=== PATIENT | female | born 1950 | race Caucasian/White ===

== ENCOUNTER 2022-10-05 17:39 | Emergency (ER) | payer MEDICARE, SELFPAY ==
--- NOTE | ~2022-10-05 | XR_ITS ---
EXAMINATION: XR CHEST CLINICAL INFORMATION: SOB was with deep inspiration COMPARISON: None TECHNIQUE: 2 views of the chest were obtained. FINDINGS: The lungs are well-expanded and clear. The heart size and pulmonary vascularity is normal. No gross bony abnormality seen. XR/XR chest 2V IMPRESSION: Unremarkable chest exam
--- NOTE | ~2022-10-05 | CT_ITS ---
EXAMINATION: CT ANGIOGRAM OF THE CHEST WITH AND WITHOUT CONTRAST (CT PULMONARY ANGIOGRAM FOR PE) CLINICAL INFORMATION: Reason for Exam DYSPNEA; r/o PE COMPARISON: Chest radiograph about 6 hours ago TECHNIQUE: Prior to contrast administration, noncontrast localization images were obtained. Subsequently, multidetector volumetric imaging was performed from the thoracic inlet to below the diaphragms following the administration of 65 mL Omnipaque 350 intravenous contrast. No contrast reaction reported Sagittal, coronal, and MIP oblique sagittal reformatted images were obtained on the CT workstation, uploaded to PACS, and reviewed. This CT examination was performed using dose optimization techniques as appropriate, variously including the following: *Automated exposure control *Adjustment of mA and/or kV according to patient size (this includes techniques or standardized protocols for targeted exams where dose is matched to indication/reason for exam; i.e. extremities or head) *Use of iterative reconstruction technique Total exam dose-length product 221 mGy-cm FINDINGS: QUALITY OF STUDY/CONTRAST BOLUS: Satisfactory. PULMONARY ARTERIES: No central or segmental pulmonary emboli. THORACIC AORTA: No aneurysm or dissection. 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 No focal consolidation, nodules or masses. There is interstitial prominence seen with some septal thickening raising the question of CHF. Unfortunately no prior imaging is available to assess if some of these changes are chronic. PLEURA: No pleural effusion or pneumothorax. MEDIASTINUM: Normal heart size. No pericardial effusion. No hilar or mediastinal lymphadenopathy. No evidence of septal bowing or right heart strain. CORONARY ARTERY CALCIFICATION: None visualized on this study. CHEST WALL/AXILLA: No axillary or internal mammary lymphadenopathy. OSSEOUS STRUCTURES: No acute or suspicious osseous abnormality. UPPER ABDOMEN: There is a 1.7 cm mass at the upper pole of the left kidney measuring water density consistent with a benign Bosniak class I cyst which needs no additional imaging or follow-up No reflux of contrast into the hepatic veins to suggest elevated right heart pressures. CT/CT angio chest PE protocol IMPRESSION: 1. No evidence of pulmonary emboli. 2. Interstitial prominence with some septal thickening raising the question of mild CHF. Please correlate clinically. VTE: negative.
--- NOTE | 2022-10-05 17:57 | ED.SOB ---
HPI - SOB/Dyspnea General Chief Complaint: Dyspnea <BONITA Marte - Last Filed: 10/05/22 18:09> Stated Complaint: Sob, concerned clot in heart? <BONITA Marte - Last Filed: 10/05/22 18:09> Time Seen by Provider: 10/05/22 21:44 <BONITA Marte - Last Filed: 10/05/22 18:09> Source: patient <Anisa Bacon MD - Last Filed: 10/06/22 00:55> Mode of arrival: ambulatory <Anisa Bacon MD - Last Filed: 10/06/22 00:55> Limitations: no limitations <Anisa Bacon MD - Last Filed: 10/06/22 00:55> History of Present Illness HPI Narrative: Patient comes to the emergency room complaining of 1 week of shortness of breath with exertion. Patient states that 1 week ago she woke up the stairs from the 1st floor to the 2nd [place], by the time she reached the top, patient was very short of breath. No chest pain. No syncopal or near syncopal episodes. Patient went to see her primary care physician, EKG, x-rays, labs were ordered. Also, patient is scheduled for an echocardiogram. <Anisa Bacon MD - Last Filed: 10/06/22 00:55> Related Data Allergies/Adverse Reactions: Allergies Allergy/AdvReac Type Severity Reaction Status Date / Time Penicillins Allergy Hallucinati Verified 10/05/22 17:57 ons <BONITA Marte - Last Filed: 10/05/22 18:09> Review of Systems Review of Systems: Constitutional : No Weight loss, No Fever, No Chills, No Night Sweats, No Fatigue, No Malaise ENT/Mouth : No Hearing loss, No Ear Pain, No Nasal Congestion, No Sinus Pain, No Hoarseness, No sore throat, No Rhinorrhea, No Swallowing Difficulty Eyes: No Eye Pain, No Swelling, No Redness, No Foreign Body, No Discharge, No Vision Changes Cardiovascular : No Chest Pain, no orthopnea, no edema, complaining of shortness of breath with exertion Respiratory : No Cough, No Sputum, No Wheezing, No Smoke Exposure, complaining of exertional dyspnea Gastrointestinal : No Nausea, No Vomiting, No Diarrhea, No Constipation, No abdominal Pain, No Hematochezia, No Melena Genitourinary : no irregular bleeding, No Dysuria, No Urinary Frequency, No Hematuria, No Urinary Incontinence, No Urgency, No Flank Pain, No Urinary Flow Changes, No Hesitancy Musculoskeletal : No joint pain, No Myalgias, No Joint Swelling Skin : No Skin Lesions, No rash Neuro : No Weakness, No Numbness, No Paresthesias, No Loss of Consciousness, No Dizziness, No Headache Psych : No Anxiety/Panic, No Depression, No SI/HI/AH/VH, No Social Issues, Heme/Lymph: No Bruising, No Bleeding,No Lymphadenopathy Endocrine : No Polyuria, No Polydipsia, No Temperature Intolerance <Anisa Bacon MD - Last Filed: 10/06/22 00:55> [facility] Social History Social History: Social History Advance Directives: Yes Advance Directives Information Provided: No Advance Directives on File: No <BONITA Marte - Last Filed: 10/05/22 18:09> Physical Exam Vital Signs: Vital Signs: Last Vital Signs Temp 97.2 F 10/05/22 22:36 Pulse 91 10/05/22 22:36 Resp 16 10/05/22 22:36 BP 148/75 H 10/05/22 22:36 Pulse Ox 96 10/05/22 22:36 O2 Del Method 10/05/22 22:36 BMI result Body Mass Index 28.3 <BONITA Marte - Last Filed: 10/05/22 18:09> Vital Signs: Last Vital Signs Temp 97.2 F 10/05/22 22:36 Pulse 91 10/05/22 22:36 Resp 16 10/05/22 22:36 BP 148/75 H 10/05/22 22:36 Pulse Ox 96 10/05/22 22:36 O2 Del Method 10/05/22 22:36 BMI result Body Mass Index 28.3 <Anisa Bacon MD - Last Filed: 10/06/22 00:55> Const: Other: Appearance: Alert. Oriented X3. No acute distress. Eyes: Pupils equal, round and reactive to light. ENT: Pharynx normal. Neck: Normal inspection. Neck supple. No lymph nodes noted. No crepitus CVS: Normal heart rate and rhythm. Pulses normal. Normal S1 and S2 Respiratory: No respiratory distress. Breath sounds normal. No Wheezing. No rales Abdomen: Soft and nontender. No rigidity. No distention. Skin: Skin warm and dry. Normal skin color. Normal skin turgor. Extremities: No lower extremity edema. No Lacerations. No Rash Neuro: Oriented X 3. No motor deficit. No sensory deficit. Moving all extremities. No slurred speech. CN 2 through 12 grossly intact Psych: calm, cooperative, anxious <Anisa Bacon MD - Last Filed: 10/06/22 00:55> Course Course Course Narrative: RME-17:57PM - 72yoF presenting to the ED with c/o SOB/MORRISON since Wednesday when she [place] the mall and unable to take deep breaths with pain when she takes a deep breath. Reports associated intermittent productive cough. Cleared colored sputum although on first day had black sputum . Hx of knee replacement in 2015 no recent surgeries. Seen by PCP on Wednesday and had labs, had an EKG which revealed RSR in V1 and PCP ordered a outpatient stress test and echocardiogram and was instructed to start a baby aspirin. Reports she feel on wednesday and injuried her right hand and bruise to right amish area. No LOC. no prolonged down time. Denies dizziness, weakness, leg swelling, calf tenderness, recent travel, recent immobilization or surgeries, history of DVT or PE, history of cancer, N/V/D, abdominal pain or any other symptoms complaints or concerns at this time. Plan: Labs, CXR, EKG, UA, COVID/RSV/FLU swab. Pt sent in waiting room to be evaluated the ED. <BONITA Marte - Last Filed: 10/05/22 18:09> Medications Administered Discontinued Medications Generic Name Dose Route Start Last Admin Trade Name Freq PRN Reason Stop Dose Admin Iohexol 65 ml 10/05/22 23:51 10/05/22 23:54 Iohexol 350 Mg/Ml 100 Ml Infus..Btl IV 10/05/22 23:52 65 ml ONCE ONE Administration <BONITA Marte - Last Filed: 10/05/22 18:09> Medications Administered Discontinued Medications Generic Name Dose Route Start Last Admin Trade Name Freq PRN Reason Stop Dose Admin Iohexol 65 ml 10/05/22 23:51 10/05/22 23:54 Iohexol 350 Mg/Ml 100 Ml Infus..Btl IV 10/05/22 23:52 65 ml ONCE ONE Administration <Anisa Bacon MD - Last Filed: 10/06/22 00:55> Medical Decision Making Medical Decision Making [facility] Narrative: -hematology and D-dimer pending -chemistries unremarkable -patient tested negative for influenza, RSV and COVID -patient's urine shows trace leukocyte esterase, patient has no UTI symptoms, no antibiotic indicated at this time -chest x-ray unremarkable -EKG interpreted by me: Sinus heart rate 94, no ST segment depression or elevation, no T-wave inversion, QTC 430 -I discussed with the patient that her CT scan for pulmonary embolism was negative. -patient was ambulated around the emergency room, patient's oxygen saturation remained at 97% the whole time. Patient did not have any episodes of shortness of breath or syncopal or near syncopal episodes. <Anisa Bacon MD - Last Filed: 10/06/22 00:55> Differential Diagnosis Differential Diagnoses: The differential diagnosis associated with the presentation includes (Pulmonary embolism, deconditioning, CHF) <Anisa Bacon MD - Last Filed: 10/06/22 00:55> Lab Data [facility] Lab Attestation statement: I reviewed the patient's lab results. <Anisa Bacon MD - Last Filed: 10/06/22 00:55> Result Diagrams: 10/05/22 19:13 10/05/22 19:14 <BONITA Marte - Last Filed: 10/05/22 18:09> Labs: Lab Results 10/05/22 10/05/22 10/05/22 Range/Units 19:13 19:13 19:13 WBC Cancelled RBC Cancelled Hgb Cancelled Hct Cancelled MCV Cancelled MCH Cancelled MCHC Cancelled RDW Cancelled Plt Count Cancelled MPV Cancelled Immature Gran % (Auto) Cancelled Neut % (Auto) Cancelled Lymph % (Auto) Cancelled [place] % (Auto) Cancelled Eos % (Auto) Cancelled Baso % (Auto) Cancelled Lymph # (Auto) Cancelled [place] # (Auto) Cancelled Eos # (Auto) Cancelled Baso # (Auto) Cancelled Abs Immat Gran (auto) Cancelled Absolute Neuts (auto) Cancelled Absolute Nucleated RBC Cancelled Nucleated RBC % (auto) Cancelled PT 13.0 (10.0-13.1) SEC INR 1.1 (0.9-1.1) D-Dimer High Sensitivty 247 NG/ML Sodium (135-145) mmol/L Potassium (3.3-5.1) mmol/L Chloride (96-108) mmol/L Carbon Dioxide (22-29) mmol/L Anion Gap (12-20) BUN (9-16) mg/dL Creatinine (0.5-1.4) mg/dL Estim Creat Clear Calc Estimated GFR Random Glucose (60-115) mg/dL Calcium (8.4-10.2) mg/dL Magnesium (1.6-2.6) mg/dL Total Bilirubin (0.0-1.0) mg/dL AST (5-31) U/L ALT (0-31) U/L Alkaline Phosphatase (39-117) U/L Troponin I High Sens < 3.5 (<3.5-17.0) ng/L B-Natriuretic Peptide (<100) pg/mL Total Protein (6.5-8.0) g/dL Albumin (3.5-5.0) g/dL Urine Color Urine Appearance Urine pH (5.0-9.0) Ur Specific [place] (1.005-1.025) Urine Protein (Neg-Trace) mg/dL Urine Glucose (UA) (Negative) mg/dL Urine Ketones (Negative) mg/dL Urine Blood (Negative) Urine Nitrite (Negative) Ur Leukocyte Esterase (Negative) Urine RBC (0-2) /HPF Urine WBC (0-5) /HPF Ur Squamous Epith Cells (0-2) /HPF Urine Bacteria (None Seen) Hyaline Casts (0-2) /LPF Influenza Type A (PCR) (Negative) Influenza Type B (PCR) (Negative) RSV RNA Qual (PCR) (Negative) SARS-CoV-2 RNA (RT-PCR) (Negative) 10/05/22 10/05/22 10/05/22 Range/Units 19:13 19:13 19:13 WBC RBC Hgb Hct MCV MCH MCHC RDW Plt Count MPV Immature Gran % (Auto) Neut % (Auto) Lymph % (Auto) [place] % (Auto) Eos % (Auto) Baso % (Auto) Lymph # (Auto) [place] # (Auto) Eos # (Auto) Baso # (Auto) Abs Immat Gran (auto) Absolute Neuts (auto) Absolute Nucleated RBC Nucleated RBC % (auto) PT (10.0-13.1) SEC INR (0.9-1.1) D-Dimer High Sensitivty NG/ML Sodium (135-145) mmol/L Potassium (3.3-5.1) mmol/L Chloride (96-108) mmol/L Carbon Dioxide (22-29) mmol/L Anion Gap (12-20) BUN (9-16) mg/dL Creatinine (0.5-1.4) mg/dL Estim Creat Clear Calc Estimated GFR Random Glucose (60-115) mg/dL Calcium (8.4-10.2) mg/dL Magnesium (1.6-2.6) mg/dL Total Bilirubin (0.0-1.0) mg/dL AST (5-31) U/L ALT (0-31) U/L Alkaline Phosphatase (39-117) U/L Troponin I High Sens (<3.5-17.0) ng/L B-Natriuretic Peptide < 10 (<100) pg/mL Total Protein (6.5-8.0) g/dL Albumin (3.5-5.0) g/dL Urine Color Dark Yellow Urine Appearance Clear Urine pH 5.5 (5.0-9.0) Ur Specific [place] >= 1.030 H (1.005-1.025) Urine Protein Trace (Neg-Trace) mg/dL Urine Glucose (UA) Negative (Negative) mg/dL Urine Ketones Trace (Negative) mg/dL Urine Blood Negative (Negative) Urine Nitrite Negative (Negative) Ur Leukocyte Esterase Trace H (Negative) Urine RBC 0-2 (0-2) /HPF Urine WBC 0-5 (0-5) /HPF Ur Squamous Epith Cells 3-5 (0-2) /HPF Urine Bacteria None Seen (None Seen) Hyaline Casts 0-2 (0-2) /LPF Influenza Type A (PCR) NEGATIVE (Negative) Influenza Type B (PCR) NEGATIVE (Negative) RSV RNA Qual (PCR) NEGATIVE (Negative) SARS-CoV-2 RNA (RT-PCR) NEGATIVE (Negative) 10/05/22 10/05/22 Range/Units 19:14 22:01 WBC 3.8 L RBC 4.08 L Hgb 12.1 Hct 36.6 L MCV 89.7 MCH 29.7 MCHC 33.1 RDW 12.2 Plt Count 231 MPV 10.7 Immature Gran % (Auto) 0.3 Neut % (Auto) 58.3 Lymph % (Auto) 16.2 L [place] % (Auto) 15.1 H Eos % (Auto) 9.3 H Baso % (Auto) 0.8 Lymph # (Auto) 0.6 L [place] # (Auto) 0.6 Eos # (Auto) 0.4 Baso # (Auto) 0.0 Abs Immat Gran (auto) 0.01 Absolute Neuts (auto) 2.2 Absolute Nucleated RBC 0.000 Nucleated RBC % (auto) 0.0 PT (10.0-13.1) SEC INR (0.9-1.1) D-Dimer High Sensitivty NG/ML Sodium 141 (135-145) mmol/L Potassium 3.8 (3.3-5.1) mmol/L Chloride 103 (96-108) mmol/L Carbon Dioxide 28 (22-29) mmol/L Anion Gap 14 (12-20) BUN 19 H (9-16) mg/dL Creatinine 0.85 (0.5-1.4) mg/dL Estim Creat Clear Calc 48.5 Estimated GFR > 60 Random Glucose 83 (60-115) mg/dL Calcium 9.6 (8.4-10.2) mg/dL Magnesium 2.1 (1.6-2.6) mg/dL Total Bilirubin 0.6 (0.0-1.0) mg/dL AST 21 (5-31) U/L ALT 15 (0-31) U/L Alkaline Phosphatase 75 (39-117) U/L Troponin I High Sens (<3.5-17.0) ng/L B-Natriuretic Peptide (<100) pg/mL Total Protein 7.0 (6.5-8.0) g/dL Albumin 4.1 (3.5-5.0) g/dL Urine Color Urine Appearance Urine pH (5.0-9.0) Ur Specific [place] (1.005-1.025) Urine Protein (Neg-Trace) mg/dL Urine Glucose (UA) (Negative) mg/dL Urine Ketones (Negative) mg/dL Urine Blood (Negative) Urine Nitrite (Negative) Ur Leukocyte Esterase (Negative) Urine RBC (0-2) /HPF Urine WBC (0-5) /HPF Ur Squamous Epith Cells (0-2) /HPF Urine Bacteria (None Seen) Hyaline Casts (0-2) /LPF Influenza Type A (PCR) (Negative) Influenza Type B (PCR) (Negative) RSV RNA Qual (PCR) (Negative) SARS-CoV-2 RNA (RT-PCR) (Negative) <BONITA Marte - Last Filed: 10/05/22 18:09> Lab Results 10/05/22 10/05/22 10/05/22 Range/Units 19:13 19:13 19:13 WBC Cancelled RBC Cancelled Hgb Cancelled Hct Cancelled MCV Cancelled MCH Cancelled MCHC Cancelled RDW Cancelled Plt Count Cancelled MPV Cancelled Immature Gran % (Auto) Cancelled Neut % (Auto) Cancelled Lymph % (Auto) Cancelled [place] % (Auto) Cancelled Eos % (Auto) Cancelled Baso % (Auto) Cancelled Lymph # (Auto) Cancelled [place] # (Auto) Cancelled Eos # (Auto) Cancelled Baso # (Auto) Cancelled Abs Immat Gran (auto) Cancelled Absolute Neuts (auto) Cancelled Absolute Nucleated RBC Cancelled Nucleated RBC % (auto) Cancelled PT 13.0 (10.0-13.1) SEC INR 1.1 (0.9-1.1) D-Dimer High Sensitivty 247 NG/ML Sodium (135-145) mmol/L Potassium (3.3-5.1) mmol/L Chloride (96-108) mmol/L Carbon Dioxide (22-29) mmol/L Anion Gap (12-20) BUN (9-16) mg/dL Creatinine (0.5-1.4) mg/dL Estim Creat Clear Calc Estimated GFR Random Glucose (60-115) mg/dL Calcium (8.4-10.2) mg/dL Magnesium (1.6-2.6) mg/dL Total Bilirubin (0.0-1.0) mg/dL AST (5-31) U/L ALT (0-31) U/L Alkaline Phosphatase (39-117) U/L Troponin I High Sens < 3.5 (<3.5-17.0) ng/L B-Natriuretic Peptide (<100) pg/mL Total Protein (6.5-8.0) g/dL Albumin (3.5-5.0) g/dL Urine Color Urine Appearance Urine pH (5.0-9.0) Ur Specific [place] (1.005-1.025) Urine Protein (Neg-Trace) mg/dL Urine Glucose (UA) (Negative) mg/dL Urine Ketones (Negative) mg/dL Urine Blood (Negative) Urine Nitrite (Negative) Ur Leukocyte Esterase (Negative) Urine RBC (0-2) /HPF Urine WBC (0-5) /HPF Ur Squamous Epith Cells (0-2) /HPF Urine Bacteria (None Seen) Hyaline Casts (0-2) /LPF Influenza Type A (PCR) (Negative) Influenza Type B (PCR) (Negative) RSV RNA Qual (PCR) (Negative) SARS-CoV-2 RNA (RT-PCR) (Negative) 10/05/22 10/05/22 10/05/22 Range/Units 19:13 19:13 19:13 WBC RBC Hgb Hct MCV MCH MCHC RDW Plt Count MPV Immature Gran % (Auto) Neut % (Auto) Lymph % (Auto) [place] % (Auto) Eos % (Auto) Baso % (Auto) Lymph # (Auto) [place] # (Auto) Eos # (Auto) Baso # (Auto) Abs Immat Gran (auto) Absolute Neuts (auto) Absolute Nucleated RBC Nucleated RBC % (auto) PT (10.0-13.1) SEC INR (0.9-1.1) D-Dimer High Sensitivty NG/ML Sodium (135-145) mmol/L Potassium (3.3-5.1) mmol/L Chloride (96-108) mmol/L Carbon Dioxide (22-29) mmol/L Anion Gap (12-20) BUN (9-16) mg/dL Creatinine (0.5-1.4) mg/dL Estim Creat Clear Calc Estimated GFR Random Glucose (60-115) mg/dL Calcium (8.4-10.2) mg/dL Magnesium (1.6-2.6) mg/dL Total Bilirubin (0.0-1.0) mg/dL AST (5-31) U/L ALT (0-31) U/L Alkaline Phosphatase (39-117) U/L Troponin I High Sens (<3.5-17.0) ng/L B-Natriuretic Peptide < 10 (<100) pg/mL Total Protein (6.5-8.0) g/dL Albumin (3.5-5.0) g/dL Urine Color Dark Yellow Urine Appearance Clear Urine pH 5.5 (5.0-9.0) Ur Specific [place] >= 1.030 H (1.005-1.025) Urine Protein Trace (Neg-Trace) mg/dL Urine Glucose (UA) Negative (Negative) mg/dL Urine Ketones Trace (Negative) mg/dL Urine Blood Negative (Negative) Urine Nitrite Negative (Negative) Ur Leukocyte Esterase Trace H (Negative) Urine RBC 0-2 (0-2) /HPF Urine WBC 0-5 (0-5) /HPF Ur Squamous Epith Cells 3-5 (0-2) /HPF Urine Bacteria None Seen (None Seen) Hyaline Casts 0-2 (0-2) /LPF Influenza Type A (PCR) NEGATIVE (Negative) Influenza Type B (PCR) NEGATIVE (Negative) RSV RNA Qual (PCR) NEGATIVE (Negative) SARS-CoV-2 RNA (RT-PCR) NEGATIVE (Negative) 10/05/22 10/05/22 Range/Units 19:14 22:01 WBC 3.8 L RBC 4.08 L Hgb 12.1 Hct 36.6 L MCV 89.7 MCH 29.7 MCHC 33.1 RDW 12.2 Plt Count 231 MPV 10.7 Immature Gran % (Auto) 0.3 Neut % (Auto) 58.3 Lymph % (Auto) 16.2 L [place] % (Auto) 15.1 H Eos % (Auto) 9.3 H Baso % (Auto) 0.8 Lymph # (Auto) 0.6 L [place] # (Auto) 0.6 Eos # (Auto) 0.4 Baso # (Auto) 0.0 Abs Immat Gran (auto) 0.01 Absolute Neuts (auto) 2.2 Absolute Nucleated RBC 0.000 Nucleated RBC % (auto) 0.0 PT (10.0-13.1) SEC INR (0.9-1.1) D-Dimer High Sensitivty NG/ML Sodium 141 (135-145) mmol/L Potassium 3.8 (3.3-5.1) mmol/L Chloride 103 (96-108) mmol/L Carbon Dioxide 28 (22-29) mmol/L Anion Gap 14 (12-20) BUN 19 H (9-16) mg/dL Creatinine 0.85 (0.5-1.4) mg/dL Estim Creat Clear Calc 48.5 Estimated GFR > 60 Random Glucose 83 (60-115) mg/dL Calcium 9.6 (8.4-10.2) mg/dL Magnesium 2.1 (1.6-2.6) mg/dL Total Bilirubin 0.6 (0.0-1.0) mg/dL AST 21 (5-31) U/L ALT 15 (0-31) U/L Alkaline Phosphatase 75 (39-117) U/L Troponin I High Sens (<3.5-17.0) ng/L B-Natriuretic Peptide (<100) pg/mL Total Protein 7.0 (6.5-8.0) g/dL Albumin 4.1 (3.5-5.0) g/dL Urine Color Urine Appearance Urine pH (5.0-9.0) Ur Specific [place] (1.005-1.025) Urine Protein (Neg-Trace) mg/dL Urine Glucose (UA) (Negative) mg/dL Urine Ketones (Negative) mg/dL Urine Blood (Negative) Urine Nitrite (Negative) Ur Leukocyte Esterase (Negative) Urine RBC (0-2) /HPF Urine WBC (0-5) /HPF Ur Squamous Epith Cells (0-2) /HPF Urine Bacteria (None Seen) Hyaline Casts (0-2) /LPF Influenza Type A (PCR) (Negative) Influenza Type B (PCR) (Negative) RSV RNA Qual (PCR) (Negative) SARS-CoV-2 RNA (RT-PCR) (Negative) <Anisa Bacon MD - Last Filed: 10/06/22 00:55> Independent Interpretation I performed an independent interpretation of an: CT Scan (My interpretation CTA: No pulmonary embolism visualized) <Anisa Bacon MD - Last Filed: 10/06/22 00:55> Radiology Impression Discussion of test interpretation with radiology: I have reviewed the radiologist's reading. <Anisa Bacon MD - Last Filed: 10/06/22 00:55> Radiologist Impression: INDINGS: The lungs are well-expanded and clear. The heart size and pulmonary vascularity is normal. No gross bony abnormality seen. XR/XR chest 2V IMPRESSION: Unremarkable chest exam <Anisa Bacon MD - Last Filed: 10/06/22 00:55> Discharge Plan Discharge Clinical Impression: Exertional dyspnea <BONITA Marte - Last Filed: 10/05/22 18:09> Patient Disposition: Home, Self-Care <BONITA Marte - Last Filed: 10/05/22 18:09> Instructions: Dyspnea (ED) <BONITA Marte - Last Filed: 10/05/22 18:09> Additional Instructions: Please follow-up with your primary care physician tomorrow. If you have any worsening or new symptoms, please return to the emergency room or call 911 <BONITA Marte - Last Filed: 10/05/22 18:09>
--- NOTE | 2022-10-05 17:58 | ECG_ITS ---
Test Reason : chest presure/sob Blood Pressure : / mmHG Vent. Rate : 094 BPM Atrial Rate : 094 BPM P-R Int : 156 ms QRS Dur : 078 ms QT Int : 344 ms P-R-T Axes : 056 -38 023 degrees QTc Int : 430 ms Normal sinus rhythm Left axis deviation Abnormal ECG No previous ECGs available Referred By: Enriqueta Mckinney Electronically Signed By:Luis Fernando Brasher
[2022-10-05 17:59] VITALS: BP 147/72; PULSE 97; RESP 18; TEMP 36.6; O2SAT 100; BMI 28.3
[2022-10-05 19:38] LABS: Appearance Urine Clear; Color Urine Dark Yellow; Glucose Urine UA Negative (Negative); Leukocyte Esterase Urine Trace (Negative); Nitrite Urine Negative (Negative); PH 5.5 (5.0-9.0); Specific Gravity - Urine >= 1.030 (1.005-1.025); UMIC TRIGGER UACC YES; Urine Blood Negative (Negative); Urine Ketones Trace mg/dL (Negative); Urine Protein Trace mg/dL (Neg-Trace)
[2022-10-05 19:42] LABS: INTERNATIONAL NORM RATIO 1.1 (0.9-1.1)
[2022-10-05 19:43] LABS: Bacteria Urine None Seen (None Seen); Hyaline Casts Urine 0-2 /LPF (0-2); RBC Urine 0-2 /HPF (0-2); WBC Urine 0-5 /HPF (0-5)
[2022-10-05 19:47] LABS: Alanine Aminotransferase 15 U/L (0-31); Albumin Level 4.1 g/dL (3.5-5.0); Alkaline Phosphatase 75 U/L (39-117); Anion Gap 14 (12-20); Aspartate Amino Transferase 21 U/L (5-31); Bilirubin Total 0.6 mg/dL (0.0-1.0); Blood Urea Nitrogen 19 mg/dL (9-16); Calcium 9.6 mg/dL (8.4-10.2); Carbon Dioxide 28 mmol/L (22-29); Chloride 103 mmol/L (96-108); Creatinine Clr Calc Pharmacy 48.5; Estimated Glomerular Filt Rate > 60; Glucose Random 83 mg/dL (60-115); Magnesium 2.1 mg/dL (1.6-2.6); Potassium 3.8 mmol/L (3.3-5.1); Sodium 141 mmol/L (135-145)
[2022-10-05 19:54] LABS: Troponin-I High Sensitivity < 3.5 ng/L (<3.5-17.0)
[2022-10-05 20:09] LABS: B Type Natriuretic Peptide < 10 pg/mL (<100)
[2022-10-05 20:11] LABS: Influenza A PCR NEGATIVE (Negative); Influenza B PCR NEGATIVE (Negative); Resp Syncy Virus RNA Qual PCR NEGATIVE (Negative); SARS COV2 PCR INHOUSE NEGATIVE (Negative)
[2022-10-05 22:06] LABS: D Dimer High Sensitivity 247 NG/ML
[2022-10-05 22:06] LABS: MANUAL DIFF FLAG NO
[2022-10-05 22:07] LABS: Basophils Percent Auto 0.8 % (0-2); Eosinophils Absolute Auto 0.4 X10*3/uL (0.0-0.4); Eosinophils Percent Auto 9.3 % (0-4); Hematocrit 36.6 % (37.0-47.0); Hemoglobin 12.1 g/dl (12.0-16.0); Imm Gran Abs Auto 0.01 X10*3/uL (0.00-0.03); Imm Gran Pct Auto 0.3 % (0.0-0.4); Lymphocytes Absolute Auto 0.6 X10*3/uL (1.2-4.9); Lymphocytes Percent Auto 16.2 % (20-40); Mean Corpuscular HGB Conc 33.1 g/dl (31.0-35.0); Mean Corpuscular Hemoglobin 29.7 pg (27.0-33.0); Mean Corpuscular Volume 89.7 fL (80.0-98.0); Mean Platelet Volume 10.7 fL (9.4-12.3); Monocytes Absolute Auto 0.6 X10*3/uL (0.1-1.2); Monocytes Percent Auto 15.1 % (2-11); Neutrophils Absolute Auto 2.2 x10*3/uL (2.0-8.3); Neutrophils Percent Auto 58.3 % (45-73); Platelet Count 231 X10*3/uL (160-400); Red Blood Count 4.08 X10*6/uL (4.20-5.50); Red Cell Distribution Width 12.2 % (11.0-16.0); White Blood Count 3.8 X10*3/uL (4.8-10.8)
--- NOTE | 2022-10-05 22:32 | MHC.EDTECH ---
pt vitals were taken and she was walk around the ED on her O2, she did good O2 stayed at 97 HR 104 pt back into the room on the monitor doctor naif was told the outcome
[2022-10-05 22:36] VITALS: BP 148/75; PULSE 91; RESP 16; TEMP 36.2; O2SAT 96
[2022-10-05] MEDS: iohexoL 350 MG/ML 100 ML INFUS..BTL 65 ML IV (23:54)
[2022-10-06 01:07] VITALS: BP 148/81; PULSE 94; RESP 12; O2SAT 98
--- NOTE | 2022-10-06 01:13 | PC.NURSE ---
IV line removed. Pt tolerated well. Discharge instructions reviewed with pt. Pt verbalizes understanding.
== END 2022-10-06 01:19 | disposition home or self-care (01) ==
PROVIDERS: Physician Assistant Medical; Emergency Provider Emergency Medicine; PCP Internal Medicine
DX: R06.00 Dyspnea, unspecified (principal); R06.02 Shortness of breath; R07.89 Other chest pain; Z20.828 Contact with and (suspected) exposure to other viral communicable diseases; Z20.822 Contact with and (suspected) exposure to COVID-19; Z79.899 Other long term (current) drug therapy
CPT/HCPCS: 0241U; 36415; 71046; 71275; 80053; 81001; 83735; 83880; 84484; 85025; 85379; 85610; 93005; 99284; Q9967

== ENCOUNTER 2023-05-22 10:56 | Outpatient (AMB) | payer MEDICARE, SELFPAY ==
--- NOTE | 2023-05-22 11:05 | MHC.OFFWIV ---
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 Intake Note: Pt is here today c/o H/A, cough and chest congestion x2days Allergies Penicillins Allergy (Verified 05/22/23 11:30) Hallucinations azithromycin [From Zithromax Z-Butch] Adverse Reaction (Verified 05/22/23 11:30) Stomach Upset cephalexin [From Keflex] Adverse Reaction (Verified 05/22/23 11:30) Stomach Upset azthromycin Adverse Reaction (Uncoded 05/22/23 11:30) Stomach Upset 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 Her cough home COVID test was negative. She denies fever or chills, coughing fits, chest discomfort or pain, shortness of breath, weakness or dizziness or vertigo, myalgias or malaise, nausea vomiting or diarrhea, sore throat, loss of sense of taste or smell, or other significant associated symptoms. She denies immuno compromising issues, or underlying respiratory issues. She does have a history of C diff, and states she a list of medications she cannot take. Review of Systems Const All systems reviewed & are unremarkable except as noted in HPI and below Physical Exam Vital Signs: Last Vital Signs Temp 98.6 F 05/22/23 11:20 Pulse 90 05/22/23 11:20 BP 130/66 05/22/23 11:20 Pulse Ox 100 05/22/23 11:20 Oxygen Delivery Method Room Air 05/22/23 11:20 BMI result Body Mass Index 26.1 Const General: cooperative, healthy appearing, comfortable, no acute distress, alert, awake, Physically active and well groomed; No anxious, diaphoretic, ill appearing, intoxicated appearing, poor hygiene or tired appearing Nutritional Appearance: average body habitus Orientation/consciousness: oriented to person Limitations: no limitations HEENT Head: Yes normal to inspection, Yes normocephalic and Yes atraumatic Ears: hearing grossly normal bilaterally, external ears normal, EAC's normal and TM abnormal (Left TM with injection superior aspect) erythematous and with fluid behind the TM; not bulging, with no loss of landmarks, not obstructed by cerumen, not perforated and not retracted General nose exam: Normal external nose present, Abnormal mucous membranes and turbinates present and Nasal discharge present Face and sinus: Yes face symmetric Mouth: Normal oral and palatal mucosa present, lip normal and tongue normal Throat: Yes abnormal tonsil (mildly erythematous bilaterally), No peritonsillar mass, No postnasal drainage, No uvular edema and No cobblestoning Eyes General: appearance normal, both eyes and all related structures Neck Neck: Yes normal visual inspection, Yes no lymphadenopathy, Yes trachea midline, Yes supple and No anterior neck swelling Resp Effort & Inspection: normal respiratory effort, able to speak in complete sentences, no audible wheezes, no cough, no grunting, not labored, no nasal flaring, no retractions and symmetric chest movement Auscultation: clear to auscultation bilaterally, no crackles, no rales, no rhonchi, no wheezes, lung sounds not diminished and No rub present Cardio Palpation: normal PMI Rate: regular rate Rhythm: regular rhythm Skin Other: Good color, warm and dry Neuro General: oriented to person Psych Appearance: grossly normal Mental Status: mental status grossly normal Speech and movement: Normal speech and movement present Affect: normal affect Attitude: cooperative Thought process: Normal thought process present Insight: Good insight present (Psych) Judgement: Good judgement present (Psych) Assessment & Plan Assessment & Plan (1) Upper respiratory infection: Code(s): J06.9 - Acute upper respiratory infection, unspecified Qualifiers: URI type: acute nasopharyngitis (common cold) Qualified Code(s): J00 - Acute nasopharyngitis [common cold] Plan Patient with upper respiratory infection, pending results for COVID flu and RSV, however home COVID testing was negative. Patient has an early left acute otitis media, which she does not have any specific symptoms for. As she has a history of C diff, is very leery of taking antibiotics, I told her that we could do close monitoring, and that she should follow up if she suspects any worsening to the symptoms, including but not limited to left ear pain and pressure, decreased hearing, discharge from the ear, fever or chills, worsening headache, dizziness, nausea or vomiting, or other significant associated symptoms. In the meantime she will continue her oral allergy medication, and use Flonase, especially to the left nostril, and continue other supportive care for upper respiratory infection. Orders: Orders SARS-CoV2/FLU/RSV 05/22/23 R05.9 - Cough, unspecified Coding Level of Care Code New Pt Level 4 (27916) Diagnoses Acute nasopharyngitis J00 URI type: acute nasopharyngitis (common cold)
[2023-05-22 11:20] VITALS: BP 130/66; PULSE 90; TEMP 37; O2SAT 100; BMI 26.1
== END 2023-05-22 12:35 | disposition home or self-care (01) ==
PROVIDERS: PCP Internal Medicine; Visit Provider Physician Assistant Medical
DX: J00 Acute nasopharyngitis [common cold] (principal)
CPT/HCPCS: 99204

== ENCOUNTER 2023-05-22 12:26 | Outpatient (REF) | payer MEDICARE, SELFPAY ==
[2023-05-22 14:44] LABS: Influenza A PCR NEGATIVE (Negative); Influenza B PCR NEGATIVE (Negative); Resp Syncy Virus RNA Qual PCR NEGATIVE (Negative); SARS COV2 PCR INHOUSE NEGATIVE (Negative)
== END 2023-05-22 12:27 | disposition home or self-care (01) ==
LOC: HO.LAB 12:26
PROVIDERS: Visit Provider Physician Assistant Medical
DX: Z11.52 Encounter for screening for COVID-19 (principal); R05.9 Cough, unspecified; Z20.822 Contact with and (suspected) exposure to COVID-19
CPT/HCPCS: 0241U

== ENCOUNTER 2023-07-01 09:15 | Outpatient (REF) | payer MEDICARE, SELFPAY ==
--- NOTE | ~2023-07-01 | XR_ITS ---
EXAMINATION: XR SHOULDER, RIGHT CLINICAL INFORMATION: Pain in right shoulder. COMPARISON: None available. TECHNIQUE: 2 views of the right shoulder. FINDINGS: Mild degenerative changes in the acromioclavicular joint with joint space narrowing and hypertrophic change. Degenerative changes with hypertrophic change along the glenoid. Spurring along the inferior aspect of the acromion with narrowing of the subacromial space. XR/XR shoulder RT min 2V IMPRESSION: Mild degenerative changes as detailed above.
== END 2023-07-01 09:16 | disposition home or self-care (01) ==
LOC: HO.HOSX 09:15
PROVIDERS: Visit Provider Orthopaedic Surgery
DX: M25.511 Pain in right shoulder (principal); M25.562 Pain in left knee; Z79.899 Other long term (current) drug therapy
CPT/HCPCS: 73030; 99212

== ENCOUNTER 2023-07-01 12:21 | Outpatient (AMB) | payer MEDICARE, SELFPAY ==
--- NOTE | 2023-07-01 12:34 | MHC.OFFVIS ---
Intake Intake Visit Reasons: New-Right Shoulder Pain, Left knee pain Intake Note: Pema a 73 year old female presents today as a new patient to re-establish care with Dr. Lam for an evaluation of right shoulder. Patient reports pain has been present for a couple of months. She was seen at [facility] who ordered MRI and PT. patient states that her right shoulder discomfort has gotten somewhat better over the last few weeks. She denies any weakness. Today she is most concerned with progressively worsening left knee pain. She has had cortisone injections in the past which gave her minimal relief. She has also had viscosupplementation injections which gave her very good relief. She wishes to hold off on surgery for as long as possible. She has done physical therapy exercises which aggravated her symptoms. Allergies Penicillins Allergy (Verified 07/01/23 12:39) Hallucinations azithromycin [From Zithromax Z-Butch] Adverse Reaction (Verified 07/01/23 12:39) Stomach Upset cephalexin [From Keflex] Adverse Reaction (Verified 07/01/23 12:39) Stomach Upset azthromycin Adverse Reaction (Uncoded 07/01/23 12:39) Stomach Upset Medication List - Last Reconciled 07/01/23 by Williams Lam MD acetaminophen (Tylenol Extra Strength) 500 mg PO Q6H PRN ascorbic acid (vitamin C) 500 mg PO DAILY bupropion HCl 150 mg PO DAILY calcium citrate 500 mg PO DAILY cetirizine (Zyrtec) 10 mg PO DAILY PRN chlorhexidine gluconate 0.12% PO fluticasone propionate 50 mcg/actuation sprays intranasal multivitamin 1 tab PO DAILY zxpsa-5j-waq-epa-fish oil 350-600 mg (Fish Oil) 1,400 mg venlafaxine ER 150 mg PO DAILY vibegron (Gemtesa) 75 mg PO DAILY PFS Surgical History (Updated 07/01/23 @ 12:46 by Alejandrina Myles RN) H/O arthroscopy of right knee Hx of arthroscopy of left knee Status post total right knee replacement Physical Exam Const Other: Well-nourished well-developed very friendly female awake alert and oriented x3 in no acute distress Extrem Other: Right shoulder examination shows full range of motion when compared to her left shoulder, 4+ out of 5 strength with supraspinatus testing, positive impingement signs, no instability Left knee examination shows a minimal effusion, crepitus with range of motion, pain with range of motion Results Reviewed Results Reviewed: MRI of the patient's right shoulder shows moderate to severe acromioclavicular joint narrowing, a type 2 acromion, signal change within the supraspinatus tendon due to rotator cuff tendinosis versus a partial thickness tear X-rays of the patient's left knee show joint space narrowing, subchondral sclerosis, no acute bony abnormalities Assessment & Plan Assessment & Plan (1) Left knee pain: Code(s): M25.562 - Pain in left knee Plan Ms. Yancey presents with right shoulder pain due to impingement syndrome and rotator cuff tendinosis versus a partial thickness tear. I had a lengthy discussion with the patient regarding the treatment options. At this point the patient's symptoms are tolerable to her. Activity modifications were discussed at length with the patient. We will hold off on a cortisone injection. The patient also has left knee pain due to degenerative joint disease. She wishes to hold off on surgery for as long as possible. I agree with this plan. She has not gotten good relief from cortisone injections in the past. She has gotten good relief from viscosupplementation injections. Thus, I will see whether not her insurance company will cover a another viscosupplementation injection for her left knee. I will see her back once the injection is available. Feel free to call me at any time should questions regarding her orthopedic management arise. I spent 22 minutes in reviewing the patient's records and imaging studies, seeing the patient and documenting in the medical record. Orders: Orders XR shoulder RT min 2V Today M25.511 - Pain in right shoulder Coding Level of Care Code Est Pt Level 2 (40828) Diagnoses Left knee pain M25.562
== END 2023-07-01 13:03 | disposition home or self-care (01) ==
PROVIDERS: PCP Internal Medicine; Visit Provider Orthopaedic Surgery
DX: M25.562 Pain in left knee (principal)
CPT/HCPCS: 99212

== ENCOUNTER 2023-07-14 11:19 | Outpatient (AMB) | payer MEDICARE, SELFPAY ==
--- NOTE | 2023-07-14 11:26 | A.OFFVIS_ITS ---
Intake Intake Visit Reasons: ov- Left knee Durolane injection, Right shoulder pain Intake Note: ePma is a 73 year old female who presents today for a left knee durolane injection. She describes her left knee pain as sharp in nature. She has had cortisone injections in the past which gave her minimal relief. She did undergo right total knee replacement surgery several years ago. She denies any pain in her right knee. She would like to hold off on left total knee replacement mode zahra for as long as possible. She has tried Tylenol and anti-inflammatory medicines which gave her minimal relief. The patient also has progressively worsening right shoulder pain and weakness. The patient states that she did have an MRI of her right shoulder in the past which showed possible tearing of her rotator cuff tendons. Following the MRI someone was examining her shoulder and ?pulled on my arm . Since that time her pain and weakness have gotten progressively worse. The patient reports difficulty lifting her right hand above shoulder height. Allergies Penicillins Allergy (Verified 07/01/23 12:39) Hallucinations azithromycin [From Zithromax Z-Butch] Adverse Reaction (Verified 07/01/23 12:39) Stomach Upset cephalexin [From Keflex] Adverse Reaction (Verified 07/01/23 12:39) Stomach Upset azthromycin Adverse Reaction (Uncoded 07/01/23 12:39) Stomach Upset PFSH Surgical History H/O arthroscopy of right knee Hx of arthroscopy of left knee Status post total right knee replacement Physical Exam Const Other: Well-nourished well-developed very friendly female awake alert and oriented x3 in no acute distress Extrem Other: Bilateral upper extremity examination shows good capillary refill, no skin lesions noted, normal sensation light touch Right shoulder examination shows decreased range of motion when compared to her left shoulder, 4/5 strength with supraspinatus testing, positive impingement signs, tenderness over her acromioclavicular joint , no instability Left knee examination shows a minimal effusion, palpable crepitus with range of motion, pain with range of motion Office Procedures Joint Injection/Drain Joint Injection/Drain Primary Site: left knee Prep: site was prepped using aseptic technique Injected: 60 mg of (Durolane) and 1% plain lidocaine Procedure: The patient tolerated the procedure well Coding 93364 - Large joint Procedure code (CPT) selection complete Results Reviewed Results Reviewed: X-rays of the patient's left knee show joint space narrowing, subchondral sclerosis, no acute bony abnormalities Assessment & Plan Assessment & Plan (1) Right shoulder pain: Code(s): M25.511 - Pain in right shoulder Plan: Ms. Yancey presents with left the pain due to degenerative joint disease. I had a lengthy discussion with the patient regarding the treatment options. She wishes to hold off on left total knee replacement surgery for as long as possible. I agree with this plan. She has not gotten good relief from cortisone injections in the past. Thus, the risks and benefits of a left knee Durolane viscosupplementation injection were discussed at length with the patient. The patient wished to proceed. She tolerated the injection well. The patient also has progressively worsening right shoulder pain and weakness possibly due to worsening of her partial-thickness rotator cuff tear. Thus, I will send her for an MRI of her right shoulder for further evaluation. I will see her back once the MRI is completed to discuss the findings and treatment options. Feel free to call me at any time should questions regarding her orthopedic management arise. (2) Arthritis of left knee: Code(s): M17.12 - Unilateral primary osteoarthritis, left knee Plan I spent 22 minutes in reviewing the patient's records and imaging studies, seeing the patient and documenting in the medical record. Orders: Orders MR shoulder RT wo con Today M25.311 - Other instability, right shoulder AMB Joint Injection/Aspiration Today M17.12 - Unilateral primary osteoarthritis, left knee Coding Level of Care Code Est Pt Level 2 (56330) Diagnoses Right shoulder pain M25.511 Arthritis of left knee M17.12 CPT Codes Coding - Large joint: 51732 - Large joint ([id number])
== END 2023-07-14 11:46 | disposition home or self-care (01) ==
PROVIDERS: PCP Internal Medicine; Visit Provider Orthopaedic Surgery
DX: M25.511 Pain in right shoulder (principal); M17.12 Unilateral primary osteoarthritis, left knee
CPT/HCPCS: 20610; 99213

== ENCOUNTER → 2023-07-14 11:19 | Outpatient (BNVA) | payer MEDICARE, SELFPAY | PROVIDERS: PCP Internal Medicine; Visit Provider Orthopaedic Surgery | DX: M17.12 Unilateral primary osteoarthritis, left knee (principal); M25.511 Pain in right shoulder | CPT/HCPCS: 20610; 99212; J7318 ==

== ENCOUNTER 2023-08-03 13:37 | Outpatient (AMB) | payer MEDICARE, SELFPAY ==
[2023-08-03 13:38] VITALS: BMI 26.1
--- NOTE | 2023-08-03 13:38 | MHC.OFFVIS ---
Intake Vital Signs 08/03/23 13:38 Height 4 ft 11 in Weight 129 lb BMI 26.1 Intake Visit Reasons: Ov- MRI Review Rt shoulder pain Intake Note: Pema is a 73 year old female who presents for a Right shoulder MRI review. The patient describes her right shoulder pain as achy in nature. She has done physical therapy which gave her mild relief. She continues with her activity modifications. She wishes to hold off on surgery if at all possible. Allergies Penicillins Allergy (Verified 08/03/23 13:41) Hallucinations azithromycin [From Zithromax Z-Butch] Adverse Reaction (Verified 08/03/23 13:41) Stomach Upset cephalexin [From Keflex] Adverse Reaction (Verified 08/03/23 13:41) Stomach Upset azthromycin Adverse Reaction (Uncoded 07/01/23 12:39) Stomach Upset Medication List - Last Reconciled 08/03/23 by Williams Lam MD acetaminophen (Tylenol Extra Strength) 500 mg PO Q6H PRN ascorbic acid (vitamin C) 500 mg PO DAILY bupropion HCl 150 mg PO DAILY calcium citrate 500 mg PO DAILY cetirizine (Zyrtec) 10 mg PO DAILY PRN chlorhexidine gluconate 0.12% PO fluticasone propionate 50 mcg/actuation sprays intranasal multivitamin 1 tab PO DAILY bmlvp-6p-kna-epa-fish oil 350-600 mg (Fish Oil) 1,400 mg venlafaxine ER 150 mg PO DAILY vibegron (Gemtesa) 75 mg PO DAILY PFSH Surgical History H/O arthroscopy of right knee Hx of arthroscopy of left knee Status post total right knee replacement Physical Exam Vital Signs: BMI result Body Mass Index 26.1 Const Other: Well-nourished well-developed very friendly female awake alert and oriented x3 in no acute distress Extrem Other: Bilateral upper extremity examination shows good capillary refill, no skin lesions noted, normal sensation light touch Right shoulder examination shows slightly decreased range of motion when compared to her left shoulder, 4/5 strength with supraspinatus testing, positive impingement signs, tenderness over her acromioclavicular joint, no instability Results Reviewed Results Reviewed: MRI of the patient's right shoulder shows a type 2 acromion, acromioclavicular joint narrowing and a small full-thickness tear of the supraspinatus tendon Assessment & Plan Assessment & Plan (1) Right shoulder pain: Code(s): M25.511 - Pain in right shoulder Plan Ms. Yancey presents with right shoulder pain and weakness due to impingement syndrome, acromioclavicular joint arthritis and a small full-thickness rotator cuff tear. I had a lengthy discussion with the patient regarding the treatment options. At this point the patient's symptoms are tolerable to her. She will continue with her activity modifications. She wishes to hold off on surgery if at all possible. The patient does understand that her rotator cuff tear can increase in size and even become irreparable. The patient will contact me prior to her follow-up appointment in 3 months should her symptoms worsen in any way. Feel free to call me at any time should questions regarding her orthopedic management arise. I spent 22 minutes in reviewing the patient's records and imaging studies, seeing the patient and documenting in the medical record. Coding Level of Care Code Est Pt Level 2 (21152) Diagnoses Right shoulder pain M25.511
== END 2023-08-03 14:06 | disposition home or self-care (01) ==
LOC: HO.HOS 13:37
PROVIDERS: PCP Internal Medicine; Visit Provider Orthopaedic Surgery
DX: M75.41 Impingement syndrome of right shoulder (principal); M19.011 Primary osteoarthritis, right shoulder
CPT/HCPCS: 99213

== ENCOUNTER → 2023-08-03 13:37 | Outpatient (BNVA) | payer MEDICARE, SELFPAY | PROVIDERS: PCP Internal Medicine; Visit Provider Orthopaedic Surgery | DX: M25.511 Pain in right shoulder (principal) | CPT/HCPCS: 99212 ==

== ENCOUNTER 2023-12-02 13:30 | Outpatient (AMB) | payer MEDICARE, SELFPAY ==
[2023-12-02 13:37] VITALS: BMI 26.1
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
== END 2023-12-02 13:58 | disposition home or self-care (01) ==
PROVIDERS: PCP Internal Medicine; Visit Provider Orthopaedic Surgery
DX: M25.511 Pain in right shoulder (principal)
CPT/HCPCS: 99213

== ENCOUNTER → 2023-12-02 13:30 | Outpatient (BNVA) | payer MEDICARE, SELFPAY | PROVIDERS: PCP Internal Medicine; Visit Provider Orthopaedic Surgery | DX: M25.511 Pain in right shoulder (principal) | CPT/HCPCS: 99212 ==

== ENCOUNTER 2024-03-01 13:09 | Outpatient (AMB) | payer MEDICARE, SELFPAY ==
--- NOTE | 2024-03-01 13:16 | A.OFFVIS_ITS ---
Intake Visit Reasons: Left knee pain Intake Note: Pema is a 73 year old female who presents with complaints of progressively worsening left knee pain. She describes her pain as sharp in nature. She did undergo right total knee replacement surgery in the past. She denies any pain in her right knee. She has had cortisone injections in the past which gave her minimal relief. She has failed the last 3 months of a home exercise program, topical cream application as well as Tylenol and anti-inflammatory medicines. She wishes hold off on left total knee replacement surgery for as long as possible. Her left knee pain is now interfering with her activities of daily living and her ability to sleep well through the night. She did have a Durolane viscosupplementation injection given into her left knee on 07/14/2023. She got very good relief from that injection. Allergies Penicillins Allergy (Verified 03/01/24 13:16) Hallucinations azithromycin [From Zithromax Z-Butch] Adverse Reaction (Verified 03/01/24 13:16) Stomach Upset cephalexin [From Keflex] Adverse Reaction (Verified 03/01/24 13:16) Stomach Upset azthromycin Adverse Reaction (Uncoded 03/01/24 13:16) Stomach Upset Medication List - Last Reconciled 03/01/24 by Williams Lam MD acetaminophen (Tylenol Extra Strength) 500 mg PO Q6H PRN ascorbic acid (vitamin C) 500 mg PO DAILY bupropion HCl SR 150 mg PO DAILY calcium citrate 500 mg PO DAILY cetirizine (Zyrtec) 10 mg PO DAILY PRN chlorhexidine gluconate 0.12% PO fluticasone propionate 50 mcg/actuation sprays intranasal multivitamin 1 tab PO DAILY diuvd-6w-tjk-epa-fish oil 350-600 mg (Fish Oil) 1,400 mg trospium 20 mg PO BID venlafaxine ER 150 mg PO DAILY vibegron (Gemtesa) 75 mg PO DAILY PFSH Surgical History H/O arthroscopy of right knee Hx of arthroscopy of left knee Status post total right knee replacement Physical Exam Const Other: Well-nourished well-developed very friendly female awake alert and oriented x3 in no acute distress Extrem Other: Bilateral lower extremity examination shows good capillary refill, no skin lesions noted, normal sensation light touch Left knee examination shows a minimal effusion, palpable crepitus with range of motion, pain with range of motion, range of motion from -3 degrees to 115 degrees, no instability Results Reviewed Results Reviewed: X-rays of the patient's left knee show joint space narrowing, subchondral sclerosis, no acute bony abnormalities Assessment & Plan Assessment & Plan (1) Left knee pain: Code(s): M25.562 - Pain in left knee (2) Osteoarthritis of left knee: Code(s): M17.12 - Unilateral primary osteoarthritis, left knee Category: Medical Plan Ms. Yancey presents with progressively worsening left knee pain due to osteoarthritis. I had a lengthy discussion with the patient regarding the treatment options. She wishes to hold off on left total knee replacement surgery for as long as possible. I agree with this plan. She has failed the last 3 months of conservative treatment. She has not gotten good relief from cortisone injections in the past. Thus, I will see whether or not the patient's insurance company will cover a another Durolane viscosupplementation injection for her left knee. She did have a Durolane injection given into her left knee on 07/14/2023. She got very good relief from that injection. I will see her back once the injection is available. Feel free to call me at any time should questions regarding her orthopedic management arise. I spent 22 minutes in reviewing the patient's records and imaging studies, se eing the patient and documenting in the medical record. Coding Level of Care Code Est Pt Level 3 (53233) Diagnoses Left knee pain M25.562 Osteoarthritis of left knee M17.12
== END 2024-03-01 13:54 | disposition home or self-care (01) ==
PROVIDERS: PCP Internal Medicine; Visit Provider Orthopaedic Surgery
DX: M17.12 Unilateral primary osteoarthritis, left knee (principal)
CPT/HCPCS: 99213

== ENCOUNTER → 2024-03-01 13:09 | Outpatient (BNVA) | payer MEDICARE, SELFPAY | PROVIDERS: PCP Internal Medicine; Visit Provider Orthopaedic Surgery | DX: M25.562 Pain in left knee (principal); M17.12 Unilateral primary osteoarthritis, left knee | CPT/HCPCS: 99212 ==

== ENCOUNTER 2024-03-02 07:03 | Outpatient (REF) | payer MEDICARE, SELFPAY | END 2024-03-02 07:04 | disposition home or self-care (01) | LOC: HO.HOSX 07:03 | PROVIDERS: Visit Provider Orthopaedic Surgery | DX: Z13.89 Encounter for screening for other disorder (principal) ==

== ENCOUNTER 2024-03-02 11:59 | Outpatient (REF) | payer MEDICARE, SELFPAY ==
--- NOTE | ~2024-03-02 | XR_ITS ---
EXAMINATION: XR KNEE, LEFT CLINICAL INFORMATION: Left knee osteoarthritis. COMPARISON: None available. TECHNIQUE: Four views of the left knee. FINDINGS: Examination demonstrates moderate to severe osteoarthritis of the left knee predominantly involving the medial compartment, with joint space narrowing, sclerosis, and osteophyte formation. Question trace suprapatellar fluid. No fracture or dislocation is identified. No lytic or sclerotic bony lesion is seen. Bony mineralization appears preserved. The soft tissues appear unremarkable. XR/XR knee LT 3V IMPRESSION: Findings as above. Electronically signed by: Mickey Shannon MD 03/30/2024 05:38 PM EDT
== END 2024-03-02 12:00 | disposition home or self-care (01) ==
LOC: HO.XRAY 11:59
PROVIDERS: PCP Internal Medicine; Visit Provider Orthopaedic Surgery
DX: M17.12 Unilateral primary osteoarthritis, left knee (principal)
CPT/HCPCS: 73562

== ENCOUNTER 2024-03-15 10:17 | Outpatient (AMB) | payer MEDICARE, SELFPAY ==
--- NOTE | 2024-03-15 10:18 | MHC.OFFVIS ---
Intake Visit Reasons: Left Knee Durolane Injection Intake Note: Pema is a 74 year old female who presents with complaints of progressively worsening left knee pain. The patient describes her pain as sharp in nature. Her pain has gotten worse over the last few months in spite of continued non operative treatments. She has had cortisone injections past which gave her minimal relief. She has also had a Durolane injection which gave her good relief. She wishes to hold off on surgery for as long as possible. She has taken Tylenol and anti-inflammatory medicines which gave her minimal relief. Allergies Penicillins Allergy (Verified 03/15/24 10:18) Hallucinations azithromycin [From Zithromax Z-Butch] Adverse Reaction (Verified 03/15/24 10:18) Stomach Upset cephalexin [From Keflex] Adverse Reaction (Verified 03/15/24 10:18) Stomach Upset azthromycin Adverse Reaction (Uncoded 03/15/24 10:18) Stomach Upset Medication List - Last Reconciled 03/16/24 by Williams Lam MD acetaminophen (Tylenol Extra Strength) 500 mg PO Q6H PRN ascorbic acid (vitamin C) 500 mg PO DAILY bupropion HCl SR 150 mg PO DAILY calcium citrate 500 mg PO DAILY cetirizine (Zyrtec) 10 mg PO DAILY PRN chlorhexidine gluconate 0.12% PO fluticasone propionate 50 mcg/actuation sprays intranasal multivitamin 1 tab PO DAILY fgksc-6v-vuj-epa-fish oil 350-600 mg (Fish Oil) 1,400 mg trospium 20 mg PO BID venlafaxine ER 150 mg PO DAILY vibegron (Gemtesa) 75 mg PO DAILY [facility] Surgical History H/O arthroscopy of right knee Hx of arthroscopy of left knee Status post total right knee replacement Physical Exam Const Other: Well-nourished well-developed very friendly female awake alert and oriented x3 in no acute distress Extrem Other: Bilateral lower extremity examination shows good capillary refill, no skin lesions noted, normal sensation light touch Left knee examination shows a minimal effusion, palpable crepitus with range of motion, pain with range of motion, range of motion from -3 degrees to 115 degrees, no instability Office Procedures Joint Injection/Aspiration Joint Injection/Aspiration Primary Site: left knee Prep: site was prepped using aseptic technique Injected: 60 mg of (Durolane viscosupplementation) and 1% plain lidocaine Procedure: The patient tolerated the procedure well Coding - Large joint Procedure code (CPT) selection complete Results Reviewed Results Reviewed: X-rays of the patient's left knee show joint space narrowing, subchondral sclerosis, no acute bony abnormalities Assessment & Plan Assessment & Plan (1) Osteoarthritis of left knee: Code(s): M17.12 - Unilateral primary osteoarthritis, left knee Category: Medical Plan Ms. Yancey presents with left knee pain due to osteoarthritis. I had a lengthy discussion with the patient regarding the treatment options. The risks and benefits of a left knee Durolane viscosupplementation injection were discussed at length with the patient. The patient wished to proceed. She tolerated the injection well. She will continue with her home exercise program. She will follow up with me on an as-needed basis should her symptoms not plateau at an unacceptable level over the next few months. Feel free to call me at any time should questions regarding her orthopedic management arise. I spent 21 minutes in reviewing the patient's records and imaging studies, seeing the patient and documenting in the medical record. Orders: Orders AMB Joint Injection/Aspiration 03/15/24 M17.12 - Unilateral primary osteoarthritis, left knee Coding Level of Care Code Est Pt Level 3 (38115) Diagnoses Osteoarthritis of left knee M17.12 CPT Codes Coding - Large joint: 58581 - Large joint ([id number])
== END 2024-03-15 10:49 | disposition home or self-care (01) ==
PROVIDERS: PCP Internal Medicine; Visit Provider Orthopaedic Surgery
DX: M17.12 Unilateral primary osteoarthritis, left knee (principal)
CPT/HCPCS: 20610

== ENCOUNTER → 2024-03-15 10:17 | Outpatient (BNVA) | payer MEDICARE, SELFPAY | PROVIDERS: PCP Internal Medicine; Visit Provider Orthopaedic Surgery | DX: M17.12 Unilateral primary osteoarthritis, left knee (principal) | CPT/HCPCS: 20610; J7318 ==

== ENCOUNTER 2024-06-19 11:18 | Outpatient (AMB) | payer MEDICARE, SELFPAY ==
--- NOTE | 2024-06-19 11:19 | MHC.OFFVIS ---
Vital Signs 06/19/24 11:22 Height 4 ft 7.5 in Weight 142 lb BMI 32.4 Intake Visit Reasons: OV: Left knee OA Intake Note: Pema is a 74 year old female who presents with complaints of left knee pain. She has had cortisone injections in the past. The most recent injection gave her no relief. She has also had viscosupplementation injections which gave her very good relief. She did undergo right total knee replacement surgery several years ago. She denies any pain in her right knee. She wishes to hold off on left total knee replacement surgery for as long as possible. She has tried Tylenol and anti-inflammatory medicines which gave her minimal relief. She has failed the last 3 months of conservative treatment which include a home physical therapy program, Tylenol, anti-inflammatory medicines and topical creams. She wishes to hold off on left total knee replacement surgery for as long as possible. At this point her left knee pain is interfering with her activities of daily living and her ability to sleep well through the night. Allergies Penicillins Allergy (Verified 06/19/24 11:22) Hallucinations azithromycin [From Zithromax Z-Butch] Adverse Reaction (Verified 06/19/24 11:22) Stomach Upset cephalexin [From Keflex] Adverse Reaction (Verified 06/19/24 11:22) Stomach Upset azthromycin Adverse Reaction (Uncoded 06/19/24 11:22) Stomach Upset Medication List - Last Reconciled 06/19/24 by Williams Lam MD acetaminophen (Tylenol Extra Strength) 500 mg PO Q6H PRN ascorbic acid (vitamin C) 500 mg PO DAILY bupropion HCl SR 150 mg PO DAILY calcium citrate 500 mg PO DAILY cetirizine (Zyrtec) 10 mg PO DAILY PRN chlorhexidine gluconate 0.12% PO cyclosporine 0.05% (Restasis MultiDose) 1 drp ophthalmic (eye) Q12H fluticasone propionate 50 mcg/actuation sprays intranasal multivitamin 1 tab PO DAILY repmd-8p-wkp-epa-fish oil 350-600 mg (Fish Oil) 1,400 mg trospium 20 mg PO BID venlafaxine ER 150 mg PO DAILY vibegron (Gemtesa) 75 mg PO DAILY PFSH Surgical History H/O arthroscopy of right knee Hx of arthroscopy of left knee Status post total right knee replacement Social History (Updated 06/19/24 @ 11:23 by SALEEM Carrizales) Alcohol intake: never Patient Tobacco Use Status: Never used Tobacco Current occupational status: retired Physical Exam Vital Signs: BMI result Body Mass Index 32.4 Const Other: Well-nourished well-developed very friendly female awake alert and oriented x3 in no acute distress Extrem Other: Bilateral lower extremity examination shows good capillary refill, no skin lesions noted, normal sensation light touch Left knee examination shows a minimal effusion, palpable crepitus with range of motion, pain with range of motion, range of motion from -3 degrees to 115 degrees, no instability Results Reviewed Results Reviewed: X-rays of the patient's left knee taken previously show joint space narrowing, subchondral sclerosis, no acute bony abnormalities Assessment & Plan Assessment & Plan (1) Osteoarthritis of left knee: Code(s): M17.12 - Unilateral primary osteoarthritis, left knee Category: Medical Plan Ms. Yancey presents with left knee pain due to osteoarthritis. I had a lengthy discussion with the patient regarding the treatment options. She wishes to hold off on left total knee replacement surgery for as long as possible. I agree with this plan. She has not gotten good relief from cortisone injections in the past. Thus, I will see whether or not her insurance company will cover a another viscosupplementation injection. I will see her back once the injection is available. Feel free to call me at any time should questions regarding her orthopedic management arise. I spent 20 minutes in reviewing the patient's records and imaging studies, seeing the patient and documenting in the medical record. Coding Level of Care Code Est Pt Level 3 (97941) Complex EM visit Add On G2211 Diagnoses Osteoarthritis of left knee M17.12
[2024-06-19 11:22] VITALS: BMI 32.4
== END 2024-06-19 11:40 | disposition home or self-care (01) ==
PROVIDERS: PCP Internal Medicine; Visit Provider Orthopaedic Surgery
DX: M17.12 Unilateral primary osteoarthritis, left knee (principal)
CPT/HCPCS: 99213; G2211

== ENCOUNTER → 2024-06-19 11:18 | Outpatient (BNVA) | payer MEDICARE, SELFPAY | PROVIDERS: PCP Internal Medicine; Visit Provider Orthopaedic Surgery | DX: M17.12 Unilateral primary osteoarthritis, left knee (principal); Z96.651 Presence of right artificial knee joint | CPT/HCPCS: 99212 ==

== ENCOUNTER 2024-07-31 09:37 | Outpatient (REF) | payer MEDICARE, SELFPAY ==
--- NOTE | ~2024-07-31 | XR_ITS ---
EXAMINATION: XR KNEE 3 VIEWS LEFT HISTORY: M25.562 - Pain in left knee COMPARISON: Comparison is made with the prior examination dated 03/02/2024. FINDINGS: Three views of the left knee are submitted. Osseous mineralization is normal. There is a linear lucency noted through an osteophyte off the superior pole of the patella which is new from the prior study and could represent a fracture. There is severe osteoarthritis of the medial compartment with joint space narrowing and osteophyte formation. More moderate changes are noted involving the lateral and patellofemoral compartments. The soft tissues are unremarkable. There is no joint effusion. XR/XR knee LT 3V IMPRESSION: 1. Possible fracture of an osteophyte extending off the superior aspect of the patella. Clinical correlation is recommended. 2. Severe osteoarthritis as described. Electronically signed by: Jassi Jay MD 08/02/2024 01:35 PM ROSE MARY
--- OUTSIDE RECORDS SUMMARY | 2024-08-01 09:58 | XMS_ITS | Data Portability ---
Author Organization [place] [facility] Mandy Shoemaker [facility] [place] Address [address] [place] [address] Care Team Providers Care Java Mobile Developer Name Role Phone SEBASTIÁN BATISTA Primary Care Provider Assessment Encounter Date Assessment Date Assessment LastModified by Organization Details LastModified Time 12/11/2022 12/11/2022 Pleasant 72-year-old female with left knee arthralgia due to osteoarthritis. She is attempting to stave off total joint replacement surgery as long as feasibly possible. She gave verbal consent for Synvisc 1 injection of the left knee joint at today's visit. The procedure was then carried out. She tolerated the procedure well. Aftercare instructions were discussed in detail. I would like to reevaluate her in 3 months time for repeat clinical exam. Should her symptoms not improve or worsen she should contact my office. She agrees with the above-noted plan. Documenting Provider: Carter Barbosa MD [email or web address] Not available 12/11/2022 14:38:25 05/03/2023 05/03/2023 73-year-old female with 1 month history of atraumatic right shoulder pain likely multifactorial in nature. Her MRI revealed tearing of the supraspinatus and X-rays today do demonstrate mild degenerative changes. Likely an element of subacromial bursitis/impingem ent syndrome. Her history and physical exam are overall reassuring and she is minimally symptomatic. I reviewed my findings and treatment options were discussed with the patient. We discussed that tears of the rotator cuff do not heal and may progress over time. With that being said, not all rotator cuff tears are symptomatic. We talked at length about treatment options including observation and activity modification, home exercise program/physical therapy, injection therapy, medication therapy and surgical intervention. Given her mild presentation of symptoms I suggest to be begin with conservative management. She was given a prescription for formal physical therapy. Advised okay to return to her chair yoga class at the gym, letting symptoms be her guide and modifying activities as appropriate. Icing protocol reviewed. She can continue to use anti-inflammatori es and/or Tylenol for relief as needed with appropriate over the counter dosing and GI precautions. Questions invited and answered. Patient verbalizes understanding and agreement with plan. Not available 05/06/2023 13:13:32 Plan of Treatment Reminders Order Date Submit Date Provider Last Modified By Organization Details Last Modified Time Details Appointments None recorded. Lab None recorded. Referral None recorded. Procedures None recorded. Surgeries None recorded. Imaging XR, shoulder, 2 or more view 023 [email or web address] 3 [facility], [address], [address], [place], [address], 16:11:58 Medication Orders Synvisc-O ne 48 mg/6 mL intra-art icular syringe 023 [email or web address] [id number], [address] [place], [address], 14:52:52 Patient TargetsNo targets recorded. Patient Instructions Encounter Date Encounter Id Patient Instructions Last Modified By Organization Details Last Modified Time 12/11/2022 [id number] You have been pr ovided with a viscosupplementation injection in order to reduce the pain that you are experiencing from your arthritis. The injection consists of a lubricating injection called hyaluronic acid. Please note that not everyone will have a lasting response following the injection. PATIENT INSTRUCTIONS I recommend icing the affected area for 20 minutes 3-4 times per day. It is recommended that you refrain from any high level activities using the joint or limb that was injected for approximately 24-48 hours. Normal day-to-day activities are generally not a problem. POSSIBLE SIDE EFFECTS Individuals with dark complexions may experience some skin discoloration locally at the site of the injection. There is the possibility of an increase in discomfort within 48 hours following the injection. This is called a ? flare? . To help minimize the chances of this, please see the post-injection instructions above. There is a less than 1% chance of an infection. If you notice any signs of infection (redness, warmth, drainage, fever greater than 100 degrees) please call our office or contact us through the portal ROCIO. [email or web address] Not available 12/11/2022 14:08:34 05/03/2023 [id number] views of the r ight shoulder were obtained today 05/03/2023 in the [place] office. Mild glenohumeral joint space narrowing. Mild degenerative changes of the glenoid as well as the AC joint. On the oblique view there is a small projection off the lateral edge of the acromion, osteophyte vs os acromiale. Type I acromion. No acute fracture or dislocation. Findings: Mild degenerative changes. Interpreted by: Nata Aquino PA-C Not available 05/06/2023 13:10:39 Reason for Referral None Reported. Problems Name Problem SNOMED Code Status Onset Date Resolution Date Notes Provider Name and Address Organization Details Recorded Time Rupture of rotator cuff of right shoulder [id number] 03 Active 2022 NATA AQUINO PA-C [address] [facility],[address], [place], [address], [place] [facility] 12:57:56 Problem Notes None recorded. Procedures Surgical History Date Name Laterality Status Provider Name and Address Organization Details Recorded Time 12/11/2022 Synvisc-On e Knee Inj completed ERYN BAEZ PA-C [address] [facility],[address], [place], [address], [place] [facility], [facility] 12/11/2022 14:37:46 Imaging Results None recorded. Procedure Notes None recorded. Medical Equipment None Reported. Medications Name Sig Start Date Stop Date Status Note LastModified by Organization Details LastModified Time bupropion HCl SR 150 mg tablet,12 hr sustained-r elease 05/03 completed Not Available Not Available Not Available nystatin 100,000 unit/mL oral suspension SWISH AND SWALLOW 5ML 4 TIMES A DAY FOR 7 DAYS KEEP IN MOUTH LONG POSSIBLE 05/03 completed Not Available Not Available Not Available doxycycline hyclate 100 mg capsule TAKE 1 CAPSULE BY MOUTH TWICE A DAY WITH MEALS 05/03 completed Not Available Not Available Not Available azithromyci n 250 mg tablet TAKE 2 TABLETS BY MOUTH TODAY, THEN TAKE 1 TABLET DAILY FOR 4 DAYS 05/03 completed Not Available Not Available Not Available clonazepam 1 mg tablet active Not Available Not Available Not Available vancomycin 125 mg capsule TAKE 1 CAPSULE BY MOUTH TWICE A DAY WITH FOOD active Not Available Not Available No t Available ketorolac 0.5 % eye drops INSTILL 1 DROP INTO AFFECTED EYE 3 TIMES A DAY DIRECTED START 2 DAYS PRIOR TO SURGERY. TAPER active Not Available Not Available No t Available cephalexin 500 mg capsule TAKE 1 CAPSULE BY MOUTH 4 TIMES A DAY FOR 5 DAYS active Not Available Not Available No t Available Effexor XR 150 mg capsule,ext ended release Take 1 capsule every day by oral route. active Not Available Not Available No t Available bisacodyl 5 mg tablet,andrew yed release TAKE 4 TABLETS ONCE FOR 1 DAY NEEDED 05/03 completed Not Available Not Available Not Available ibuprofen 600 mg tablet TAKE 1 TABLET ONE HOUR PRIOR TO DENTAL APPOINTME NT AND THEN 1 TABLET EVERY SIX HOURS FOR PAIN. 05/03 completed Not Available Not Available Not Available fluticasone propionate 50 mcg/actuati on nasal spray,suspe nsion USE 2 SPRAYS IN EACH NOSTRIL ONCE A DAY active Not Available Not Available No t Available chlorhexidi ne gluconate 0.12 % mouthwash RINSE MOUTH WITH 15ML (1 CAPFUL) FOR 30 SECONDS IN MORNING AND EVENING AFTER BRUSHING, THEN SPIT active Not Available Not Available No t Available clonazepam active Not Available Not Av ailable Not Available Synvisc-One 48 mg/6 mL intra-artic ular syringe Take 48 mg by intraarti cular route. 2022 active Not Available Not Available Not Avai lable GaviLyte-G 236 gram-22.74 gram-6.74 gram-5.86 gram oral solution 4000 ML ORALLY PT HAS INSTRUCTO NS 2 DAYS active Not Available Not Available No t Available Myrbetriq 25 mg tablet,exte nded release 05/03 completed Not Available Not Available Not Available Readi-Cat [...] SNOMED-CT Code Diagnosis ICD10 Code Diagnosis Note [id number] [facility] [address] [facility] [address] [place] [address] 12/11/2022 14:04:37 12/11/2022 14:29:36 Osteoarthritis of left knee joint [id number] 88941 M17.[id number] [facility] [address] [facility] [address] [place] [address] 05/03/2023 13:26:58 05/03/2023 14:23:33 Pain of right shoulder joint [id number] 7243291 M25.511 Rupture of rotator cuff of right shoulder [id number] 9989719 M75.101 Health Concerns Section Related Observation LastModified by Organization Detai ls LastModified Time None Recorded Concern Status LastModified by Organization Details LastModified Time None Recorded Advance Directives Directive None Recorded Payers Encounter Date Sequence Insurance Name Policy Number Policy Mckinnon Covered Member ID Mckinnon Member ID Guarantor Name 12/11/2022 2 [place] [id number] Pema Yancey [id number] Pema Yancey 12/11/2022 1 [place] Pema Yancey [id number] Pemaaddison Yancey 05/03/2023 2 [place] [id number] Pemaaddison Yancey [id number] Pema Black 05/03/2023 1 [place] Pemaaddison Yancey [id number] Pema Fanrock Notes Date Note Type Note Provider Name and Address Organization Details Recorded Time 12/11/2022 text/html This is a pleasa nt 72-year-old female here for Synvisc 1 injection of the left knee joint due to osteoarthritis. She states she has had good relief in the past. She is attempting to stave off total knee replacement surgery as long as possible. She denies any fevers chills flulike symptoms. She does have a history of right knee replacement was performed by Dr. Lam in May 2017 without any complaint. She takes her antibiotic prophylaxis and does her stretching exercises. ERYN BAEZ PA-C [address] [facility],[address] [address], [place], [address], [place] [facility] 12/11/2022 14:38:56 05/03/2023 text/html Pleasant 73-year-old female presents to the office today for evaluation of right shoulder pain. She reports the pain gradually onset about 1 month ago. No trauma or injury recalled. She localizes the pain to the top and side of her shoulder, describes it as aching and localized. Denies radiation of pain toward the elbow or forearm. Denies numbness or tingling. Denies sensations of instability. Endorses feelings of weakness/easy fatigue however she feels that overall she is actually improving. She has been taking 600 mg of ibuprofen as needed with good relief, otherwise has not tried much in the way of treatment. She was evaluated by her PCP who was concerned about a rotator cuff tear and ordered an MRI. Since her MRI she has stopped doing her yoga exercise class as she wanted to be cautious until she was formally evaluated. Denies much difficulty with ADLs or desired activities. Denies neck pain. Denies significant nighttime pain. No significant history regarding the right shoulder.No formal medical history on file, however reported medical history includes anxiety/depression , cataracts, C. difficile, overactive bladder and sleep apnea. She is retired. Never smoker. NATA AQUINO PA-C [address] [facility] [address], [place], [address], [place] [facility] 05/06/2023 13:13:58 OBGyn Episode No OBEpisode recorded.
== END 2024-07-31 09:38 | disposition home or self-care (01) ==
LOC: HO.HOSX 09:37
PROVIDERS: Visit Provider Orthopaedic Surgery
DX: M25.562 Pain in left knee (principal); M17.12 Unilateral primary osteoarthritis, left knee
CPT/HCPCS: 73562; 99212

== ENCOUNTER 2024-07-31 10:02 | Outpatient (AMB) | payer MEDICARE, SELFPAY ==
--- NOTE | 2024-07-31 10:04 | A.OFFVIS_ITS ---
Vital Signs 07/31/24 10:05 Height 4 ft 7.5 in Weight 142 lb BMI 32.4 Intake Visit Reasons: OV-Left knee pain DOI 06/28/24 Intake Note: Dc is a 74 year old female who presents today for evaluation of her left knee after falling on 06/28/24. The patient states that she was walking down stairs when she ?missed the last step?. She fell onto her left knee. The patie nt does have a history of left knee degenerative joint disease. She is scheduled to have a viscosupplementation injection given into her left knee next month. She wishes to hold off on left total knee replacement surgery if at all possible. She has tried Tylenol which gives her mild relief. She has also done physical therapy exercises which aggravated her pain. The patient states that she does have a knee brace at home. She was not wearing the brace when she fell. Allergies Penicillins Allergy (Verified 07/31/24 10:30) Hallucinations azithromycin [From Zithromax Z-Butch] Adverse Reaction (Verified 07/31/24 10:30) Stomach Upset cephalexin [From Keflex] Adverse Reaction (Verified 07/31/24 10:30) Stomach Upset azthromycin Adverse Reaction (Uncoded 07/31/24 10:30) Stomach Upset Medication List - Last Reviewed 07/31/24 by ABY Avila acetaminophen (Tylenol Extra Strength) 500 mg PO Q6H PRN ascorbic acid (vitamin C) 500 mg PO DAILY bupropion HCl SR 150 mg PO DAILY calcium citrate 500 mg PO DAILY cetirizine (Zyrtec) 10 mg PO DAILY PRN clonazepam 1 mg orally QAM and 2 mg QHS; cyclosporine 0.05% (Restasis MultiDose) 1 drp ophthalmic (eye) Q12H fluticasone propionate 50 mcg/actuation sprays intranasal multivitamin 1 tab PO DAILY ivnbn-8f-dbr-epa-fish oil 350-600 mg (Fish Oil) 1,400 mg trospium 20 mg PO BID venlafaxine ER 150 mg PO DAILY vibegron (Gemtesa) 75 mg PO DAILY PFSH Surgical History H/O arthroscopy of right knee Hx of arthroscopy of left knee Status post total right knee replacement Social History (Updated 06/19/24 @ 11:23 by SALEEM Carrizales) Alcohol intake: never Patient Tobacco Use Status: Never used Tobacco Current occupational status: retired Physical Exam Vital Signs: BMI result Body Mass Index 32.4 Const Other: Well-nourished well-developed very friendly female awake alert and oriented x3 in no acute distress Extrem Other: Bilateral lower extremity examination shows good capillary refill, no skin lesions noted, normal sensation light touch Left knee examination shows a minimal effusion, palpable crepitus with range of motion, range of motion from -3 degrees to 120 degrees, no instability, no focal tenderness Results Reviewed Results Reviewed: X-rays of the patient's left knee taken today show severe joint space narrowing most significant in the medial compartment, subchondral sclerosis, osteophyte formation Assessment & Plan Assessment & Plan (1) Osteoarthritis of left knee: Code(s): M17.12 - Unilateral primary osteoarthritis, left knee Category: Medical Plan Ms. Yancey presents with progressively worsening left knee pain due to osteoarthritis. I had a lengthy discussion with the patient regarding the treatment options. The patient wishes to hold off on total knee replacement surgery for as long as possible. I agree with this plan. She will follow up next month as scheduled for her Durolane viscosupplementation injection. She will continue with her activity modifications in the meantime. Feel free to call me at any time should questions regarding her orthopedic management arise. I spent 20 minutes in reviewing the patient's records and imaging studies, seeing the patient and documenting in the medical record. Coding Level of Care Code Est Pt Level 3 (81424) Complex EM visit Add On G2211 Diagnoses Osteoarthritis of left knee M17.12
[2024-07-31 10:05] VITALS: BMI 32.4
--- OUTSIDE RECORDS SUMMARY | 2024-07-31 10:58 | XMS_ITS ---
Author Name [facility] Organization Unknown History of Medication Use Medication Directions Dispensed Refills Start Date End Date Stat GaviLyte-G 236 gram-22.74 gram-6.74 gram-5.86 gram oral solution 4000 ML ORALLY PT HAS INSTRUCTONS 2 DAYS 12/13/2022 active bisacodyl 5 mg tablet,delayed release TAKE 4 TABLETS ONCE FOR 1 DAY NEEDED 12/13/2022 complete d clonazepam 1 mg tablet 12/13/2022 active nystatin 100,000 unit/mL oral suspension SWISH AND SWALLOW 5ML 4 TIMES A DAY FOR 7 DAYS KEEP IN MOUTH LONG POSSIBLE 12/13/2022 completed clonazepam 05/08/2023 active vancomycin 125 mg capsule TAKE 1 CAPSULE BY MOUTH TWICE A DAY WITH FOOD 12/13/2022 active Gemtesa 75 mg tablet 12/13/2022 active nystatin 100,000 unit/mL oral suspension SWISH AND SWALLOW 5ML 4 TIMES A DAY FOR 7 DAYS KEEP IN MOUTH LONG POSSIBLE 12/13/2022 completed clonazepam 05/08/2023 active Readi-Cat 2 2 % (w/v) oral suspension DRINK DIRECTED 12/13/2022 active fluticasone propionate 50 mcg/actuation nasal spray,suspension USE 2 SPRAYS IN EACH NOSTRIL ONCE A DAY 12/13/2022 active venlafaxine ER 150 mg capsule,extended release 24 hr 12/13/2022 active doxycycline hyclate 100 mg capsule TAKE 1 CAPSULE BY MOUTH TWICE A DAY WITH MEALS 05/08/2023 completed azithromycin 250 mg tablet TAKE 2 TABLETS BY MOUTH TODAY, THEN TAKE 1 TABLET DAILY FOR 4 DAYS 12/13/2022 completed chlorhexidine gluconate 0.12 % mouthwash RINSE MOUTH WITH 15ML (1 CAPFUL) FOR 30 SECONDS IN MORNING AND EVENING AFTER BRUSHING, THEN SPIT 05/08/2023 active bupropion HCl SR 150 mg tablet,12 hr sustained-release 12/13/2022 complet ed Myrbetriq 25 mg tablet,extended release 12/13/2022 completed cephalexin 500 mg capsule TAKE 1 CAPSULE BY MOUTH 4 TIMES A DAY FOR 5 DAYS 12/13/2022 active Synvisc-One 48 mg/6 mL intra-articular syringe Take 48 mg by intraarticular route. 12/13/2022 active ibuprofen 600 mg tablet TAKE 1 TABLET ONE HOUR PRIOR TO DENTAL APPOINTMENT AND THEN 1 TABLET EVERY SIX HOURS FOR PAIN. 05/08/2023 completed Effexor XR 150 mg capsule,extended release Take 1 capsule every day by oral route. 05/08/2023 active Problems Problem Status Onset Date Problem Type Date of Resoluti on Source Tear of right rotator cuff active 2023-05-06 ProblemAct ENS_AONECT
--- OUTSIDE RECORDS SUMMARY | 2024-07-31 10:58 | XMS_ITS | Data Portability ---
Author Organization [facility], [facility], [facility] [place] Address [address] [place] [address] Assessment No assessment recorded. Plan of Treatment Reminders Order Date Submit Date Provider Last Modified By Organization Details Last Modified Time Details Appointments None record ed. Lab None record ed. Referral None record ed. Procedures None record ed. Surgeries None record ed. Imaging None record ed. Medication Orders None record ed. Patient TargetsNo targets recorded. Patient InstructionsNo instructions recorded. Reason for Referral None Reported. Results Created Date Observation Date Name Description Value Unit Range Abnormal Flag Note LastModifiedBy Organization Detail LastModifiedTime Result Notes None recorded. Procedures Surgical History Date Name Laterality Status Provider Name and Address Organization Details Recorded Time 3 Ck - Colonoscopy completed Enrike Stover MD [address] [place] [address], [id number] 09/24/2022 10:37:19 Imaging Results None recorded. Procedure Notes None recorded. Medical Equipment None Reported. Allergies Allergen ID Allergen Name Allergen Category Reaction Reaction Severity Criticality Documentation Date Start Date Code Code System Note Provider Name and Address Organization Details Recorded Time 739172 penicilli n G Not available other Not available Not available 09/23/2022 7980 RxNorm gi issue s JONA Temple, [facility] 3 14:25:37 [id number] azithromy lulu medicatio n other Not available Not available 09/23/2022 59469 RxNorm gi issue s JONA Temple, [facility] 3 14:25:24 [id number] amoxicill in medicatio n Not available Not available Not available 09/23/2022 723 RxNorm gi issue s JONA Temple, [facility] 3 14:26:02 [id number] erythromy lulu medicatio n Not available Not available Not available 09/23/2022 4053 RxNorm gi issue s Mildred Beltran RN [facility] 3 14:26:19 Medications Name Sig Start Date Stop Date Status Note LastModified by Organization Details LastModified Time methocarbamo l 500 mg tablet TAKE 2 TABLETS BY MOUTH 4 TIMES DAILY FOR 5 DAYS active Not Available Not Available N ot Available bupropion HCl SR 150 mg tablet,12 hr sustained-re lease active Not Available Not Available Not Available nystatin 100,000 unit/mL oral suspension SWISH AND SWALLOW 5ML 4 TIMES A DAY FOR 7 DAYS KEEP IN MOUTH LONG POSSIBLE active Not Available Not Available No t Available clonidine HCl 0.1 mg tablet active Not Available Not Available Not Available azithromycin 250 mg tablet TAKE 2 TABLETS BY MOUTH TODAY, THEN TAKE 1 TABLET DAILY FOR 4 DAYS active Not Available Not Available No t Available tolterodine ER 4 mg capsule,exte nded release 24 hr active Not Available Not Available Not Available clonazepam 0.5 mg tablet active Not Available Not Available Not Available clonazepam 1 mg tablet active Not Available Not Available No t Available venlafaxine ER 150 mg capsule,exte nded release 24 hr active Not Available Not Available Not Available prochlorpera zine maleate 10 mg tablet active Not Available Not Available Not Available TobraDex 0.3 %-0.1 % eye ointment APPLY 1/2 INCH TO RIGHT UPPER EYELID 3 TIMES A DAY FOR 5 DAYS active Not Available Not Available N ot Available vancomycin 125 mg capsule TAKE 1 CAPSULE BY MOUTH 4 TIMES A DAY FOR 14 DAYS active Not Available Not Available Not Available oxycodone-ac etaminophen 5 mg-325 mg tablet active Not Available Not Available Not Available doxycycline monohydrate 100 mg capsule active Not Available Not Available Not Available cephalexin 500 mg capsule TAKE 1 CAPSULE BY MOUTH 4 TIMES A DAY FOR 5 DAYS active Not Available Not Available N ot Available bisacodyl 5 mg tablet,delay ed release TAKE 4 TABLETS ONCE FOR 1 DAY NEEDED active Not Available Not Available No t Available fluticasone propionate 50 mcg/actuatio n nasal spray,suspen last active Not Available Not Available Not Available GaviLyte-G 236 gram-22.74 gram-6.74 gram-5.86 gram oral solution 4000 ML ORALLY PT HAS INSTRUCTONS 2 DAYS active Not Available Not Available No t Available Vagifem 10 mcg vaginal tablet active Not Available Not Available Not Available Myrbetriq 25 mg tablet,exten ded release active Not Available Not Available Not Available Readi-Cat 2 2 % (w/v) oral suspension DRINK DIRECTED active Not Available Not Available No t Available Gemtesa 75 mg tablet active Not Available Not Available No t Available Vitals None Recorded Social History None recorded. Functional Status None recorded. Mental Status None recorded. Family History Nothing Reported. Medical History No medical history recorded. Gynecological HistoryNo gynecological history recorded. Obstetrics History GPAL:G 0 P 0 0 0 0 Past Encounters Encounter ID Performer Location Encounter Start Date Encounter Closed Date Diagnosis/Indication Diagnosis SNOMED-CT Code Diagnosis ICD10 Code Diagnosis Note [id number] Enrike Stover MD [facility], [address] [address] 07/08/2016 08:07:02 07/08/2016 14:39:26 [id number] Kenna Quintero RN Endoscopy , [address] [address] 09/24/2022 09:12:11 09/25/2022 11:07:42 Health Concerns Section Related Observation LastModified by Organization Detai ls LastModified Time None Recorded Concern Status LastModified by Organization Details LastModified Time None Recorded Advance Directives Directive None Recorded Payers Encounter Date Sequence Insurance Name Policy Number Policy Mckinnon Covered Member ID Mckinnon Member ID Guarantor Name 07/08/2016 1 [place] [employer] Pema Bc [id number] Pema Yancey 07/08/2016 2 [place] [id number] Pema Bc [id number] Pema Bc OBGyn Episode No OBEpisode recorded.
--- OUTSIDE RECORDS SUMMARY | 2024-07-31 10:58 | XMS_ITS | Data Portability ---
Author Organization [facility], , [facility] Address [address] [place] [address] Assessment No assessment recorded. Plan of Treatment [...] Name and Address Organization Details Recorded Time 6 Ck - Colonoscopy completed Enrike Stover MD [address] [place] [address], [phone] [facility] [place] 09:24:41 Imaging Results None recorded. Procedure Notes None recorded. Medical Equipment None Reported. Medications Name Sig Start Date Stop Date [...] SNOMED-CT Code Diagnosis ICD10 Code Diagnosis Note [id number] Enrike Stover MD [facility], [address] [address] 07/08/2016 08:07:02 07/08/2016 14:39:26 [id number] Kenna Quintero RN Endoscopy , [address] [address] 09/24/2022 09:12:11 09/25/2022 11:07:42 Health Concerns Section Related Observation LastModified by Organization Detai ls LastModified Time None Recorded Concern Status LastModified by Organization Details LastModified Time None Recorded Advance Directives Directive None Recorded Payers Encounter Date Sequence Insurance Name Policy Number Policy Mckinnon Covered Member ID Mckinnon Member ID Guarantor Name 07/08/2016 1 [place] [employer] [place] Pema Yancey [id number] Pema Yancey 07/08/2016 2 [place] [id number] Pema Yancey [id number] Pema Yancey OBGyn Episode No OBEpisode recorded.
== END 2024-07-31 10:52 | disposition home or self-care (01) ==
PROVIDERS: PCP Internal Medicine; Visit Provider Orthopaedic Surgery
DX: M17.12 Unilateral primary osteoarthritis, left knee (principal)
CPT/HCPCS: 99213; G2211

== ENCOUNTER 2024-09-18 10:56 | Outpatient (AMB) | payer MEDICARE, SELFPAY ==
--- NOTE | 2024-09-18 11:02 | A.OFFVIS_ITS ---
Vital Signs 09/18/24 11:13 Height 4 ft 7.5 in Weight 142 lb BMI 32.4 Intake Visit Reasons: Inj-Left Knee Durolane Injection Intake Note: Dc is a 74 year old female who presents with complaints of left knee pain. She describes her pain as sharp in nature. She did undergo right total knee replacement surgery in the past. She reports minimal discomfort in her ri ght knee. She wishes to hold off on left total knee replacement surgery for as long as possible. She has had cortisone injections which gave her minimal relief. She has done physical therapy exercises which aggravated her pain. She has also tried Tylenol and anti-inflammatory medicines which gave her minimal relief. Allergies Penicillins Allergy (Verified 09/18/24 11:13) Hallucinations azithromycin [From Zithromax Z-Butch] Adverse Reaction (Verified 09/18/24 11:13) Stomach Upset cephalexin [From Keflex] Adverse Reaction (Verified 09/18/24 11:13) Stomach Upset azthromycin Adverse Reaction (Uncoded 09/18/24 11:13) Stomach Upset Medication List - Last Reconciled 09/18/24 by Williams Lam MD acetaminophen (Tylenol Extra Strength) 500 mg PO Q6H PRN ascorbic acid (vitamin C) 500 mg PO DAILY bupropion HCl SR 150 mg PO DAILY calcium citrate 500 mg PO DAILY cetirizine (Zyrtec) 10 mg PO DAILY PRN clonazepam 1 mg orally QAM and 2 mg QHS; cyclosporine 0.05% (Restasis MultiDose) 1 drp ophthalmic (eye) Q12H fluticasone propionate 50 mcg/actuation sprays intranasal multivitamin 1 tab PO DAILY [id number]-fish oil 350-600 mg (Fish Oil) 1,400 mg trospium 20 mg PO BID venlafaxine ER 150 mg PO DAILY vibegron (Gemtesa) 75 mg PO DAILY PFSH Surgical History H/O arthroscopy of right knee Hx of arthroscopy of left knee Status post total right knee replacement Social History (Updated 06/19/24 @ 11:23 by SALEEM Carrizales) Alcohol intake: never Patient Tobacco Use Status: Never used Tobacco Current occupational status: retired Physical Exam Vital Signs: BMI result Body Mass Index 32.4 Const Other: Well-nourished well-developed very friendly female awake alert and oriented x3 in no acute distress Extrem Other: Bilateral lower extremity examination shows good capillary refill, no skin lesions noted, normal sensation light touch Left knee examination shows a minimal effusion, palpable crepitus with range of motion, pain with range of motion, no instability Office Procedures AMB Joint Injection/Aspiration Joint Injection/Aspiration Primary Site: left knee Prep: site was prepped using aseptic technique Injected: 60 mg of (Durolane viscosupplementation) and 1% plain lidocaine Procedure: The patient tolerated the procedure well Coding 82228 - Large joint Procedure code (CPT) selection complete Results Reviewed Results Reviewed: X-rays of the patient's left knee taken previously show joint space narrowing, subchondral sclerosis, no acute bony abnormalities Assessment & Plan Assessment & Plan (1) Osteoarthritis of left knee: Code(s): M17.12 - Unilateral primary osteoarthritis, left knee Category: Medical Plan Ms. Yancey presents with progressively worsening left knee pain due to osteoarthritis. The risks and benefits of a left knee Durolane viscosupplementation injection were discussed at length with the patient. The patient wished to proceed. She tolerated the injection well. She will continue with her home exercise program. She will contact me prior to her follow-up appointment in 3 months should any questions or concerns arise. Feel free to call me at any time should questions regarding her orthopedic management arise. I spent 21 minutes in reviewing the patient's records and imaging studies, seeing the patient and documenting in the medical record. Orders: Orders AMB Joint Injection/Aspiration 09/18/24 M17.12 - Unilateral primary osteoarthritis, left knee Coding Level of Care Code Est Pt Level 3 (79330) Complex EM visit Add On G2211 Diagnoses Osteoarthritis of left knee M17.12 CPT Codes Coding - 15312 Large joint: 23765 - Large joint ([id number])
[2024-09-18 11:13] VITALS: BMI 32.4
--- OUTSIDE RECORDS SUMMARY | 2024-09-18 12:31 | XMS_ITS | Clinical Summary ---
Author Organization anchor.travel [facility] [place] Address [address] [place] [address] Care Team Providers Care Religious Healer Name Role Phone Abraham Sutton MD Primary Care Provider [phone] Allergies Active Allergy Reactions Criticality Noted Date Comments Erythromycin 03/03/2017 Penicillins 05/13/2017 Medications Medication Sig Dispensed Refills Start Date End Date Status buPROPion (WELLBUTRIN SR) 150 MG 12 hr tablet 0 03/01/2017 Active clonazePAM (KLONOPIN) 1 MG tablet TAKE 1 TABLET BY MOUTH EVERY MORNING AND TAKE 1 & 1/2 - 2 TABLETS AT BEDTIME 0 12/30/2016 Active tolterodine (DETROL LA) 4 MG 24 hr capsule 0 01/02/2017 Active venlafaxine (EFFEXOR-XR) 150 MG 24 hr capsule 0 01/20/2017 Active venlafaxine (EFFEXOR) 100 MG tablet Take 100 mg by mouth 2 (two) times a day. 0 Active Nutritional Supplements (5-HTP TRYPTOPHAN) 50 MG TABS Take by mouth. 0 Active Tyrosine 500 MG CAPS Take by mouth. 0 Active Black Cohosh 40 MG CAPS Take by mouth. 0 Active Fulton-3 Fatty Acids (FISH OIL) 600 MG CAPS Take by mouth. 0 Active Calcium Carb-Cholecalcifero l (CALCIUM 600 + D) 600-200 MG-UNIT TABS Take by mouth. 0 Active Multiple Vitamin (MULTI-VITAMIN PO) Take by mouth. 0 Ac tive vitamin C (ASCORBIC ACID) 500 MG tablet Take 500 mg by mouth daily. 0 Active Loratadine (CLARITIN) 10 MG CAPS Take by mouth. 0 Active Estradiol [address] vaginally. 0 Active Glucosamine-Chondro itin (MOVE FREE PO) Take by mouth. 0 A ctive clindamycin (CLEOCIN) 300 MG capsule Take 2 capsules 1 hour prior to dental appointment or colonoscopy 10 capsule 3 06/22/2017 Active Calcium Carbonate-Vitamin D (Calcium High Potency/Vitamin D) 600-200 MG-UNIT TABS Take by mouth. 0 Active Cetirizine HCl 10 MG CAPS 0 10/28/2019 Active fluticasone (FLONASE) 50 MCG/ACT nasal spray INSTILL 2 SPRAYS INTO EACH NOSTRIL EVERY DAY 0 03/06/2020 Active Mirabegron ER (MYRBETRIQ) 25 MG TB24 24 hr tablet 0 Active vancomycin (VANCOCIN) 125 MG capsule TAKE DIRECTED BY MOUTH FOR 42 DAYS 0 08/23/2020 Active ciprofloxacin (CIPRO) 500 MG tablet Take 1 tab one hour prior to any dental work 5 tablet 0 09/17/2020 Active azithromycin (ZITHROMAX) 250 MG tablet Take 2 tabs (500 mg) one hour before any dental work 10 tablet 3 11/08/2020 Active ascorbic acid (VITAMIN C) 500 MG tablet Take 500 mg by mouth. 0 Active Gemtesa 75 MG TABS 0 03/19/2022 Active Family History Medical History Relation Name Comments Diabetes Father Hypertension Father Cancer Mother Relation Name Status Comments Father Mother Social History Tobacco Use Types Packs/Day Years Used Date Smoking Tobacco: Never Assessed Sex and Gender Information Value Date Recorded Sex Assigned at Not on file Gender Identity Not on file Sexual Orientation Not on file Job Start Date Occupation Industry Not on file Not on file Not on file Last Filed Vital Signs Vital Sign Reading Time Taken Comments Blood Pressure - - Pulse - - Temperature - - Respiratory Rate - - Oxygen Saturation - - Inhaled Oxygen Concentration - - Weight 61 kg (134 lb 7.7 oz) 03/10/2022 2:19 PM EDT Height 150 cm (4' 11.06 ) 03/10/2022 2:19 PM EDT Body Mass Index 27.11 03/10/2022 2:19 PM EDT Plan of Treatment Health Maintenance Due Date Last Done Comments Hepatitis C Screening 1950 COVID-19 Vaccine (#1) 1950 Depression Screening 1962 Preventative Health Evaluation 1968 DTap / Tdap / Td (1 - Tdap) 1969 Colon Cancer Screening (Colonoscopy) 1995 Breast Cancer Screening (Mammogram) 2000 Shingrix-Zoster Vaccine (1 of 2) 2000 Fall Risk Assessment 2015 Osteoporosis Screening (DEXA Scan) 2015 Pneumococcal Vaccine (1 of 1 - PCV) 2015 Influenza Vaccine (#1) 2024 RSV Adult > 60+ Yrs or Pregn ant (1 - 1-dose 75+ series) 2025 Hepatitis B Vaccines Aged Out No long er eligible based on patient's age to complete this topic RSV Ped < 20 months Aged Out No longe r eligible based on patient's age to complete this topic Care Teams Religious Healer Relationship Specialty Start Date End Date Abraham Sutton MD [address] [place] [id number] PCP - General Internal Medicine 03/02/17
--- OUTSIDE RECORDS SUMMARY | 2024-09-18 12:31 | XMS_ITS | Data Portability ---
Author Organization [place] [facility] Mandy Shoemaker [facility] [place] Address [address] [place] [address] Care Team Providers Care Flavorer Name Role Phone SEBASTIÁN BATISTA Primary Care Provider [phone] Assessment Encounter Date Assessment Date Assessment LastModified [...] more view 023 agustin 3 [facility], [address], [place], [address], 16:11:58 Medication Orders Synvisc-O ne 48 mg/6 mL intra-art icular syringe 023 [email or web address] [id number], [address] [place], [address], 14:52:52 Patient TargetsNo targets recorded. Patient Instructions Encounter Date Encounter Id Patient Instructions Last Modified By Organization Details Last Modified Time 12/11/2022 [id number] You have been pr ovided with a [...] ROCIO. [email or web address] Not available 12/11/2022 14:08:34 05/03/2023 [id number] views of the r ight shoulder were obtained today 05/03/2023 in the [place] office. Mild glenohumeral joint space narrowing. Mild [...] Rupture of rotator cuff of right shoulder [id number] 03 Active 2022 NATA AQUINO PA-C [address] [facility],[address], [place], [address], [place] [facility] 12:57:56 Problem Notes None recorded. Procedures Surgical History Date Name Laterality Status Provider Name and Address Organization Details Recorded Time 12/11/2022 Synvisc-On e Knee Inj completed ERYN BAEZ PA-C [address] [facility],[address], [place], [address], [place] [facility] 12/11/2022 14:37:46 Imaging Results None recorded. [...] SNOMED-CT Code Diagnosis ICD10 Code Diagnosis Note [id number] MD REENA Chappell [facility] [address] [facility] [address] [place] [address] 12/11/2022 14:04:37 12/11/2022 14:29:36 Osteoarthritis of left knee joint [id number] 23771 M17.12 [id number] MD REENA Euceda [facility] 299 [facility] [address] [place] [address] 05/03/2023 13:26:58 05/03/2023 14:23:33 Pain of right shoulder joint [id number] 4875102 M25.511 Rupture of rotator cuff of right shoulder 3464924832 9154203 M75.101 Health Concerns Section Related Observation LastModified by Organization Detai ls LastModified Time None Recorded Concern Status LastModified by Organization Details LastModified Time None Recorded Advance Directives Directive None Recorded Payers Encounter Date Sequence Insurance Name Policy Number Policy Mckinnon Covered Member ID Mckinnon Member ID Guarantor Name 12/11/2022 2 [place] [id number] Pema Yancey [id number] Pema Yancey 12/11/2022 1 [place] Pema Yancey [id number] Pemaaddison Yancey 05/03/2023 2 [place] [id number] Pemaaddison Yancey [id number] Pema Black 05/03/2023 1 [place] Pemaaddison Yancey [id number] Pema Martha Notes Date Note Type Note Provider Name [...] her stretching exercises. ERYN BAEZ PA-C [address] [facility],[address] [address], [place], [address], [place] [facility] 12/11/2022 14:38:56 05/03/2023 text/html Pleasant 73-year-old [...] retired. Never smoker. NATA AQUINO PA-C [address] [facility] [address], [place], [address], [place] [facility] 05/06/2023 13:13:58 OBGyn Episode No OBEpisode recorded.
--- OUTSIDE RECORDS SUMMARY | 2024-09-18 12:31 | XMS_ITS | Clinical Summary ---
Author Organization [facility] it Address [address] [place] [address] Care Team Providers Care Supervisor Properties Name Role Phone Abraham Sutton MD Primary Care Provider [phone] Surgical History Surgery Date Site/Laterality Comments KNEE SURGERY PROCEDURE:KNEE SURGERY HAND SURGERY PROCEDURE:HAND SURGERY JOINT REPLACEMENT PROCEDURE:JOINT REPLACEMENT Medical History Medical History Date Comments Raynaud disease DX:Raynaud disea se Sleep apnea DX:Sleep apnea Depression DX:Depression Family History Medical History Relation Name Comments Diabetes Father Hypertension Father Cancer Mother Relation Name Status Comments Father Mother Social History Tobacco Use Types Packs/Day Years Used Date Smoking Tobacco: Never Assessed Comments Unknown Sex and Gender Information Value Date Recorded Sex Assigned at Not on file Legal Sex Female 11:26 AM EST Gender Identity Not on file Sexual Orientation Not on file Obstetrics History Last Filed Vital Signs Vital Sign Reading [...] Health Maintenance Due Date Last Done Comments DTaP,Tdap,and Td Vaccines (1 - Tdap) 1969 Pneumococcal Vaccine: 50+ Years (1 of 1 - PCV) 2000 Zoster Vaccines (1 of 2) 2000 Colorectal Cancer Screening: Colonoscopy 07/03/2022 Depression Screening 07/03/2022 Falls Risk Assessment 07/03/2022 Hepatitis C Screening 07/03/2022 Social Influencers of Health Screening 07/03/2022 COVID-19 Vaccine ( - 2023- season) 2024 Influenza Vaccine (#1) 2024 RSV Immunization Patients 60+ Years Old (1 - 1-dose 75+ series) 2025 Breast Cancer Screening 02/20/2026 02/21/20 24, 02/19/2023, 02/16/2022, Additional history exists Osteoporosis Screening (Bone Density Screening) 06/26/2032 06/26/2022 HIB Vaccines Aged Out No longer eligi ble based on patient's age to complete this topic HPV Vaccines Aged Out No longer eligi ble based on patient's age to complete this topic Hepatitis A Vaccines Aged Out No long er eligible based on patient's age to complete this topic Hepatitis B Vaccines Aged Out No long er eligible based on patient's age to complete this topic IPV Vaccines Aged Out No longer eligi ble based on patient's age to complete this topic MMR Vaccines Aged Out No longer eligi ble based on patient's age to complete this topic Meningococcal ACWY Vaccine Aged Out N o longer eligible based on patient's age to complete this topic Meningococcal B Vacine Aged Out No lo nger eligible based on patient's age to complete this topic RSV Immunization Patients Under 20 months Aged Out No longer eligible based on patient's age to complete this topic Varicella Vaccines Aged Out No longer eligible based on patient's age to complete this topic Procedures Procedure Name Priority Date/Time Associated Diagnosis Comments [facility] SCREENING DIGITAL Routine 02/21/2024 4:27 PM EDT Encounter for screening mammogram for malignant neoplasm of breast [facility] DEXA AXIAL SKELETON Routine 06/26/2022 3:59 PM EST Encounter for screening for osteoporosis from Last 3 Months or Most Recently Relevant to Health Maintenance Results * [facility] SCREENING DIGITAL (02/21/2024 4:27 PM EDT) Anatomical Region Laterality Modality Mammography 02/21/2024 1:31 PM EDT Narrative 02/21/2024 4:27 PM EDT [facility] Diagnostic Imaging Department [address] [place] [address] Patient: ??MARITZA LINDQUIST ?/Age/Sex: 1950 - 73 - F Unit#: ??[id number] ? Location/Status: ??SPDIMAM/REG CLI ? Mnemonic/Ordering Site: ??DIGSC/SPMAM Ordering Physician: ??KEISHA PERALTA MD [facility] Screening Digital - 02/21/24 - 1355 Report Status:Signed EXAM: [facility] Screening Digital EXAM DATE AND TIME: 02/21/2024 1:55 PM HISTORY: ??Screening. Mother had breast carcinoma age 68. COMPARISON: ??02/19/23, 02/16/22, 02/12/21 TECHNIQUE: Bilateral digital breast tomosynthesis was performed in the CC and MLO projections. Computer aided detection with [employer] 3D 3.1 was employed. TISSUE DENSITY: b. There are scattered areas of fibroglandular density. FINDINGS: No suspicious masses, grouped microcalcifications, or areas of architectural distortion are seen. Benign-appearing microcalcifications are again seen bilaterally. Vascular calcification is present. The skin is unremarkable. IMPRESSION: Stable mammographic appearance of the breasts. ??No evidence of malignancy is seen. A negative mammogram in the presence of a clinically suspicious palpable abnormality does not preclude the possibility of malignancy or alter the indications for biopsy. BI-RADS: ??Category 2: Benign RECOMMENDATION(S): 1: Routine screening mammogram BILATERAL in 1 year. Dictating Physician: ??KRISTINE BEASLEY MD Electronically Signed by: ??KRISTINE BEASLEY MD Dic Date/Time: ??02/21/24 1626 Sign date/Time: ??02/21/24 1627 Procedure Note Kristine Beasley MD - 05/10/2024 [facility] Diagnostic Imaging Department [address] [place] [address] Patient: MARITZA LINDQUIST /Age/Sex: 1950 - 73 - F Unit#: [id number] Location/Status: SPDIMA/REG CLI Mnemonic/Ordering Site: [facility] Ordering Physician: KEISHA PERALTA MD [facility] Screening Digital - 02/21/24 - 1355 Report Status:Signed EXAM: [facility] Screening Digital EXAM DATE AND TIME: 02/21/2024 1:55 PM HISTORY: Screening. Mother had breast carcinoma age 68. COMPARISON: 02/19/23, 02/16/22, 02/12/21 TECHNIQUE: Bilateral digital breast tomosynthesis was performed in the CCand MLO projections. Computer aided detection with [employer] 3D 3.1was employed. TISSUE DENSITY: b. There are scattered areas of fibroglandular density. FINDINGS: No suspicious masses, grouped microcalcifications, or areas ofarchitectural distortion are seen. Benign-appearing microcalcifications are again seen bilaterally. Vascular calcification is present. The skin isunremarkable. IMPRESSION: Stable mammographic appearance of the breasts. No evidence of malignancyis seen. A negative mammogram in the presence of a clinically suspicious palpable abnormality does not preclude the possibility of malignancy or alter the indications for biopsy. BI-RADS: Category 2: Benign RECOMMENDATION(S): 1: Routine screening mammogram BILATERAL in 1 year. Dictating Physician: KRISTINE BEASLEY MD Electronically Signed by: KRISTINE BEASLEY MD Dic Date/Time: 02/21/246 Sign date/Time: 02/21/247 us Keisha Peralta MD IMG BI PROCEDURES Final Resul t * [facility] DEXA AXIAL SKELETON (06/26/2022 3:59 PM EST) Anatomical Region Laterality Modality Mammography 06/26/2022 9:28 AM EST Narrative 06/26/2022 3:59 PM EST [facility] Diagnostic Imaging Department [address] [place] [address] Patient: ??BLACK,MARITZA ?/Age/Sex: 1950 - 72 - F Unit#: ??[id number] ? Location/Status: ??SPDIMAM/REG CLI ? Mnemonic/Ordering Site: ??MAMDEXAAX/SPMAM Ordering Physician: ??CHIP TAO MD [facility] Dexa Axial Skeleton - 06/26/22 - 1019 [facility] Dexa Axial Skeleton INDICATION: POSTMENOPAUSAL Technique: Bone densitometry was performed utilizing dual energy x-ray absorptiometry (DEXA). The lumbar spine is evaluated in the AP projection from L1 through L4. The proximal femora are evaluated in the AP projection bilaterally. The patient is taking calcium and vitamin D supplements. COMPARISON: 03/03/2010 FINDINGS: AP spine: Bone mineral density: 1.495 gm/cm2 T-score: 2.6 Femoral total (mean, bilateral): Bone mineral density: 1.185 gm/cm2 T-score: 1.4 IMPRESSION: Findings suggesting normal bone mineral density. [id number] Dictating Physician: ??BENEDICT TAYLOR MD Electronically Signed by: ??BENEDICT TAYLOR MD Dic Date/Time: ??06/26/22 1558 Sign date/Time: ??06/26/22 1551 Procedure Note Benedict Taylor MD - 08/27/2023 [facility] Diagnostic Imaging Department [address] [place] [address] Patient: MARITZA LINDQUIST /Age/Sex: 1950 - 72 - F Unit#: [id number] Location/Status: [facility] Mnemonic/Ordering Site: [facility] Ordering Physician: CHIP TAO MD [facility] Dexa Axial Skeleton - 06/26/22 - 1018 [facility] Dexa Axial Skeleton INDICATION: POSTMENOPAUSAL Technique: Bone densitometry was performed utilizing dual energy x-ray absorptiometry (DEXA). The lumbar spine is evaluated in the AP projectionfrom L1 through L4. The proximal femora are evaluated in the AP projection bilaterally. The patient is taking calcium and vitamin D supplements. COMPARISON: 03/03/2010 FINDINGS: AP spine: Bone mineral density: 1.495 gm/cm2 T-score: 2.6 Femoral total (mean, bilateral): Bone mineral density: 1.185 gm/cm2 T-score: 1.4 IMPRESSION: Findings suggesting normal bone mineral density. [id number] Dictating Physician: BENEDICT TAYLOR MD Electronically Signed by: BENEDICT TAYLOR MD Dic Date/Time: 06/26/22 1558 Sign date/Time: 06/26/22 155 Chip Tao MD IMG BI PROCEDURES Final Result from Last 3 Months or Most Recently Relevant to Health Maintenance Care Teams Supervisor Properties Relationship Specialty Start Date End Date Abraham Sutton MD [address] [place] [id number] PCP - General Internal Medicine 03/02/17
--- OUTSIDE RECORDS SUMMARY | 2024-09-18 12:31 | XMS_ITS | Continuity of Care Document ---
Author Organization [facility] Address [address] [place] [address]- Care Team Providers Care Blow Down Helper Name Role Phone Cameron Merida MD Primary Care Physician Encounter [facility] Date(s): 08/17/24 - 08/24/24 [facility] Adult [address] [place] [address]- Attending Physician: Cameron Merida MD Encounter Type: Office Visit Allergies, Adverse Reactions, Alerts Substance Criticality Severity Reaction Reaction Severity Status doxycycline Active clindamycin Active erythromycin Diarrheal disor isaac Vomiting bile Sick headache Active cephalexin Active Keflex Active Immunizations Given and Recorded Vaccine Date Status Refusal Reason influenza virus vaccine, inactivated 05/09/24 Give n influenza virus vaccine, inactivated 04/23/23 Rene rded influenza virus vaccine, inactivated 04/17/22 Rene rded influenza virus vaccine, inactivated 04/23/21 Rene rded influenza virus vaccine, inactivated 04/24/14 Rene rded tetanus/diphtheria/pertussis, acel(Tdap) 05/09/24 Given tetanus/diphtheria/pertussis, acel(Tdap) 06/14/07 Recorded RSV vaccine preF3, recombinant 06/28/23 Recorded SARS-CoV-2(COVID-19)mRNA-LNP vac([id number]) 04/23/23 Recorded [id number] bivalent booster vax 04/10/22 Recorded SARS-CoV-2 (COVID-19) mRNA-1273 vaccine 11/26/21 R ecorded SARS-CoV-2 (COVID-19) mRNA-1273 vaccine 05/26/21 R ecorded SARS-CoV-2 (COVID-19) mRNA-1273 vaccine 10/24/20 R ecorded SARS-CoV-2 (COVID-19) mRNA-1273 vaccine 09/26/20 R ecorded zoster vaccine, inactivated 04/10/19 Recorded pneumococcal 23-valent vaccine 03/25/16 Recorded Medications 5-HTP 100 mg oral capsule 1 capsule = 100 mg, By Mouth, Daily at bedtime, Patient states she takes 200mg, 0 Refills, Maintenance, 05/26/16 8:28:59 AM EDT Start Date: 05/26/16 Status: Ordered Repeat number: 1 AutoCPAP 8-15 with heated humidification AutoCPAP 8-15 with heated humidification, See Instructions, # 1 each, Refills 0, Tot. Refills 0, Maintenance, use overnight and naps from [employer], 04/08/22 9:43:00 AM EDT, Compound Start Date: 04/08/22 Status: Ordered Quantity: 1.0 Unit: each Repeat number: 1 Calcium Citrate By Mouth, 2 times a day, 300mg, 0 Refills, Maintenance, 04/06/24 2:17:00 PM EDT, Partial fill upon patient request if the prescription is for a schedule II opioid drug. Start Date: 04/06/24 Status: Ordered Repeat number: 1 clonazePAM 1 mg oral tablet See Instructions, 0 Refills, Maintenance, 04/25/24 2:16:00 PM EDT, Partial fill upon patient requestif the prescription is for a schedule II opioid drug. Start Date: 04/25/24 Status: Ordered Repeat number: 1 Effexor XR 150 mg oral capsule, extended release 150 mg, 1, capsule, By Mouth, Daily, # 30 capsule, Refills 0, Maintenance, 05/26/16 8:27:49 AM EDT Start Date: 05/26/16 Status: Ordered Quantity: 30.0 Unit: capsule Repeat number: 1 Fish Oil 1200 mg oral capsule 1 capsule = 1,200 mg, By Mouth, Daily in AM, 0 Refills, Maintenance, 05/26/16 8:29:37 AM EDT Start Date: 05/26/16 Status: Ordered Repeat number: 1 Flonase Allergy Relief 50 mcg/inh nasal spray 1 sprays = 50 mcg, Daily, 0 Refills, Maintenance, 11/11/23 9:04:00 AM EDT, Partial fill upon patientrequest if the prescription is for a schedule II opioid drug. Start Date: 11/11/23 Status: Ordered Repeat number: 1 fluticasone 50 mcg/inh nasal spray 2 sprays = 100 mcg, Nares, Both, Daily, # 15.8 mL, 11 Refills, Maintenance, 04/29/24 2:46:00 PM EDT,[place], [facility]/pharmacy #[id number], Partial fill upon patient request if the prescription is for a schedule II opioid drug., 2 sprays Nares, Both Daily, 150.9, cm, 04/07/24 13:28:00 EDT, Height Start Date: 04/29/24 Status: Ordered Quantity: 15.8 Unit: mL Repeat number: 12 fluticasone 50 mcg/inh nasal spray 1 sprays = 50 mcg, Nares, Both, 2 times a day, 0 Refills, Maintenance, 04/28/24 12:49:00 PM EDT, [place], Partial fill upon patient request if the prescription is for a schedule II opioid drug. Start Date: 04/28/24 Status: Ordered Repeat number: 1 Gemtesa 75 mg oral tablet 1 tablet = 75 mg, By Mouth, Daily, # 30 tablet, 0 Refills, Maintenance, 04/08/22 9:45:00 AM EDT, Tablet, Partial fill upon patient request if the prescription is for a schedule II opioid drug. Start Date: 04/08/22 Status: Ordered Quantity: 30.0 Unit: tablet Repeat number: 1 MiraLax = 17 Gm, By Mouth, Daily, 0 Refills, Maintenance, 04/06/24 2:17:00 PM EDT, Partial fill upon patientrequest if the prescription is for a schedule II opioid drug. Start Date: 04/06/24 Status: Ordered Repeat number: 1 Misc Rx L Tyrosine 500mg, 2 times a day, Refills 0, Maintenance, 04/06/24 2:23:00 PM EDT, Supply Start Date: 04/06/24 Status: Ordered Repeat number: 1 Multivitamin Daily, Includes IU vitamin D3, 0 Refills, Maintenance, 05/26/16 8:31:30 AM EDT Start Date: 05/26/16 Status: Ordered Repeat number: 1 Restasis 0.05% ophthalmic emulsion 1 drops, Every 12 hours, 0 Refills, Maintenance, 04/06/24 2:17:00 PM EDT, Partial fill upon patient request if the prescription is for a schedule II opioid drug. Start Date: 04/06/24 Status: Ordered Repeat number: 1 Roge Move Free 0 Refills, Maintenance, 11/17/18 10:01:51 AM EDT Start Date: 11/17/18 Status: Ordered Repeat number: 1 trospium chloride 20 mg oral tablet 1 tablet = 20 mg, By Mouth, 2 times a day, # 60 tablet, 0 Refills, Maintenance, 05/09/24 10:34:00 AM EDT, Tablet, Partial fill upon patient request if the prescription is for a schedule II opioid drug. Start Date: 05/09/24 Status: Ordered Quantity: 60.0 Unit: tablet Repeat number: 1 Tylenol Extra Strength By Mouth, Every 6 hours, 0 Refills, Maintenance, 11/17/18 10:02:18 AM EDT Start Date: 11/17/18 Status: Ordered Repeat number: 1 Vitamin C 500 mg oral tablet 1 tablet = 500 mg, By Mouth, Daily, # 30 tablet, 0 Refills, Maintenance, 05/26/16 8:30:42 AM EDT, Tablet Start Date: 05/26/16 Status: Ordered Quantity: 30.0 Unit: tablet Repeat number: 1 Wellbutrin SR 150 mg/12 hours oral tablet, extended release 1 tablet = 150 mg, By Mouth, 2 times a day, # 60 tablet, 0 Refills, Maintenance, 11/17/18 10:00:46 AM EDT, ER Tablet Start Date: 11/17/18 Status: Ordered Quantity: 60.0 Unit: tablet Repeat number: 1 ZyrTEC 10 mg oral tablet 1 tablet = 10 mg, By Mouth, Daily, 0 Refills, Maintenance, 11/16/19 10:56:00 AM EDT Start Date: 11/16/19 Status: Ordered Repeat number: 1 Problem List Condition Confirmation Course Effective Dates Status H ealth Status Informant Parapelvic renal cyst Confirmed Active Allergic rhinitis Confirmed Active Basal cell carcinoma (BCC) Confirmed Active C. difficile diarrhea Confirmed Active GERD without esophagitis Confirmed Active Gingivitis Confirmed Active History of Clostridium difficile colitis Confirmed Active ILD (interstitial lung disease) Confirmed Active Mitral regurgitation Confirmed Active Chronic neutropenia Confirmed Active ELIZA (obstructive sleep apnea) Confirmed Active OAB (overactive bladder) Confirmed Active Overweight Confirmed Active Raynaud's disease Confirmed Active Sleep apnea Confirmed Active Vital Signs Most recent to oldest [Reference Range]: 1 2 3 Height 150.9 cm (08/17/24 1:13 PM) 150.9 cm (08/17/24 12:57 PM) 150.9 cm (08/17/24 12:54 PM) Weight 65.8 kg (08/17/24 12:54 PM) Oxygen Saturation [94-100 %] 100 % (08/17/24 12:54 PM) Pulse Rate [55-90 bpm] 99 bpm *H* (08/17/24 12:54 PM) Body Mass Index [18.5-24.99 kg/m2] 28.9 kg/m2 *H* (08/17/24 12:54 PM) Blood Pressure [90-138/55-84 mm Hg] 137/68mm Hg (08/17/24 1:13 PM) 140/70mm Hg *H* (08/17/24 12:57 PM) 143/67mm Hg *H* (08/17/24 12:54 PM) Temperature [96.8-100.4 DegF] 98.1 DegF (08/17/24 12:54 PM) Blood pressure sites Arm, right (08/17/24 1:13 PM) Arm, right (08/17/24 12:57 PM) Arm, left (08/17/24 12:54 PM) Temperature Route Oral (08/17/24 12:54 PM) Social History Social History Type Response Smoking Status Former smoker, quit more than 30 days ago entered on: 11/11/23 Sex Sex Representation Female (finding) Patient Care team information Care Team Personnel Name: Cameron Merida MD Position: S Physician - Primary Care Member Role: PCP Address: [address] [place] [address]- Telecom: Care Team Related Persons Name: JUANITO LINDQUIST Name: BRODERICK BENSON Name: SHANI CONLEY Insurance Providers Guarantor name: MARITZA LINDQUIST Health Plan Information #: 1 Payer: MEDICARE PART B OUTPT Member Number: [id number] Policy Number: JOANN Group Number: NA Health Plan Information #: 2 Payer: MEDEX Member Number: [id number] Policy Number: JOANN Group Number: [id number]
--- OUTSIDE RECORDS SUMMARY | 2024-09-18 12:31 | XMS_ITS | Data Portability ---
Author Organization [facility], , [facility] Address [address] [place] [address] Assessment No assessment recorded. Plan of Treatment [...] Ck - Colonoscopy completed Enrike Stover MD [address] [place] [address], [id number], [facility] 07/08/2016 09:24:41 Imaging Results None recorded. Procedure [...] SNOMED-CT Code Diagnosis ICD10 Code Diagnosis Note [id number] Enrike Stover MD [facility], [address] [address] 07/08/2016 08:07:02 07/08/2016 14:39:26 [id number] Kenna Quintero RN Endoscopy , [address] [address] 09/24/2022 09:12:11 09/25/2022 11:07:42 Health Concerns Section Related Observation LastModified by Organization Detai ls LastModified Time None Recorded Concern Status LastModified by Organization Details LastModified Time None Recorded Advance Directives Directive None Recorded Payers Encounter Date Sequence Insurance Name Policy Number Policy Mckinnon Covered Member ID Mckinnon Member ID Guarantor Name 07/08/2016 1 [place] [employer] [place] Pema Yancey [id number] A Pema Yancey 07/08/2016 2 [place] [id number] Pema Yancey [id number] Pema Yancey OBGyn Episode No OBEpisode recorded.
--- OUTSIDE RECORDS SUMMARY | 2024-09-18 12:31 | XMS_ITS | Data Portability ---
Author Organization [facility], [facility], [facility] Address [address] [place] [address] Assessment No assessment recorded. Plan of Treatment [...] Ck - Colonoscopy completed Enrike Stover MD [address] [place] [address], [phone] 09/24/2022 10:37:19 Imaging Results None recorded. Procedure Notes None recorded. Medical Equipment None Reported. Allergies Allergen ID Allergen Name Allergen Category Reaction Reaction Severity Criticality Documentation Date Start Date Code Code System Note Provider Name and Address Organization Details Recorded Time [id number] penicilli n G Not available other Not available Not available 09/23/2022 7980 RxNorm gi issue s JONA Temple, [facility] 3 14:25:37 [id number] azithromy lulu medicatio n other Not available Not available 09/23/2022 93223 RxNorm gi issue s JONA Temple, [facility] 3 14:25:24 [id number] amoxicill in medicatio n Not available Not available Not available 09/23/2022 723 RxNorm gi issue s JONA Temple, [facility] 3 14:26:02 [id number] erythromy lulu medicatio n Not available Not available Not available 09/23/2022 4053 RxNorm gi issue s Mildred Beltran RN [facility] 3 14:26:19 Medications Name Sig Start [...] SNOMED-CT Code Diagnosis ICD10 Code Diagnosis Note [id number] Enrike Stover MD [facility], [address] [address] 07/08/2016 08:07:02 07/08/2016 14:39:26 [id number] Kenna Quintero RN Endoscopy , [address] [address] 09/24/2022 09:12:11 09/25/2022 11:07:42 Health Concerns Section Related Observation LastModified by Organization Detai ls LastModified Time None Recorded Concern Status LastModified by Organization Details LastModified Time None Recorded Advance Directives Directive None Recorded Payers Encounter Date Sequence Insurance Name Policy Number Policy Mckinnon Covered Member ID Mckinnon Member ID Guarantor Name 07/08/2016 1 [place] [employer] Pema Bc [id number] A Pema Yancey 07/08/2016 2 [place] [id number] Pema Bc [id number] Pema Bc OBGyn Episode No OBEpisode recorded.
== END 2024-09-18 11:21 | disposition home or self-care (01) ==
PROVIDERS: PCP Internal Medicine; Visit Provider Orthopaedic Surgery
DX: M17.12 Unilateral primary osteoarthritis, left knee (principal)
CPT/HCPCS: 20610; 99213

== ENCOUNTER → 2024-09-18 10:56 | Outpatient (BNVA) | payer MEDICARE, SELFPAY | PROVIDERS: PCP Internal Medicine; Visit Provider Orthopaedic Surgery | DX: M17.12 Unilateral primary osteoarthritis, left knee (principal) | CPT/HCPCS: 20610; 99212; J2003; J7318 ==

== ENCOUNTER 2024-12-20 11:08 | Outpatient (AMB) | payer MEDICARE, SELFPAY ==
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
[2024-12-20 11:11] VITALS: BMI 32.4
--- OUTSIDE RECORDS SUMMARY | 2024-12-20 12:11 | XMS_ITS | Continuity of Care Document ---
Author Organization [facility] Address [address] [place] [address]- Care Team Providers Care Order Editor Name Role Phone Fuad CHAVEZ, Cameron Valderrama Primary Care Physician Encounter [facility] Date(s): 11/15/24 - 12/15/24 [facility] [address] [place] [address]- Encounter Type: Triage Allergies, Adverse Reactions, Alerts Substance Criticality Severity Reaction Reaction Severity Status doxycycline Active clindamycin Active Keflex Active erythromycin Diarrheal disor isaac Vomiting bile Sick headache Active amoxicillin 1 Not available Ac tive azithromycin 2 Other Activ e cephalexin Active penicillins Eruption Active 1Outside Source Comment: gi issues amoxicillin 2Outside Source Comment: gi issues azithromycin Immunizations Given and Recorded Vaccine Date Status Refusal Reason SARS-CoV-2(COVID-19)mRNA-LNP vac([id number]) 08/18/24 Recorded SARS-CoV-2(COVID-19)mRNA-LNP vac([id number]) 04/23/23 Recorded influenza virus vaccine, inactivated 05/09/24 Give n influenza virus vaccine, inactivated 04/23/23 Rene rded influenza virus vaccine, inactivated 04/17/22 Rene rded influenza virus vaccine, inactivated 04/23/21 Rene rded influenza virus vaccine, inactivated 04/24/14 Rene rded tetanus/diphtheria/pertussis, acel(Tdap) 05/09/24 Given tetanus/diphtheria/pertussis, acel(Tdap) 06/14/07 Recorded RSV vaccine preF3, recombinant 06/28/23 Recorded [id number] bivalent booster vax 04/10/22 Recorded SARS-CoV-2 (COVID-19) [...] 0, Maintenance, use overnight and naps from [employer], 04/08/22 9:43:00 AM EDT, Compound Start Date: [...] mL, 11 Refills, Maintenance, 04/29/24 2:46:00 PM EDT,[place], [facility]/pharmacy #[id number], Partial fill upon patient request if the prescription is for a schedule II opioid drug., 2 sprays Nares, Both Daily, 150.9, cm, 04/07/24 13:28:00 EDT, Height Start Date: 04/29/24 Status: Ordered Quantity: 15.8 Unit: mL Repeat number: 12 fluticasone 50 mcg/inh nasal spray 1 sprays = 50 mcg, Nares, Both, 2 times a day, 0 Refills, Maintenance, 04/28/24 12:49:00 PM EDT, [place], Partial fill upon patient request if the [...] Confirmed Active C. difficile diarrhea Confirmed Active Dermatographic urticaria Confirmed Active GERD without esophagitis Confirmed Active Gingivitis Confirmed Active History of Clostridium difficile colitis Confirmed Active ILD (interstitial lung disease) Confirmed Active Mitral regurgitation Confirmed Active Chronic neutropenia Confirmed Active ELIZA (obstructive sleep apnea) Confirmed Active OAB (overactive bladder) Confirmed Active Overweight Confirmed Active Psoriasis Confirmed Active Raynaud's disease Confirmed Active Sleep apnea Confirmed Active Social History Social History Type Response Smoking Status Former smoker, quit more than 30 days ago entered on: 11/11/23 Sex Sex Representation Female (finding) Patient Care team information Care Team Personnel Name: Cameron Merida MD Position: [facility] Physician - Primary Care Member Role: PCP Address: [address] [place] [address]- Telecom: Care Team Related Persons Name: JUANITO LINDQUIST Name: BRODERICK BENSON Name: SHANI CONLEY Insurance Providers Guarantor name: MARITZA LEXA Health Plan Information #: 1 Payer: MEDICARE PART B OUTPT Member Number: NA Policy Number: NA Group Number: NA Health Plan Information #: 2 Payer: MEDEX Member Number: NA Policy Number: NA Group Number: NA
== END 2024-12-20 11:24 | disposition home or self-care (01) ==
LOC: HO.HOS 11:09
PROVIDERS: PCP Internal Medicine; Visit Provider Orthopaedic Surgery
DX: M17.12 Unilateral primary osteoarthritis, left knee (principal)
CPT/HCPCS: 99213; G2211

== ENCOUNTER → 2024-12-20 11:08 | Outpatient (BNVA) | payer MEDICARE, SELFPAY | PROVIDERS: PCP Internal Medicine; Visit Provider Orthopaedic Surgery | DX: M17.12 Unilateral primary osteoarthritis, left knee (principal) | CPT/HCPCS: 99212 ==

== ENCOUNTER 2025-03-15 15:24 | Outpatient (AMB) | payer MEDICARE, SELFPAY ==
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
--- OUTSIDE RECORDS SUMMARY | 2025-03-15 15:27 | XMS_ITS | Clinical Summary ---
Author Organization [facility] Address [address] [place] [address] Phone Care Team Providers Care Mental Health Clinician Name Role Phone Ebony Jarrett Primary Care Provider [phone] Encounters Date Type Department Care Team Description 02/21/2025 3:00 PM EDT - 02/21/2025 11:59 PM EDT Hospital Encounter [facility] at [address] [address] Encounter for screening mammogram for breast cancer Discharge Disposition: Home or Self Care from Last 3 Months Surgical History Surgery Date Site/Laterality Comments KNEE SURGERY PROCEDURE:KNEE SURGERY HAND SURGERY PROCEDURE:HAND SURGERY JOINT REPLACEMENT PROCEDURE:JOINT REPLACEMENT Medical History Medical History Date Comments Raynaud disease DX:Raynaud disea se Sleep apnea DX:Sleep apnea Depression DX:Depression Family History Medical History Relation Name Comments Diabetes Father Hypertension Father Breast cancer Mother Cancer Mother Breast cancer Mother's Sister Relation Name Status Comments Father Mother Mother's Sister Alive Social History Tobacco Use Types Packs/Day Years Used Date Smoking Tobacco: Never Assessed Comments No Sex and Gender Information Value Date Recorded Sex Assigned at Not on file Legal Sex Female 11:26 AM EST Gender Identity Not on file Sexual Orientation Not on file Obstetrics History Para Term AB IAB SAB Ectopic Multiple Livin g Live Births 2 Last Filed Vital Signs Vital Sign Reading Time Taken Comments Blood Pressure - - Pulse - - Temperature - - Respiratory Rate - - Oxygen Saturation - - Inhaled Oxygen Concentration - - Weight 60.3 kg (133 lb) 02/21/2025 3:08 PM EDT Height 149.9 cm (4' 11 ) 02/21/2025 3:08 PM EDT Body Mass Index 26.86 02/21/2025 3:08 PM EDT Plan of Treatment Health Maintenance Due Date Last Done Comments Pneumococcal Vaccine: 50+ Years (2 of 2 - PCV) 03/25/2017 03/25/2016 Zoster Vaccines (2 of 2) 06/05/2019 04/10/2019 Colorectal Cancer Screening: Colonoscopy 07/03/2022 Falls Risk Assessment 07/03/2022 Hepatitis C Screening 07/03/2022 Medicare Annual Wellness Visit 07/03/2022 Social Influencers of Health Screening 07/03/2022 Depression Screening 07/26/2024 COVID-19 Vaccine (8 - Moderna risk season) 2025 08/18/2024, 04/23/2023, 04/10/2022, Additional history exists Influenza Vaccine (#1) 2025 , 04/23/2023, 04/17/2022, Additional history exists Osteoporosis Screening (Bone Density Screening) 06/26/2032 06/26/2022 DTaP,Tdap,and Td Vaccines (3 - Td or Tdap) 05/09/2034 05/09/2024, 06/14/2007 RSV Immunization Adult Patients Completed 06/28/2023 Breast Cancer Screening Discontinued 02/22/20, 02/21/2024, 02/19/2023, Additional history exists HIB Vaccines Aged Out No longer eligi [...] age to complete this topic Meningococcal B Vaccine Aged Out No l onger eligible based on patient's age to complete this topic RSV Immunization Patients Under 20 months Aged Out No longer eligible based on patient's age to complete this topic Varicella Vaccines Aged Out No longer eligible based on patient's age to complete this topic Procedures Procedure Name Priority Date/Time Associated Diagnosis Comments MG MAMMO DIGITAL SCREENING W ROBIN BILAT Routine 02/21/2025 3:19 PM EDT Encounter for screening mammogram for breast cancer [facility] DEXA AXIAL SKELETON Routine 06/26/2022 3:59 PM EST Encounter for screening for osteoporosis from Last 3 Months or Most Recently Relevant to Health Maintenance Results * MG Mammo Digital Screening w Robin bilat (02/21/2025 3:19 PM EDT) Anatomical Region Laterality Modality Breast Bilateral Mammography 02/22/2025 7:14 AM EDT Impressions 02/22/2025 7:19 AM EDT No mammographic evidence of malignancy. No suspicious interval change. A negative mammogram in the presence of a clinically suspicious palpable abnormality does not preclude the possibility of malignancy or alter the indications for biopsy. ASSESSMENT: BI-RADS 1: NEGATIVE RECOMMENDATION(S): 1: Routine screening mammogram BILATERAL in 1 year. [facility]amm[facility] location: [facility] at [address], [address] -------- FINAL REPORT -------- Dictated By: Ger Varghese Dictated Date: 02/22/2025 07:14 ET Assigned Physician: Ger Varghese Reviewed and Electronically Signed By: Ger Varghese Signed Date: 02/22/2025 07:19 ET Workstation ID: [id number] Transcribed By: Self Edit Transcribed Date: 02/22/2025 07:14 ET Narrative 02/22/2025 7:19 AM EDT EXAM: SCREENING MAMMOGRAPHY, BILATERAL HISTORY: SCREENING. Mother diagnosed with breast cancer age 68. Maternal aunt diagnosed with breast cancer in her 60's. COMPARISON: 02/21/24, 02/19/23, 02/16/22, 02/12/21 TECHNIQUE: Synthesized CC and MLO projections of each breast. Tomosynthesis of each breast in the CC and MLO projections. ADDITIONAL IMAGING: None Computer-aided detection was employed with the iCAD noodls AI 3-D. TISSUE DENSITY: There are scattered areas of fibroglandular density. (BI-RADS category B) FINDINGS: RIGHT BREAST: No suspicious mass. No suspicious calcification. No distortion. No additional suspicious right breast findings LEFT BREAST: No suspicious mass. No suspicious calcification. No distortion. No additional suspicious left breast findings Procedure Note Ger Varghese MD - 02/22/2025 EXAM: SCREENING MAMMOGRAPHY, BILATERAL HISTORY: SCREENING. Mother diagnosed with breast cancer age 68.Maternal aunt diagnosed with breast cancer in her 60's. COMPARISON: 02/21/24, 02/19/23, 02/16/22, 02/12/21 TECHNIQUE: Synthesized CC and MLO projections of each breast.Tomosynthesis of each breast in the CC and MLO projections. ADDITIONAL IMAGING: None Computer-aided detection was employed with the iCAD noodls AI 3-D. TISSUE DENSITY: There are scattered areas of fibroglandular density.(BI-RADS category B) FINDINGS: RIGHT BREAST: No suspicious mass. No suspicious calcification. No distortion. Noadditional suspicious right breast findings LEFT BREAST: No suspicious mass. No suspicious calcification. No distortion. Noadditional suspicious left breast findings IMPRESSION: No mammographic evidence of malignancy. No suspicious interval change. A negative mammogram in the presence of a clinically suspicious palpableabnormality does not preclude the possibility of malignancy or alter theindications for biopsy. ASSESSMENT: BI-RADS 1: NEGATIVE RECOMMENDATION(S): 1: Routine screening mammogram BILATERAL in 1 year. [facility]amm[facility] location[facility] at [address], [address] -------- FINAL REPORT -------- Dictated By: Ger Varghese Dictated Date: 02/22/2025 07:14 ET Assigned Physician: Ger Varghese Reviewed and Electronically Signed By: Ger Varghese Signed Date: 02/22/2025 07:19 ET Workstation ID: [id number] Transcribed By: Self Edit Transcribed Date: 02/22/2025 07:14 ET us Self Referral Sppl IMG BI PROCEDURES Final Resul t * MELINA DEXA AXIAL SKELETON (06/26/2022 3:59 PM EST) Anatomical Region Laterality Modality Mammography 06/26/2022 9:28 AM EST Narrative 06/26/2022 3:59 PM EST [facility] Diagnostic Imaging Department [address] [place] [id number] Patient: MARITZA LINDQUIST /Age/Sex: 1950 - 72 - F Unit#: [id number] Location/Status: [facility]/REG CLI Mnemonic[facility] Ordering Physician: CHIP TAO MD [facility] Dexa Axial Skeleton - 06/26/22 - 1019 [facility] Dexa Axial Skeleton INDICATION: POSTMENOPAUSAL [...] IMPRESSION: Findings suggesting normal bone mineral density. [id number] Dictating Physician: UMAIR TAYLOR MD Electronically Signed by: UMAIR TAYLOR MD Dic Date/Time: 06/26/221557 Sign date/Time: 06/26/221558 Procedure Note Umair Taylor MD - 08/27/2023 [facility] Diagnostic Imaging Department [address] [place] [id number] Patient: MARITZA LINDQUIST /Age/Sex: 1950 - 72 - F Unit#: [id number] Location/Status: [facility]/REG CLI Mnemonic/Ordering Site: [facility] Ordering Physician: CHIP TAO MD [facility] Dexa Axial Skeleton - 06/26/22 - 1019 [facility] Dexa Axial Skeleton INDICATION: POSTMENOPAUSAL [...] IMPRESSION: Findings suggesting normal bone mineral density. [id number] Dictating Physician: UMAIR TAYLOR MD Electronically Signed by: UMAIR TAYLOR MD Dic Date/Time: 06/26/22 1558 Sign date/Time: 06/26/22 1556 Chip Tao MD IMG BI PROCEDURES Final Result from Last 3 Months or Most Recently Relevant to Health Maintenance Insurance MEDICARE [facility] Care Teams Mental Health Clinician Relationship Specialty Start Date End Date Ebony Jarrett PA [address] [place] [address], [address] [place] [address] PCP - General 02/21/25
--- OUTSIDE RECORDS SUMMARY | 2025-03-15 15:27 | XMS_ITS ---
Author Name [facility] Organization Unknown History of Medication Use Medication Directions Dispensed Refills Start Date End Date Stat azithromycin 250 mg tablet TAKE 2 TABLETS BY MOUTH TODAY, THEN TAKE 1 TABLET DAILY FOR 4 DAYS 05/03/2023 completed bupropion HCl SR 150 mg tablet,12 hr sustained-release 05/03/2023 active doxycycline hyclate 100 mg capsule TAKE 1 CAPSULE BY MOUTH TWICE A DAY WITH MEALS 05/03/2023 completed Myrbetriq 25 mg tablet,extended release 05/03/2023 completed nystatin 100,000 unit/mL oral suspension SWISH AND SWALLOW 5ML 4 TIMES A DAY FOR 7 DAYS KEEP IN MOUTH LONG POSSIBLE 05/03/2023 completed cephalexin 500 mg capsule TAKE 1 CAPSULE BY MOUTH 4 TIMES A DAY FOR 5 DAYS active chlorhexidine gluconate 0.12 % mouthwash RINSE MOUTH WITH 15ML (1 CAPFUL) FOR 30 SECONDS IN MORNING AND EVENING AFTER BRUSHING, THEN SPIT active Effexor XR 150 mg capsule,extended release Take 1 capsule every day by oral route. active fluticasone propionate 50 mcg/actuation nasal spray,suspension USE 2 SPRAYS IN EACH NOSTRIL ONCE A DAY active Readi-Cat 2 2 % (w/v) oral suspension DRINK DIRECTED active Problems Problem Status Onset Date Problem Type Date of Resoluti on Source Tear of right rotator cuff active 2023-05-06 ProblemAct ENS_AONECT Encounters Encounter Type Encounter Reason Primary Diagnosis Location Date Ambulatory [facility] [place] 06/03/2023 Ambulatory [facility] [place] 05/04/2023 Ambulatory [facility] [place] 05/03/2023 Ambulatory [facility] [place] 05/03/2023 Ambulatory [facility] [place] 02/24/2023 Ambulatory [facility] [place] 02/24/2023 Ambulatory [facility] [place] 02/24/2023 Ambulatory [facility] [place] 02/24/2023 Ambulatory [facility] [place] 12/11/2022 Ambulatory [facility] [place] 12/09/2022 Care Team Organization Name Specialty Phone Email Start Date End Win espinal [facility] SEBASTIÁN BATISTA Primary Care 06/25/2022 03/13/2024
--- OUTSIDE RECORDS SUMMARY | 2025-03-15 15:27 | XMS_ITS | Patient Health Record ---
Author Organization [facility] antony Excello Address [address] [place] [address] Care Team Providers Care Fish Conservationist Name Role Phone Abraham Sutton Primary Care Provider Unavailabl e Bc Elle Unavailable [phone] Allergies Allergen (clinical drug ingredient) Drug/Non Drug Allergy documented on EMR Reaction Allergy Type Onset Date Status Penicillin (uncoded) rash Allergy Active azithromycin Z-Pack (uncoded) vomiting,diarrh ea Allergy Active Biaxin vomiting,diarrh ea Drug Allergy Active erythromycin Erythromycin vomiting,diarrh ea Drug Allergy Active Reason For Referral No Information Medications Medication SIG (Take, Route, Fr equency, Duration) Notes Start Date End Date Status clonazePAM 1 MG 2 tab Oral daily Active Wellbutrin SR 150 MG 1 tablet in the mor marjorie Orally Once a day; Duration: 30 day(s) Active Effexor XR 150 MG 1 capsule with food Orally Once a day; Duration: 30 day(s) Activ e Yuvafem 10 MCG 2 tablet Vaginal Two times a Week Active Vitamin C 500 MG Orally Once a day Active Calcium 630mg Active Vitamin D3 2000units Active Tylenol 500mg 2tab as needed A ctive Multi Vitamin Active L-Tyrosine 500 MG 2tab Orally Once a day Active Joint Health 300mg 2 tabs A ctive Myrbetriq 25 MG Oral; Duration: 90 Active Fish Oil 1400mg Once a day Act angelita ZyrTEC 10mg Active 5-HTP 100MG Once a day Active Social History Tobacco Use: Social History Observation Description Date Details (start date - stop date) Never Smoker NA - NA Tobacco Use/Smoking Question Answer Notes Are you a: nonsmoker Additional Findings: Tobacco Non-User Aggressive non-smoker Alcohol Screen Question Answer Notes Did you have a drink containing alcohol in the p ast year? Yes Points 0 Interpretation Negative Tobacco use other than smoking: Question Answer Notes Are you an other tobacco user? No Problems Problem Type SNOMED Code ICD Code Onset Dates Problem Status W/U Status Risk Notes Problem Localized, primary osteoarthritis of the ankle and/or foot (386951818) Primary osteoarthrit is, right ankle and foot (M19.071) Active confirmed Problem Localized, primary osteoarthritis of the ankle and/or foot (497693938) Primary osteoarthrit is, left ankle and foot (M19.072) Active confirmed Problem Acquired hammer toe of right foot (1511648183877956) Other hammer toe(s) (acquired), right foot (M20.41) Active confirmed Problem Acquired hammer toe of left foot (0607665991730278) Other hammer toe(s) (acquired), left foot (M20.42) Active confirmed Plan Of Treatment No Information Insurance Providers Payer Name Payer Address Payer Phone Subscriber Number Group Number Insured Name Patient Relationship to Insured Coverage Start Date Coverage End Date Medicare National Govt Svcs Inc [address] [facility] [place] [place] [address] [id number] Pema Yancey Self - patient is the insured [employer] [address] [place] [address] [id number] Pema Yancey Self - patient is the insured Medical (General) History Medical History History ICD Code Anxiety Arthritis Back,Hip,and Knee pain Depression raynauds disease Chicken pox Bone implants/screws Overactive bladder (OAB) Benign cyst left kidney sleep apnea Surgical History Surgery Date(Month/Year) right knee replacement 05/2017 basal cell carcinoma forhead 2018 carpal tunnel surgery 05/2000 trigger finger release 2010 non cancerous vascular lump right side f orhead 10/27/2018
--- OUTSIDE RECORDS SUMMARY | 2025-03-15 15:27 | XMS_ITS | Clinical Summary ---
Author Organization [facility] Address [address] [place] [address] Care Team Providers Care Hall Tender Name Role Phone Abraham Sutton MD Primary Care Provider [phone] Allergies Active Allergy Reactions Criticality Noted Date [...] MG CAPS Take by mouth. 0 Active Alice-3 Fatty Acids (FISH OIL) 600 MG CAPS [...] Tdap) 1969 Colon Cancer Screening (Colonoscopy) 1995 Shingrix-Zoster Vaccine (1 of 2) 2000 Fall Risk Assessment 2015 Osteoporosis Screening (DEXA Scan) 2015 Pneumococcal Vaccine (1 of 1 - PCV) 2015 RSV Adult > 60+ Yrs or Pregn ant (1 - 1-dose 75+ series) 2025 Influenza Vaccine (#1) 2025 Hepatitis B Vaccines Aged Out No long er eligible based on patient's age to complete this topic RSV Ped < 20 months Aged Out No longe r eligible based on patient's age to complete this topic Care Teams Hall Tender Relationship Specialty Start Date End Date Abraham Sutton MD [address] [place] [address] PCP - General Internal Medicine 03/02/17
--- OUTSIDE RECORDS SUMMARY | 2025-03-15 15:27 | XMS_ITS | Encounter Summary ---
Author Organization [facility] Address [address] [place] [address] [place] [address] Phone Care Team Providers Care Caul Fat Puller Name Role Phone Abraham Sutton MD Primary Care Provider Encounter Details Date Type Department Care Team (Latest Contact Info) Description 06/17/2022 Transcribe Orders [facility] [address] [place] [address] Cara Castillo NP [address] [place] [address] [email or web address] Credit Coach Constipation, unspecified constipation type (Primary Dx); Change in bowel habits Social History Tobacco Use Types Packs/Day Years Used Date Smoking Tobacco: Never Smokeless Tobacco: Never Alcohol Use Standard Drinks/Week Comments No 0 (1 standard drink = 0.6 oz pur e alcohol) Comments Unknown Sex and Gender Information Value Date Recorded Sex Assigned at Not on file Legal Sex Female 10:02 PM EDT Gender Identity Not on file Sexual Orientation Not on file documented as of this encounter Plan of Treatment Not on file documented as of this encounter Results * (ABNORMAL) TSH (06/17/2022 10:35 AM EST) TSH 4.82(H) 0.27 - 4.20 uIU/mL [facility] Blood 06/17/2022 10:3 5 AM EST 06/17/2022 10:41 AM EST us Cara Sofia Jonathan [facility] LAB BLOOD ORDERABLES Final Result [address] [address] * C-Reactive Protein (06/17/2022 10:35 AM EST) C REACTIVE PROTEIN <3.0 0.0 - 4.0 mg/L [facility] Blood 06/17/2022 10:3 5 AM EST 06/17/2022 10:41 AM EST Cara Castillo [facility] LAB BLOOD ORDERABLES Final Result [address] [address] * (ABNORMAL) Comprehensive metabolic panel (06/17/2022 10:35 AM EST) SODIUM 136 133 - 146 mmol/L [facility] POTASSIUM 4.2 3.3 - 5.1 mmol/L [facility] CHLORIDE 101 96 - 108 mmol/L [facility] CO2 25 21 - 35 mmol/L [facility] BUN 22(H) 6 - 19 mg/dL [facility] CREATININE 0.80 0.5 - 1.5 mg/dL [facility] GLUCOSE 83 70 - 99 mg/dL [facility] ALBUMIN 4.4 3.9 - 4.8 g/dL [facility] TOTAL PROTEIN 7.2 6.5 - 8.0 g/dL [facility] CALCIUM 9.6 8.4 - 10.3 mg/dL [facility] ALKALINE PHOSPHATASE 66 39 - 117 U/L [facility] TOTAL BILIRUBIN 0.6 0.0 - 1.2 mg/dL [facility] AST 33 0 - 37 U/L [facility] ALT 18 0 - 40 U/L [facility] GLOBULIN 2.8 1 - 4.8 g/dL [facility] EGFR 78 >59 mL/min/1.7 3m2 [facility] Comment:Estimated glomerular filtration rate calculated using the CKD-EPI refit equation. ANION GAP 14 10 - 20 mmol/L [facility] Blood 06/17/2022 10:3 5 AM EST 06/17/2022 10:41 AM EST us Cara Castillo NP LAB BLOOD ORDERABLES Final Result [facility] [address] [place] [address] * (ABNORMAL) CBC and differential (06/17/2022 10:35 AM EST) WBC 2.57(L) 4.00 - 11.00 K/uL [facility] RBC 4.34 3.72 - 5.30 M/uL [facility] HGB 13.3 11.4 - 15.9 g/dL [facility] HCT 39.8 34.2 - 46.8 % [facility] PLT 170 140 - 430 K/uL [facility] MCV 91.7 78.0 - 97.0 fL [facility] MCH 30.6 25.0 - 33.0 pg [facility] MCHC 33.4 32.0 - 36.0 g/dL [facility] RDW 12.8 11.0 - 16.0 % [facility] MPV 11.9 8.4 - 12.8 fl [facility] DIFF [employer] [facility] NEUTS 58.7 43.0 - 75.0 % [facility] LYMPHS 26.5 18.2 - 47.4 % [facility] MONOS 9.7 4.00 - 11.00 % [facility] EOS 3.5 0.0 - 8.0 % [facility] BASOS 1.6 0.0 - 2.0 % [facility] Granulocytes, immature (%) 0.0 0.0 - 0.9 % [facility] ABSOLUTE NEUTS 1.51(L) 1.80 - 7.70 K/uL [facility] ABSOLUTE LYMPHS 0.68(L) 1.00 - 3.10 K/uL [facility] ABSOLUTE MONOS 0.25 0.20 - 0.80 K/uL [facility] ABSOLUTE EOS 0.09 0.00 - 0.80 K/uL [facility] ABSOLUTE BASOS 0.04 0.00 - 0.09 K/uL [facility] Granulocytes, immature 0.00 0.00 - 0.05 K/uL [facility] Blood 06/17/2022 10:3 5 AM EST 06/17/2022 10:41 AM EST Caramando Penningtonkenneth Castillo [facility] LAB BLOOD ORDERABLES Final Result Performing Organization Address [facility] de Phone Number [address] [address] * Immunoglobulin A (06/17/2022 10:35 AM EST) IgA 187 70 - 400 mg/dL [facility] Blood 06/17/2022 10:3 5 AM EST 06/17/2022 10:41 AM EST [facility] LAB BLOOD ORDERABLES Final Result Performing Organization Address [facility] de Phone Number [address] [address] * Tissue transglutaminase IgA (06/17/2022 10:35 AM EST) TTG IGA ANTIBODY <1.2 <4.0 (Negative) U/mL [facility] Blood 06/17/2022 10:3 5 AM EST 06/17/2022 10:41 AM EST Cara Castillo [facility] LAB BLOOD ORDERABLES Final Result Performing Organization Address [facility] de Phone Number [facility] [address] [place] [address] documented in this encounter Visit Diagnoses Diagnosis Constipation, unspecified constipation type- Primary Change in bowel habits Other symptoms involving digestive system documented in this encounter Care Teams Caul Fat Puller Relationship Specialty Start Date End Date Abraham Sutton MD [address] [place] [address] [email or web address] PCP - General Internal Medicine 10/19/18 documented as of this encounter Additional Source Comments The information contained in this document represents components of the legal health record. It is not the complete legal health record.[facility]
[2025-03-15 15:28] VITALS: BP 104/66; PULSE 76; O2SAT 97; BMI 30.7
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
== END 2025-03-15 16:38 | disposition home or self-care (01) ==
LOC: HO.HMCH 15:25
PROVIDERS: PCP Internal Medicine
DX: M17.12 Unilateral primary osteoarthritis, left knee (principal); M34.9 Systemic sclerosis, unspecified; G47.33 Obstructive sleep apnea (adult) (pediatric); N32.81 Overactive bladder; R91.8 Other nonspecific abnormal finding of lung field; I73.00 Raynaud's syndrome without gangrene; I34.0 Nonrheumatic mitral (valve) insufficiency; D70.9 Neutropenia, unspecified; K21.9 Gastro-esophageal reflux disease without esophagitis

== ENCOUNTER → 2025-03-15 15:24 | Outpatient (BNVA) | payer MEDICARE, SELFPAY | PROVIDERS: PCP Internal Medicine | DX: M17.12 Unilateral primary osteoarthritis, left knee (principal); G47.33 Obstructive sleep apnea (adult) (pediatric); N32.81 Overactive bladder; R91.8 Other nonspecific abnormal finding of lung field; I73.00 Raynaud's syndrome without gangrene; I34.0 Nonrheumatic mitral (valve) insufficiency; M34.9 Systemic sclerosis, unspecified; D70.9 Neutropenia, unspecified; K21.9 Gastro-esophageal reflux disease without esophagitis | CPT/HCPCS: 96127; 99202 ==

== ENCOUNTER 2025-04-03 10:21 | Outpatient (REF) | payer MEDICARE, SELFPAY ==
--- OUTSIDE RECORDS SUMMARY | 2025-04-03 12:08 | XMS_ITS | Encounter Summary ---
Author Organization [facility] Address [address] [place] [address] [place] [address] Phone Care Team Providers Care Social Media Marketing Specialist Name Role Phone Abraham Sutton MD Primary Care Provider [phone] Encounter Details Date Type Department Care Team (Latest Contact Info) Description 06/17/2022 Transcribe Orders [facility] Laboratory [address] [place] [address] Cara Castillo NP [address] [place] [address] [email or web address] Constipation, unspecified constipation type (Primary Dx); Change [...] EST) TSH 4.82(H) 0.27 - 4.20 uIU/mL [facility] Blood 06/17/2022 10:3 5 AM EST 06/17/2022 10:41 AM EST us Cara Sofia Jonathan REIMBURSEMENT REPRESENTATIVE LAB BLOOD ORDERABLES Final Result [address] [address] * C-Reactive Protein (06/17/2022 10:35 AM EST) C REACTIVE PROTEIN <3.0 0.0 - 4.0 mg/L [facility] Blood 06/17/2022 10:3 5 AM EST 06/17/2022 10:41 AM EST Cara Castillo REIMBURSEMENT REPRESENTATIVE LAB BLOOD ORDERABLES Final Result [address] [address] * (ABNORMAL) Comprehensive metabolic panel (06/17/2022 10:35 AM EST) SODIUM 136 133 - 146 mmol/L [facility] POTASSIUM 4.2 3.3 - 5.1 mmol/L [facility] CHLORIDE 101 96 - 108 mmol/L [facility] CO2 25 21 - 35 mmol/L [facility] BUN 22(H) 6 - 19 mg/dL [facility] CREATININE 0.80 0.5 - 1.5 mg/dL [facility] GLUCOSE 83 70 - 99 mg/dL [facility] ALBUMIN 4.4 3.9 - 4.8 g/dL [facility] TOTAL PROTEIN 7.2 6.5 - 8.0 g/dL [facility] CALCIUM 9.6 8.4 - 10.3 mg/dL [facility] ALKALINE PHOSPHATASE 66 39 - 117 U/L [facility] TOTAL BILIRUBIN 0.6 0.0 - 1.2 mg/dL [facility] AST 33 0 - 37 U/L [facility] ALT 18 0 - 40 U/L [facility] GLOBULIN 2.8 1 - 4.8 g/dL [facility] EGFR 78 >59 mL/min/1.7 3m2 [facility] Comment:Estimated glomerular filtration rate calculated using the CKD-EPI refit equation. ANION GAP 14 10 - 20 mmol/L [facility] Blood 06/17/2022 10:3 5 AM EST 06/17/2022 10:41 AM EST us Cara Castillo NP LAB BLOOD ORDERABLES Final Result [facility] [address] [place] [address] * (ABNORMAL) CBC and differential (06/17/2022 10:35 AM EST) WBC 2.57(L) 4.00 - 11.00 K/uL [facility] RBC 4.34 3.72 - 5.30 M/uL [facility] HGB 13.3 11.4 - 15.9 g/dL [facility] HCT 39.8 34.2 - 46.8 % [facility] PLT 170 140 - 430 K/uL [facility] MCV 91.7 78.0 - 97.0 fL [facility] MCH 30.6 25.0 - 33.0 pg [facility] MCHC 33.4 32.0 - 36.0 g/dL [facility] RDW 12.8 11.0 - 16.0 % [facility] MPV 11.9 8.4 - 12.8 fl [facility] DIFF METHOD Auto [facility] NEUTS 58.7 43.0 - 75.0 % [facility] LYMPHS 26.5 18.2 - 47.4 % [facility] MONOS 9.7 4.00 - 11.00 % [facility] EOS 3.5 0.0 - 8.0 % [facility] BASOS 1.6 0.0 - 2.0 % [facility] Granulocytes, immature (%) 0.0 0.0 - 0.9 % [facility] ABSOLUTE NEUTS 1.51(L) 1.80 - 7.70 K/uL [facility] ABSOLUTE LYMPHS 0.68(L) 1.00 - 3.10 K/uL [facility] ABSOLUTE MONOS 0.25 0.20 - 0.80 K/uL [facility] ABSOLUTE EOS 0.09 0.00 - 0.80 K/uL [facility] ABSOLUTE BASOS 0.04 0.00 - 0.09 K/uL [facility] Granulocytes, immature 0.00 0.00 - 0.05 K/uL [facility] Blood 06/17/2022 10:3 5 AM EST 06/17/2022 10:41 AM EST Caramando Penningtonkenneth Castillo REIMBURSEMENT REPRESENTATIVE LAB BLOOD ORDERABLES Final Result Performing Organization Address [facility] de Phone Number [address] [address] * Immunoglobulin A (06/17/2022 10:35 AM EST) IgA 187 70 - 400 mg/dL [facility] Blood 06/17/2022 10:3 5 AM EST 06/17/2022 10:41 AM EST [facility]illo REIMBURSEMENT REPRESENTATIVE LAB BLOOD ORDERABLES Final Result Performing Organization Address [facility] de Phone Number [address] [address] * Tissue transglutaminase IgA (06/17/2022 10:35 AM EST) TTG IGA ANTIBODY <1.2 <4.0 (Negative) U/mL [facility] Blood 06/17/2022 10:3 5 AM EST 06/17/2022 10:41 AM EST Cara Castillo REIMBURSEMENT REPRESENTATIVE LAB BLOOD ORDERABLES Final Result Performing Organization Address [facility] de Phone Number [facility] [place] [address] documented in this encounter Visit Diagnoses Diagnosis Constipation, unspecified constipation type- Primary Change in bowel habits Other symptoms involving digestive system documented in this encounter Care Teams Social Media Marketing Specialist Relationship Specialty Start Date End Date Abraham Sutton MD [address] [place] [address] [email or web address] [email or web address] PCP - General Internal Medicine 10/19/18 documented as of this encounter Additional Source Comments The information contained in this document represents components of the legal health record. It is not the complete legal health record.[facility]
--- OUTSIDE RECORDS SUMMARY | 2025-04-03 12:09 | XMS_ITS | Clinical Summary ---
Author Organization [facility] Address [address] [place] [address] Phone Care Team Providers Care Contracting Manager Name Role Phone Ebony Jarrett Primary Care Provider [phone] Encounters Date Type Department Care Team Description 02/21/2025 3:00 PM EDT - 02/21/2025 11:59 PM EDT Hospital [facility] [address] [address] Encounter for screening mammogram for [...] Encounter for screening mammogram for breast cancer [facility] DEXA AXIAL SKELETON Routine 06/26/2022 3:59 [...] year. 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 TISSUE DENSITY: There are scattered [...] year. Mammography location: [facility] [address], [address] -------- FINAL REPORT -------- Dictated By: Ger Varghese Dictated Date: 02/22/2025 07:14 ET Assigned Physician: Ger Varghese Reviewed and Electronically Signed By: Ger Varghese Signed Date: 02/22/2025 07:19 ET Workstation ID: [id number] Transcribed By: Self Edit Transcribed Date: 02/22/2025 07:14 ET us Self Referral Sppl IMG BI PROCEDURES Final Resul t * [facility] DEXA AXIAL SKELETON (06/26/2022 3:59 PM EST) Anatomical Region Laterality Modality Mammography 06/26/2022 9:28 AM EST Narrative 06/26/2022 3:59 PM EST [facility] Diagnostic Imaging Department [address] [place] [address] Patient: MARITZA LINDQUIST /Age/Sex: 1950 - 72 - F Unit#: [id number] Location/Status: [facility]/REG CLI Mnemonic[facility] Ordering Physician: CHIP TAO MD [facility] Dexa Axial Skeleton - 06/26/22 - 1019 [facility] Dexa Axial Skeleton INDICATION: POSTMENOPAUSAL Technique: Bone [...] IMPRESSION: Findings suggesting normal bone mineral density. [id number] Dictating Physician: UMAIR TAYLOR MD Electronically Signed by: UMAIR TAYLOR MD Dic Date/Time: 06/26/221557 Sign date/Time: 06/26/221558 Procedure Note Umair Taylor MD - 08/27/2023 [facility] Diagnostic Imaging Department [address] [place] [address] Patient: MARITZA LINDQUIST /Age/Sex: 1950 - 72 - F Unit#: [id number] Location/Status: SPD[facility]AM/REG CLI Mnemonic/Ordering Site: [facility]X/SPMAM Ordering Physician: CHIP TAO MD [facility] Dexa Axial Skeleton - 06/26/22 - 1019 [facility] Dexa Axial Skeleton INDICATION: POSTMENOPAUSAL Technique: Bone [...] IMPRESSION: Findings suggesting normal bone mineral density. [id number] Dictating Physician: UMAIR TAYLOR MD Electronically Signed by: UMAIR TAYLOR MD Dic Date/Time: 06/26/22 1558 Sign date/Time: 06/26/22 155 Chip Tao MD IMG BI PROCEDURES Final Result from Last 3 Months or Most Recently Relevant to Health Maintenance Insurance MEDICARE [facility] Care Teams Contracting Manager Relationship Specialty Start Date End Date Ebony Jarrett PA [address] [place] [address], [address] [place] [address] PCP - General 02/21/25
--- OUTSIDE RECORDS SUMMARY | 2025-04-03 12:09 | XMS_ITS | Patient Health Record ---
Author Organization [facility] antony Brooks Address [address] [facility] [place] [address] Care Team Providers Care Fermentation Engineer Name Role Phone Abraham Sutton Primary Care Provider Unavailabl e Bc Elle Unavailable [phone] Allergies Allergen (clinical drug ingredient) Drug/Non Drug [...] primary osteoarthritis of the ankle and/or foot (569730318) Primary osteoarthrit is, right ankle and foot (M19.071) Active confirmed Problem Localized, primary osteoarthritis of the ankle and/or foot (511500355) Primary osteoarthrit is, left ankle and foot (M19.072) Active confirmed Problem Acquired hammer toe of right foot (2203496811575166) Other hammer toe(s) (acquired), right foot (M20.41) Active confirmed Problem Acquired hammer toe of left foot (7117000816756466) Other hammer toe(s) (acquired), left foot (M20.42) Active confirmed Plan Of Treatment No Information Insurance Providers Payer Name Payer Address Payer Phone Subscriber Number Group Number Insured Name Patient Relationship to Insured Coverage Start Date Coverage End Date Medicare National Govt Svcs Inc [address] [place] [address] [id number] Pema Yancey Self - patient is the insured [employer] [address] [place] [address] [id number] Pema Yancey Self - patient is [...]
--- OUTSIDE RECORDS SUMMARY | 2025-04-03 12:09 | XMS_ITS | Clinical Summary ---
Author Organization [employer] [facility] Address [address] [place] [address] Care Team Providers Care Video Game Producer Name Role Phone Abraham Sutton MD Primary Care Provider [phone] Allergies Active Allergy Reactions Criticality Noted Date [...] MG CAPS Take by mouth. 0 Active Martin-3 Fatty Acids (FISH OIL) 600 MG CAPS [...] age to complete this topic Care Teams Video Game Producer Relationship Specialty Start Date End Date Abraham Sutton MD [address] [place] [address] PCP - General Internal Medicine 03/02/17
--- OUTSIDE RECORDS SUMMARY | 2025-04-03 12:09 | XMS_ITS | Clinical Summary ---
Author Organization [facility] Address [address] [address] Phone Care Team Providers Care Direct Sales Professional Name Role Phone Abraham Sutton MD Primary Care Provider [phone] Allergies Active Allergy Reactions Criticality Noted Date Comments Erythromycin Diarrhea,Headaches,N ausea and/or Vomiting 03/03/2017 Penicillins Rash Low 05/13/2017 Medications omega-3 fatty acids (FISH OIL) 500 mg Cap Take by mouth daily. Active 5-hydroxytrypto jara, 5-HTP, (5-HTP) 100 mg Cap Take by mouth. Activ e multivitamin per tablet Take by mouth. Acti ve ascorbic acid, vitamin C, (VITAMIN C) 500 MG tablet Take 500 mg by mouth. Active buPROPion (WELLBUTRIN SR) 150 MG SR 12 hr tablet 7 Active calcium carbonate-vitam in D3 1,500 mg (600 mg elemental)-200 units Tab Take by mouth. Activ e clindamycin (CLEOCIN) 300 MG capsule Take 2 capsules 1 hour prior to dental appointment or colonoscopy 7 Active clonazePAM (KLONOPIN) 1 MG tablet TAKE 1 TABLET BY MOUTH EVERY MORNING AND TAKE 1 & 1/2 - 2 TABLETS AT BEDTIME 7 Active estradiol (VAGIFEM) [address] vaginally. Act angelita tyrosine 500 mg Cap Take by mouth. Activ e venlafaxine (EFFEXOR-XR) 150 MG 24 hr capsule 7 Active cetirizine (ZYRTEC) 10 mg capsule 0 Active mirabegron (MYRBETRIQ) 25 mg Tb24 Active fluticasone propionate (FLONASE) 50 mcg/actuation nasal spray INSTILL 2 SPRAYS INTO EACH NOSTRIL EVERY DAY 0 Active Active Problems Problem Noted Date Diagnosed Date Mass of face 03/11/2020 Changing skin lesion 08/19/2018 Family History Medical History Relation Comments Diabetes Father Heart disease Father Cancer Mother Relation Status Comments Father Mother Social History Tobacco Use Types Packs/Day Years Used Date Smoking Tobacco: Never Smokeless Tobacco: Never Alcohol Use Standard Drinks/Week Comments No 0 (1 standard drink = 0.6 oz pur e alcohol) Education Answer Date Recorded Are you interested in more education? Not on yolande e 11/20/2022 Are you concerned about learning? Not on file 11/20/2022 No 11/20/2022 No 11/20/2022 Digital Access Answer Date Recorded No 12/19/2022 No 12/19/2022 No 12/19/2022 Reliable internet access at home? Not on file 12/19/2022 Device with a working camera? Not on file Comments Unknown Sex and Gender Information Value Date Recorded Sex Assigned at Not on file Legal Sex Female 10:02 PM EDT Gender Identity Not on file Sexual Orientation Not on file Last Filed Vital Signs Vital Sign Reading Time Taken Comments Blood Pressure 133/81 03/11/2020 10:51 AM EDT Pulse 97 03/11/2020 10:51 AM EDT Temperature - - Respiratory Rate - - Oxygen Saturation - - Inhaled Oxygen Concentration - - Weight 63 kg (138 lb 12.8 oz) 03/11/2020 10:51 A M EDT Height 149.9 cm (4' 11 ) 08/19/2018 11:10 AM EST Body Mass Index 28.03 08/19/2018 11:10 AM EST Plan of Treatment Health Maintenance Due Date Last Done Comments Adult Td,Tdap Booster 1950 LIPID PANEL 1950 DEPRESSION SCREENING 1962 HEPATITIS C SCREENING 1968 COLOGUARD 1995 COLONOSCOPY 1995 COLORECTAL CANCER SCREENING 1995 FIT TEST 1995 FOBT 1995 SIGMOIDOSCOPY 1995 VIRTUAL COLONOSCOPY 1995 PNEUMOCOCCAL VACCINES (50+ years) (1 of 1 - PCV) 2000 OSTEOPOROSIS SCREENING INITI AL (ONE-TIME) 2015 ZOSTER VACCINES (2 of 2) 06/05/2019 04/10/2019 INFLUENZA VACCINE (#1) 2025 04/24/2014 RSV VACCINE (1 - 1-dose 75+ series) 2025 COVID-19 VACCINE (3 - 2024-2 6 season) 2025 10/24/2020, 09/26/2020 SMOKING STATUS SCREENING (On ce After 26 Yrs) Completed 03/11/2020 HEPATITIS A VACCINES Aged Out No long er eligible based on patient's age to complete this topic HIB VACCINES Aged Out No longer eligi ble based on patient's age to complete this topic MENINGOCOCCAL VACCINES (ACWY) Aged Out No longer eligible based on patient's age to complete this topic MENINGOCOCCAL VACCINES (B) Aged Out N o longer eligible based on patient's age to complete this topic Medical Devices Not on file Insurance MEDICARE PART A & B [facility] MEDEX SUPPLEMENT MEDICARE PART A & B [employer] MEDEX SUPPLEMENT MEDICARE PART A & B [employer] MEDEX SUPPLEMENT MEDICARE PART A & B [employer] MEDEX SUPPLEMENT MEDICARE PART A & B [employer] MEDEX SUPPLEMENT MEDICARE PART A & B [employer] MEDEX SUPPLEMENT Member Subscriber Plan / Payer ( fective 2015-Present) Name:Pema Yancey Relation to Subscriber:Self Name:Pema Yancey Payer ID:[id number] ([facility]) Type:Indemnity Address: [facility] [id number] [place] [address] MEDICARE PART A & B [employer]UE [employer]OSS MEDEX SUPPLEMENT MEDICARE PART A & B BLUE [employer]OSS MEDEX SUPPLEMENT Member Subscriber Plan / Payer ( fective 2015-Present) Name:Pema Yancey Relation to Subscriber:Self Name:Pema Yancey Payer ID:[id number] ([facility]) Type:Indemnity Address: [facility] [id number] [place] [address] MEDICARE PART A & B [employer] MEDEX SUPPLEMENT Member Subscriber Plan / Payer (Ef fective 2015-Present) Name:Pema Yancey Relation to Subscriber:Self Name:Pema Yancey Payer ID:[id number] (NAIC) Type:Indemnity Address: [address] [place] [id number] Care Teams Direct Sales Professional Relationship Specialty Start Date End Date Abraham Sutton MD [address] [place] [address] [email or web address] PCP - General Internal Medicine 05/13/18 Additional Source Comments The information contained in this document represents components of the legal health record. It is not the complete legal health record.[facility]
[2025-04-03 13:24] LABS: Hematocrit 38.1 % (37.0-47.0); Hemoglobin 13.0 g/dl (12.0-16.0); Mean Corpuscular HGB Conc 34.1 g/dl (31.0-35.0); Mean Corpuscular Hemoglobin 31.1 pg (27.0-33.0); Mean Corpuscular Volume 91.1 fL (80.0-98.0); NRBC Abs Auto 0.000 X10*3/uL (0.0-0.012); NRBC Pct Auto 0.0 /100WBC (0.0-0.2); Platelet Count 152 X10*3/uL (160-400); Red Blood Count 4.18 X10*6/uL (4.20-5.50); White Blood Count 2.2 X10*3/uL (4.8-10.8)
[2025-04-03 13:47] LABS: Alanine Aminotransferase 18 U/L (0-31); Albumin Level 4.4 g/dL (3.5-5.0); Alkaline Phosphatase 64 U/L (39-117); Anion Gap 12 (12-20); Aspartate Amino Transferase 28 U/L (5-31); Blood Urea Nitrogen 23 mg/dL (9-16); Calcium 9.2 mg/dL (8.4-10.2); Carbon Dioxide 28 mmol/L (22-29); Chloride 105 mmol/L (96-108); Cholesterol 203 mg/dL (<200); Estimated Glomerular Filt Rate > 60; HDL Cholesterol 67 mg/dL (>40); Potassium 3.9 mmol/L (3.3-5.1); Sodium 141 mmol/L (135-145); Total Protein 7.0 g/dL (6.5-8.0); Triglycerides 45 mg/dL (<150)
[2025-04-03 14:13] LABS: Folate 13.3 ng/mL (> or = 4.0); Vitamin B12 529 pg/mL (200-900)
[2025-04-03 14:40] LABS: Free T4 (Free Thyroxine) 0.93 ng/dL (0.71-1.85)
[2025-04-03 14:48] LABS: Atypical Lymph Absolute Manual 0.1 x10*3/uL; Atypical Lymphs Percent Manual 3 % (0-6); Band Neutrophils Percent 5 % (3-5); Basophils Percent Manual 1 % (0-2); Eosinophils Absolute Manual 0.1 X10*3/uL (0.0-0.4); Eosinophils Percent Manual 4 % (0-4); Lymphocytes Absolute Manual 0.3 X10*3/uL (1.2-4.9); Lymphocytes Percent Manual 12 % (20-40); Monocytes Absolute Manual 0.3 X10*3/uL (0.1-1.2); Monocytes Percent Manual 13 % (2-11); Neutrophils Absolute Manual 1.5 X10*3/uL (2.0-8.3); Neutrophils Percent Manual 62 % (45-73)
[2025-04-03 14:50] LABS: Ovalocytes 1+ (5-14) /OIF; RBC Morphology NOTED
[2025-04-09 18:33] LABS: Mixing Study - PT 10.8 sec (9.0-11.5); PTT LA 71 sec (< OR = 40)
== END 2025-04-03 10:22 | disposition home or self-care (01) ==
LOC: HO.HMGCLDS 10:21
DX: Z00.00 Encounter for general adult medical examination without abnormal findings (principal); N32.81 Overactive bladder; R23.3 Spontaneous ecchymoses; Z13.220 Encounter for screening for lipoid disorders; Z13.21 Encounter for screening for nutritional disorder; Z13.29 Encounter for screening for other suspected endocrine disorder
CPT/HCPCS: 36415; 80053; 80061; 82306; 82607; 82746; 84439; 84443; 85007; 85025; 85027; 85611; 85732

== ENCOUNTER 2025-04-05 13:17 | Outpatient (REF) | payer MEDICARE, SELFPAY ==
[2025-04-05 17:28] LABS: MANUAL DIFF FLAG NO
[2025-04-05 17:34] LABS: Hematocrit 38.4 % (37.0-47.0); Hemoglobin 12.8 g/dl (12.0-16.0); Imm Gran Abs Auto 0.01 X10*3/uL (0.00-0.03); Imm Gran Pct Auto 0.4 % (0.0-0.4); Lymphocytes Absolute Auto 0.5 X10*3/uL (1.2-4.9); Mean Corpuscular HGB Conc 33.3 g/dl (31.0-35.0); Mean Corpuscular Hemoglobin 30.4 pg (27.0-33.0); Mean Corpuscular Volume 91.2 fL (80.0-98.0); NRBC Abs Auto 0.000 X10*3/uL (0.0-0.012); NRBC Pct Auto 0.0 /100WBC (0.0-0.2); Platelet Count 147 X10*3/uL (160-400); Red Blood Count 4.21 X10*6/uL (4.20-5.50); White Blood Count 2.6 X10*3/uL (4.8-10.8)
[2025-04-05 17:35] LABS: Hematocrit 37.5 % (37.0-47.0); Hemoglobin 12.7 g/dl (12.0-16.0); Imm Gran Abs Auto 0.00 X10*3/uL (0.00-0.03); Imm Gran Pct Auto 0.0 % (0.0-0.4); Lymphocytes Absolute Auto 0.4 X10*3/uL (1.2-4.9); Mean Corpuscular HGB Conc 33.9 g/dl (31.0-35.0); Mean Corpuscular Hemoglobin 31.0 pg (27.0-33.0); Mean Corpuscular Volume 91.5 fL (80.0-98.0); NRBC Abs Auto 0.000 X10*3/uL (0.0-0.012); NRBC Pct Auto 0.0 /100WBC (0.0-0.2); Platelet Count 153 X10*3/uL (160-400); Red Blood Count 4.10 X10*6/uL (4.20-5.50); White Blood Count 2.6 X10*3/uL (4.8-10.8)
[2025-04-05 17:57] LABS: Alanine Aminotransferase 19 U/L (0-31); Aspartate Amino Transferase 29 U/L (5-31); Estimated Glomerular Filt Rate > 60
[2025-04-06 15:47] LABS: Antibody to SS-A Antigen <1.0 NEG AI (<1.0 NEG); Antibody to SS-B Antigen <1.0 NEG AI (<1.0 NEG)
[2025-04-10 11:08] LABS: Anti Nuclear Antibody Pattern Nuclear, Nucleolar; Anti Nuclear Antibody Screen POSITIVE (NEGATIVE); Anti Nuclear Antibody Titer 1:1280 titer
== END 2025-04-05 13:18 | disposition home or self-care (01) ==
LOC: HO.HKASLDS 13:17
PROVIDERS: Visit Provider Internal Medicine Rheumatology
DX: Z00.00 Encounter for general adult medical examination without abnormal findings (principal); H04.123 Dry eye syndrome of bilateral lacrimal glands; R68.2 Dry mouth, unspecified; I73.00 Raynaud's syndrome without gangrene; I78.1 Nevus, non-neoplastic; D72.819 Decreased white blood cell count, unspecified; M34.9 Systemic sclerosis, unspecified
CPT/HCPCS: 36415; 82565; 83520; 84450; 84460; 85025; 85652; 86038; 86039; 86140; 86200; 86235; 86431; 99202

== ENCOUNTER 2025-04-05 13:17 | Outpatient (AMB) | payer MEDICARE, SELFPAY ==
[2025-04-05 13:20] VITALS: BP 110/62; PULSE 104; O2SAT 98; BMI 30.8
--- NOTE | 2025-04-05 13:20 | MHC.OFFVIS ---
Vital Signs 04/05/25 13:20 Height 4 ft 7.5 in Weight 134 lb 14.766 oz BMI 30.8 BP 110/62 Blood Pressure Location Lt brachial Position Sitting Pulse 104 H Pulse Source Pulse Oximeter Pulse Oximetry (%) 98 Oxygen Delivery Method Room Air Intake Visit Reasons: Raynauds/internal ref Intake Note: New patient here to be seen for Raynauds. Accompanied by: Self / Same As Patient Allergies Penicillins Allergy (Verified 04/05/25 13:20) Hallucinations azithromycin (From Zithromax Z-Butch) Adverse Reaction (Verified 04/05/25 13:20) Stomach Upset cephalexin (From Keflex) Adverse Reaction (Verified 04/05/25 13:20) Stomach Upset azthromycin Adverse Reaction (Uncoded 03/15/25 15:34) Stomach Upset HPI HPI Raynauds/internal ref: Details: New patient visit. 2nd opinion for scleroderma. Hx Raynaud's syndrome for 30 years in hands triggered by cold. Merchandise Planning Manager Dr. Aponte with Scleroderma by looking at her hands 10/2024. She was referred to Dr. Epps java [email or web address] software engineer for evaluation for lung and heart disease associated with Raynaud's syndrome. She saw Dr. Sutton java j2ee software engineer [facility] who diagnosed her with scarring in lungs in the past. Recent CT chest did not show change but consistently showed scarring in the lungs. Her pulmonologists did not diagnosed her with interstitial lung disease. She had pulmonary function tests and reports that they need to be repeated because she required a lot of assistance. She will be following up with her pulmonologists. She had a rash in her scalp. Resolved with topical triamsinolone. GERD is not controlled. +dry eyes and dry mouth. Uses CPAP. +fatigue Denies fevers, dypsnea, pleurisy, oral ulces. She has had 3 miscarriages within 1st trimester. They were not consecutive. Denies history of DVT or PE. She recalls having TATA tested. He is unable to tell me if she has had any positive antibodies related to rheumatological disease. Raynauds is worse with winter. Her fingers turn white and blue. She is uncomfortable when it occurs. She gloves. Lesion on kidney being followed by urology. R TKR (Dr. Medrano). R rotator cuff tendon tear. No rheumatological family history. She denies drinking alcohol or smoking. [facility] Medical History (Updated 04/05/25 @ 16:08 by Jefry Sheikh MD) H/O scleroderma Basal cell carcinoma Surgical History S/P trigger finger release History of carpal tunnel release H/O arthroscopy of right knee Hx of arthroscopy of left knee Status post total right knee replacement Family History Mother Breast cancer Father Heart failure Other Breast cancer metastasized to bone Social History Housing: Condominium Alcohol intake: never Patient Tobacco Use Status: Never used Tobacco e-Cigarette/Vaping Use: Never Used service: No Current occupational status: retired Vision needs: No Physical Exam Vital Signs: Last Vital Signs Pulse 104 H 04/05/25 13:20 BP 110/62 04/05/25 13:20 Pulse Ox 98 04/05/25 13:20 Oxygen Delivery Method Room Air 04/05/25 13:20 BMI result Body Mass Index 30.8 Const Other: General: Comfortable CVS: RRR Respiratory: clear to auscultation bilaterally. Good respiratory effort Skin: No lesions seen Oral: She is able to open up her mouth spanning the width of 4 fingers. No sclerodactyly. No tightening of skin in upper extremities and lower extremities. Telangiectasia anterior chest present. She has seborrheic keratosis and lam angiomas on her back. No discoloration of fingertips or digital ulcers. MSK: No tender joints. Heberden nodes present. No synovitis. Normal range of motion of upper extremities and lower extremities. Results Reviewed Results Reviewed: Echocardiogram 12/22/2024 reveals preserved EF 60-65% there is mild aortic regurgitation. Pulmonary artery pressure could not be obtained. Assessment & Plan Assessment & Plan (1) Raynaud disease without gangrene: Comment: Thirty year history. Raynaud's phenomenon is conservatively managed and controlled at this time. It is active during cold temperatures at the end of fall and winter. She also has telangiectasia. She has history of scarring in lungs but has not been diagnosed with interstitial lung disease. At this time she does not meet criteria for limited cutaneous systemic sclerosis or diffuse cutaneous systemic sclerosis at this time. Code(s): I73.00 - Raynaud's syndrome without gangrene Category: Medical Plan: Labs ordered Requesting results of CT chest, pulmonary function test and clinic note of pulmonologists Dr. Epps from [facility] Return to clinic in 1-2 months to review results and for management of Raynaud's phenomenon (2) Telangiectasia: Code(s): I78.1 - Nevus, non-neoplastic Category: Medical Plan: See above Orders: Orders Cyclic Citrullinated Peptide Today H04.123 - Dry eye syndrome of bilateral lacrimal glands, I73.00 - Raynaud's syndrome without gangrene, I78.1 - Nevus, non-neoplastic, R68.2 - Dry mouth, unspecified Anti-Centromere B Antibodies Today H04.123 - Dry eye syndrome of bilateral lacrimal glands, I73.00 - Raynaud's syndrome without gangrene, I78.1 - Nevus, non-neoplastic, R68.2 - Dry mouth, unspecified RNA Polymerase III Ab Today H04.123 - Dry eye syndrome of bilateral lacrimal glands, I73.00 - Raynaud's syndrome without gangrene, I78.1 - Nevus, non-neoplastic, R68.2 - Dry mouth, unspecified Alanine Aminotransferase Today D72.819 - Decreased white blood cell count, unspecified, I73.00 - Raynaud's syndrome without gangrene, I78.1 - Nevus, non-neoplastic, M34.9 - Systemic sclerosis, unspecified, R68.2 - Dry mouth, unspecified C Reactive Protein Today D72.819 - Decreased white blood cell count, unspecified, I73.00 - Raynaud's syndrome without gangrene, I78.1 - Nevus, non-neoplastic, M34.9 - Systemic sclerosis, unspecified, R68.2 - Dry mouth, unspecified TATA Reflex Titer and Pattern Today H04.123 - Dry eye syndrome of bilateral lacrimal glands, I73.00 - Raynaud's syndrome without gangrene, I78.1 - Nevus, non-neoplastic, R68.2 - Dry mouth, unspecified Sjogren's Antibodies Today H04.123 - Dry eye syndrome of bilateral lacrimal glands, I73.00 - Raynaud's syndrome without gangrene, I78.1 - Nevus, non-neoplastic, R68.2 - Dry mouth, unspecified Rheumatoid Factor Today H04.123 - Dry eye syndrome of bilateral lacrimal glands, I73.00 - Raynaud's syndrome without gangrene, I78.1 - Nevus, non-neoplastic, R68.2 - Dry mouth, unspecified Scleroderma 70 Antibody Today H04.123 - Dry eye syndrome of bilateral lacrimal glands, I73.00 - Raynaud's syndrome without gangrene, I78.1 - Nevus, non-neoplastic, R68.2 - Dry mouth, unspecified SALOME 1 Antibody Today H04.123 - Dry eye syndrome of bilateral lacrimal glands, I73.00 - Raynaud's syndrome without gangrene, I78.1 - Nevus, non-neoplastic, R68.2 - Dry mouth, unspecified Complete Blood Count Auto Diff Today D72.819 - Decreased white blood cell count, unspecified, I73.00 - Raynaud's syndrome without gangrene, I78.1 - Nevus, non-neoplastic, M34.9 - Systemic sclerosis, unspecified, R68.2 - Dry mouth, unspecified Aspartate Amino Transferase Today D72.819 - Decreased white blood cell count, unspecified, I73.00 - Raynaud's syndrome without gangrene, I78.1 - Nevus, non-neoplastic, M34.9 - Systemic sclerosis, unspecified, R68.2 - Dry mouth, unspecified Creatinine Today D72.819 - Decreased white blood cell count, unspecified, I73.00 - Raynaud's syndrome without gangrene, I78.1 - Nevus, non-neoplastic, M34.9 - Systemic sclerosis, unspecified, R68.2 - Dry mouth, unspecified Erythrocyte Sedimentation Rate Today D72.819 - Decreased white blood cell count, unspecified, I73.00 - Raynaud's syndrome without gangrene, I78.1 - Nevus, non-neoplastic, M34.9 - Systemic sclerosis, unspecified, R68.2 - Dry mouth, unspecified Coding Level of Care Code New Pt Level 4 (46430) Diagnoses Raynaud disease without gangrene I73.00 Telangiectasia I78.1
--- OUTSIDE RECORDS SUMMARY | 2025-04-05 17:18 | XMS_ITS | Clinical Summary ---
Author Organization [facility] Address [address] [place] [address] Phone Care Team Providers Care Toaster Operator Name Role Phone Ebony Jarrett Primary Care Provider [phone] Encounters Date Type Department Care Team Description 02/21/2025 3:00 PM EDT - 02/21/2025 11:59 PM EDT Hospital [facility] at [address] [address] Encounter for screening mammogram for [...] Encounter for screening mammogram for breast cancer [facility] DEXA AXIAL SKELETON Routine 06/26/2022 3:59 [...] year. 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 TISSUE DENSITY: There are scattered [...] year. Mammography location[facility] at [address], [address] -------- FINAL REPORT -------- Dictated By: Ger Varghese Dictated Date: 02/22/2025 07:14 ET Assigned Physician: Ger Varghese Reviewed and Electronically Signed By: Ger Varghese Signed Date: 02/22/2025 07:19 ET Workstation ID: [id number] Transcribed By: Self Edit Transcribed Date: 02/22/2025 07:14 ET us Self Referral Sppl IMG BI PROCEDURES Final Resul t * MELINA DEXA AXIAL SKELETON (06/26/2022 3:59 PM EST) Anatomical Region Laterality Modality Mammography 06/26/2022 9:28 AM EST Narrative 06/26/2022 3:59 PM EST [facility] Diagnostic Imaging Department [address] [place] [address] Patient: MARITZA LINDQUIST /Age/Sex: 1950 - 72 - F Unit#: [id number] Location/Status: [facility]/REG CLI [facility]emonic[facility] Ordering Physician: CHIP TAO MD [facility] Dexa Axial Skeleton - 06/26/22 - 1019 [facility] Dexa Axial Skeleton INDICATION: POSTMENOPAUSAL Technique: Bone [...] IMPRESSION: Findings suggesting normal bone mineral density. [id number] Dictating Physician: UMAIR TAYLOR MD Electronically Signed by: UMAIR TAYLOR MD Dic Date/Time: 06/26/221557 Sign date/Time: 06/26/221558 Procedure Note Umair Taylor MD - 08/27/2023 [facility] Diagnostic Imaging Department [address] [place] [address] Patient: MARITZA LINDQUIST /Age/Sex: 1950 - 72 - F Unit#: [id number] Location/Status: [facility]/REG CLI Mnemonic/Ordering Site: [facility] Ordering Physician: CHIP TAO MD [facility] Dexa Axial Skeleton - 06/26/22 - 1019 [facility] Dexa Axial Skeleton INDICATION: POSTMENOPAUSAL Technique: Bone [...] IMPRESSION: Findings suggesting normal bone mineral density. [id number] Dictating Physician: UMAIR TAYLOR MD Electronically Signed by: UMAIR TAYLOR MD Dic Date/Time: 06/26/22 1558 Sign date/Time: 06/26/22 155 Chip Tao MD IMG BI PROCEDURES Final Result from Last 3 Months or Most Recently Relevant to Health Maintenance Insurance MEDICARE [facility] Care Teams Toaster Operator Relationship Specialty Start Date End Date Ebony Jarrett PA [address] [place] [address], [address] [place] [address] PCP - General 02/21/25
--- OUTSIDE RECORDS SUMMARY | 2025-04-05 17:18 | XMS_ITS | Clinical Summary ---
Author Organization [facility] Address [address] [place] [address] Care Team Providers Care Insulation Batting Machine Operator Name Role Phone Abraham Sutton MD Primary Care Provider [phone] Allergies Active Allergy Reactions Criticality Noted Date [...] MG CAPS Take by mouth. 0 Active [place]-3 Fatty Acids (FISH OIL) 600 MG CAPS [...] age to complete this topic Care Teams Insulation Batting Machine Operator Relationship Specialty Start Date End Date Abraham Sutton MD [address] [place] [address] PCP - General Internal Medicine 03/02/17
--- OUTSIDE RECORDS SUMMARY | 2025-04-05 17:18 | XMS_ITS | Clinical Summary ---
Author Organization [facility] Address [address] [address] Phone Care Team Providers Care Biomechanical Engineer Name Role Phone Abraham Sutton MD Primary Care Provider [phone] Allergies Active Allergy Reactions Criticality Noted Date [...] file Insurance MEDICARE PART A & B [facility] MEDEX SUPPLEMENT MEDICARE PART A & B [employer] MEDEX SUPPLEMENT MEDICARE PART A & B [employer] MEDEX SUPPLEMENT MEDICARE PART A & B [employer] MEDEX SUPPLEMENT MEDICARE PART A & B [employer] MEDEX SUPPLEMENT MEDICARE PART A & B [employer] MEDEX SUPPLEMENT MEDICARE PART A & B [employer] MEDEX SUPPLEMENT MEDICARE PART A & B [employer] MEDEX SUPPLEMENT MEDICARE PART A & B [employer] MEDEX SUPPLEMENT Member Subscriber Plan / Payer (Ef fective 2015-Present) Name:Pema Yancey Relation to Subscriber:Self Name:Pema Yancey Payer ID:[id number] ([employer]) Type:Indemnity Address: [address] [place] [id number] Care Teams Biomechanical Engineer Relationship Specialty Start Date End Date Abraham Sutton MD [address] [place] [address] [email or web address] PCP - General Internal Medicine 05/13/18 Additional Source Comments The information contained in this document represents components of the legal health record. It is not the complete legal health record.[facility]
--- OUTSIDE RECORDS SUMMARY | 2025-04-05 17:18 | XMS_ITS | Encounter Summary ---
Author Organization [facility] Address [address] [place] [address] [place] [address] Phone Care Team Providers Care Information Security Consultant Name Role Phone Abraham Sutton MD Primary Care Provider [phone] Encounter Details Date Type Department Care Team (Latest Contact Info) Description 06/17/2022 Transcribe Orders [facility] Laboratory [address] [place] [address] Cara Castillo NP [address] [place] [id number] [email or web address] Constipation, unspecified constipation type (Primary Dx); Change [...] EST) TSH 4.82(H) 0.27 - 4.20 uIU/mL [facility] Blood 06/17/2022 10:3 5 AM EST 06/17/2022 10:41 AM EST us Cara Sofia Jonathan INVESTOR RELATIONS SPECIALIST LAB BLOOD ORDERABLES Final Result [address] [address] * C-Reactive Protein (06/17/2022 10:35 AM EST) C REACTIVE PROTEIN <3.0 0.0 - 4.0 mg/L [facility] Blood 06/17/2022 10:3 5 AM EST 06/17/2022 10:41 AM EST Cara Castillo INVESTOR RELATIONS SPECIALIST LAB BLOOD ORDERABLES Final Result [address] [address] * (ABNORMAL) Comprehensive metabolic panel (06/17/2022 10:35 AM EST) SODIUM 136 133 - 146 mmol/L [facility] POTASSIUM 4.2 3.3 - 5.1 mmol/L [facility] CHLORIDE 101 96 - 108 mmol/L [facility] CO2 25 21 - 35 mmol/L [facility] BUN 22(H) 6 - 19 mg/dL [facility] CREATININE 0.80 0.5 - 1.5 mg/dL [facility] GLUCOSE 83 70 - 99 mg/dL [facility] ALBUMIN 4.4 3.9 - 4.8 g/dL [facility] TOTAL PROTEIN 7.2 6.5 - 8.0 g/dL [facility] CALCIUM 9.6 8.4 - 10.3 mg/dL [facility] ALKALINE PHOSPHATASE 66 39 - 117 U/L [facility] TOTAL BILIRUBIN 0.6 0.0 - 1.2 mg/dL [facility] AST 33 0 - 37 U/L [facility] ALT 18 0 - 40 U/L [facility] GLOBULIN 2.8 1 - 4.8 g/dL [facility] EGFR 78 >59 mL/min/1.7 3m2 [facility] Comment:Estimated glomerular filtration rate calculated using the CKD-EPI refit equation. ANION GAP 14 10 - 20 mmol/L [facility] Blood 06/17/2022 10:3 5 AM EST 06/17/2022 10:41 AM EST us Cara Castillo NP LAB BLOOD ORDERABLES Final Result [facility] [address] [place] [address] * (ABNORMAL) CBC and differential (06/17/2022 10:35 AM EST) WBC 2.57(L) 4.00 - 11.00 K/uL [facility] RBC 4.34 3.72 - 5.30 M/uL [facility] HGB 13.3 11.4 - 15.9 g/dL [facility] HCT 39.8 34.2 - 46.8 % [facility] PLT 170 140 - 430 K/uL [facility] MCV 91.7 78.0 - 97.0 fL [facility] MCH 30.6 25.0 - 33.0 pg [facility] MCHC 33.4 32.0 - 36.0 g/dL [facility] RDW 12.8 11.0 - 16.0 % [facility] MPV 11.9 8.4 - 12.8 fl [facility] DIFF METHOD Auto [facility] NEUTS 58.7 43.0 - 75.0 % [facility] LYMPHS 26.5 18.2 - 47.4 % [facility] MONOS 9.7 4.00 - 11.00 % [facility] EOS 3.5 0.0 - 8.0 % [facility] BASOS 1.6 0.0 - 2.0 % [facility] Granulocytes, immature (%) 0.0 0.0 - 0.9 % [facility] ABSOLUTE NEUTS 1.51(L) 1.80 - 7.70 K/uL [facility] ABSOLUTE LYMPHS 0.68(L) 1.00 - 3.10 K/uL [facility] ABSOLUTE MONOS 0.25 0.20 - 0.80 K/uL [facility] ABSOLUTE EOS 0.09 0.00 - 0.80 K/uL [facility] ABSOLUTE BASOS 0.04 0.00 - 0.09 K/uL [facility] Granulocytes, immature 0.00 0.00 - 0.05 K/uL [facility] Blood 06/17/2022 10:3 5 AM EST 06/17/2022 10:41 AM EST Caramando Penningtonkenneth Castillo INVESTOR RELATIONS SPECIALIST LAB BLOOD ORDERABLES Final Result Performing Organization Address [facility] de Phone Number [address] [address] * Immunoglobulin A (06/17/2022 10:35 AM EST) IgA 187 70 - 400 mg/dL [facility] Blood 06/17/2022 10:3 5 AM EST 06/17/2022 10:41 AM EST [facility] Castillo INVESTOR RELATIONS SPECIALIST LAB BLOOD ORDERABLES Final Result Performing Organization Address [facility] de Phone Number [address] [address] * Tissue transglutaminase IgA (06/17/2022 10:35 AM EST) TTG IGA ANTIBODY <1.2 <4.0 (Negative) U/mL [facility] Blood 06/17/2022 10:3 5 AM EST 06/17/2022 10:41 AM EST Cara Castillo INVESTOR RELATIONS SPECIALIST LAB BLOOD ORDERABLES Final Result Performing Organization Address [facility] de Phone Number [facility] [address] [place] [address] documented in this encounter Visit Diagnoses Diagnosis Constipation, unspecified constipation type- Primary Change in bowel habits Other symptoms involving digestive system documented in this encounter Care Teams Information Security Consultant Relationship Specialty Start Date End Date Abraham Sutton MD [address] [place] [address] [email or web address] PCP - General Internal Medicine 10/19/18 documented as of this encounter Additional Source Comments The information contained in this document represents components of the legal health record. It is not the complete legal health record.[facility]
--- OUTSIDE RECORDS SUMMARY | 2025-04-05 17:19 | XMS_ITS | Patient Health Record ---
Author Organization [facility] an[place]y [place] Address [address] [facility] [place] [address] Care Team Providers Care Ointment Mill Tender Name Role Phone Abraham Sutton Primary Care Provider Unavailabl e Bc Elle Unavailable [phone] Allergies Allergen (clinical drug ingredient) Drug/Non Drug [...] primary osteoarthritis of the ankle and/or foot (058314103) Primary osteoarthrit is, right ankle and foot (M19.071) Active confirmed Problem Localized, primary osteoarthritis of the ankle and/or foot (277302205) Primary osteoarthrit is, left ankle and foot (M19.072) Active confirmed Problem Acquired hammer toe of right foot ([id number]) Other hammer toe(s) (acquired), right foot (M20.41) Active confirmed Problem Acquired hammer toe of left foot ([id number]) Other hammer toe(s) (acquired), left foot (M20.42) Active confirmed Plan Of Treatment No Information Insurance Providers Payer Name Payer Address Payer Phone Subscriber Number Group Number Insured Name Patient Relationship to Insured Coverage Start Date Coverage End Date Medicare National Govt Svcs Inc [address] [place] [address] [id number] Pema Yancey Self - patient is the insured Med[employer] Blue Shield [address] [place] [address] [phone] [id number] Pema Yancey Self - patient is [...]
== END 2025-04-05 14:19 | disposition home or self-care (01) ==
LOC: HO.RHES 13:17
PROVIDERS: Visit Provider Internal Medicine Rheumatology
DX: I73.00 Raynaud's syndrome without gangrene (principal); I78.1 Nevus, non-neoplastic
CPT/HCPCS: 99204

== ENCOUNTER 2025-04-19 13:50 | Outpatient (AMB) | payer MEDICARE, SELFPAY ==
[2025-04-19 14:01] VITALS: BP 130/70; PULSE 84; O2SAT 99; BMI 27.4
--- NOTE | 2025-04-19 14:01 | A.OFFVIS_ITS ---
Vital Signs 04/19/25 14:01 Height 4 ft 11 in Weight 135 lb 9.349 oz BMI 27.4 BP 130/70 Blood Pressure Location Lt brachial Position Sitting Pulse 84 Pulse Source Pulse Oximeter Pulse Oximetry (%) 99 Oxygen Delivery Method Room Air Intake Visit Reasons: discuss labs Intake Note: Patient here to be seen for Raynauds. Allergies Penicillins Allergy (Verified 04/19/25 14:02) Hallucinations azithromycin (From Zithromax Z-Butch) Adverse Reaction (Verified 04/19/25 14:02) Stomach Upset cephalexin (From Keflex) Adverse Reaction (Verified 04/19/25 14:02) Stomach Upset azthromycin Adverse Reaction (Uncoded 03/15/25 15:34) Stomach Upset HPI HPI discuss labs: Details: She has chronic dry eyes and dry mouth. Dry mouth is worse than dry eyes. She had bilateral cataract surgery. After right eye cataract surgery vision worsened. She sees Dr. Cardenas. She is currently on Restasis. She does not know why she is on Restasis. [facility] Medical History (Updated 04/19/25 @ 15:45 by Jefry Sheikh MD) H/O scleroderma Basal cell carcinoma Surgical History S/P trigger finger release History of carpal tunnel release H/O arthroscopy of right knee Hx of arthroscopy of left knee Status post total right knee replacement Family History Mother Breast cancer Father Heart failure Other Breast cancer metastasized to bone Social History Housing: Condominium Alcohol intake: never Patient Tobacco Use Status: Never used Tobacco e-Cigarette/Vaping Use: Never Used service: No Current occupational status: retired Vision needs: No Physical Exam Vital Signs: Last Vital Signs Pulse 84 04/19/25 14:01 BP 130/70 04/19/25 14:01 Pulse Ox 99 04/19/25 14:01 Oxygen Delivery Method Room Air 04/19/25 14:01 BMI result Body Mass Index 27.4 Const Other: General: Comfortable CVS: RRR Respiratory: clear to auscultation bilaterally. Good respiratory effort Skin: Telangiectasia anterior chest. No sclerodactyly. No tightening of skin in upper extremities and lower extremities. No discoloration of fingertips or digital ulcers. MSK: No tender joints. Heberden nodes present. No synovitis. Normal range of motion of upper extremities and lower extremities. Results Reviewed Results Reviewed: Labs reviewed from 09/06/2024 Dr. Epps. She has negative ANCA, SSA/SSB/rheumatoid factor/Scl 70, TATA 1:320 CT chest without contrast 12/13/2024 reveals unchanged mild interstitial abnormality. Assessment & Plan Assessment & Plan (1) Positive TATA (antinuclear antibody): Comment: High titer positive 1: 1280, 1:320 with low titer positive rheumatoid factor. Negative SSA/SSB. She has clinical symptoms of chronic dry eyes and dry mouth, telangiectasia and Raynaud's phenomenon. CT chest reveals mild interstitial lung disease. She does not have clinical findings of systemic sclerosis, which was discussed with patient. Antibody profile of elevated TATA and rheumatoid factor can be seen in Sjogren syndrome. She is currently being treated for dry eyes with Restasis. We discussed next steps in diagnostic evaluation for Sjogren syndrome. Answered patient's questions to her satisfaction. Code(s): R76.8 - Other specified abnormal immunological findings in serum Category: Medical Plan: Follow up with Ophthalmology for evaluation of keratoconjunctivitis sicca and Nicky's test. Continue dry eye management with Ophthalmology. I will consider minor salivary gland biopsy at follow-up I have requested pulmonology note from Dr. Epps [facility] Return to clinic in 3 months (2) Raynaud disease without gangrene: Comment: Thirty year history. Raynaud's phenomenon is conservatively managed and controlled at this time. Code(s): I73.00 - Raynaud's syndrome without gangrene Category: Medical Plan: Continue conservative management Return to clinic in 3 months or sooner if needed (3) Sicca syndrome: Code(s): M35.00 - Sjogren syndrome, unspecified Category: Medical Plan: See above Coding Level of Care Code Est Pt Level 4 (93573) Complex EM visit Add On G2211 Diagnoses Positive TATA (antinuclear antibody) R76.8 Raynaud disease without gangrene I73.00 Sicca syndrome M35.00
--- OUTSIDE RECORDS SUMMARY | 2025-04-19 18:21 | XMS_ITS | Encounter Summary ---
Author Organization [facility] Address [address] [place] [address] [place] [address] Phone Care Team Providers Care Methods Specialist Engineer Name Role Phone Abraham Sutton MD Primary Care Provider [phone] Encounter Details Date Type Department Care Team (Latest Contact Info) Description 06/17/2022 Transcribe Orders [facility] Laboratory [address] [place] [address] Cara Castillo CNP [address] [place] [address] [email or web address] Constipation, unspecified constipation type (Primary Dx); Change [...] EST) TSH 4.82(H) 0.27 - 4.20 uIU/mL [facility] Blood 06/17/2022 10:3 5 AM EST 06/17/2022 10:41 AM EST us Cara Sofia Jonathan BILL CLERK LAB BLOOD ORDERABLES Final Result [address] [address] * C-Reactive Protein (06/17/2022 10:35 AM EST) C REACTIVE PROTEIN <3.0 0.0 - 4.0 mg/L [facility] Blood 06/17/2022 10:3 5 AM EST 06/17/2022 10:41 AM EST Cara Castillo [facility] LAB BLOOD ORDERABLES Final Result [address] [address] * (ABNORMAL) Comprehensive metabolic panel (06/17/2022 10:35 AM EST) SODIUM 136 133 - 146 mmol/L [facility] POTASSIUM 4.2 3.3 - 5.1 mmol/L [facility] CHLORIDE 101 96 - 108 mmol/L [facility] CO2 25 21 - 35 mmol/L [facility] BUN 22(H) 6 - 19 mg/dL [facility] CREATININE 0.80 0.5 - 1.5 mg/dL [facility] GLUCOSE 83 70 - 99 mg/dL [facility] ALBUMIN 4.4 3.9 - 4.8 g/dL [facility] TOTAL PROTEIN 7.2 6.5 - 8.0 g/dL [facility] CALCIUM 9.6 8.4 - 10.3 mg/dL [facility] ALKALINE PHOSPHATASE 66 39 - 117 U/L [facility] TOTAL BILIRUBIN 0.6 0.0 - 1.2 mg/dL [facility] AST 33 0 - 37 U/L [facility] ALT 18 0 - 40 U/L [facility] GLOBULIN 2.8 1 - 4.8 g/dL [facility] EGFR 78 >59 mL/min/1.7 3m2 [facility] Comment:Estimated glomerular filtration rate calculated using the CKD-EPI refit equation. ANION GAP 14 10 - 20 mmol/L [facility] Blood 06/17/2022 10:3 5 AM EST 06/17/2022 10:41 AM EST us Cara Castillo [facility] LAB BLOOD ORDERABLES Final Result [facility] [address] [place] [address] * (ABNORMAL) CBC and differential (06/17/2022 10:35 AM EST) WBC 2.57(L) 4.00 - 11.00 K/uL [facility] RBC 4.34 3.72 - 5.30 M/uL [facility] HGB 13.3 11.4 - 15.9 g/dL [facility] HCT 39.8 34.2 - 46.8 % [facility] PLT 170 140 - 430 K/uL [facility] MCV 91.7 78.0 - 97.0 fL [facility] MCH 30.6 25.0 - 33.0 pg [facility] MCHC 33.4 32.0 - 36.0 g/dL [facility] RDW 12.8 11.0 - 16.0 % [facility] MPV 11.9 8.4 - 12.8 fl [facility] DIFF METHOD Auto [facility] NEUTS 58.7 43.0 - 75.0 % [facility] LYMPHS 26.5 18.2 - 47.4 % [facility] MONOS 9.7 4.00 - 11.00 % [facility] EOS 3.5 0.0 - 8.0 % [facility] BASOS 1.6 0.0 - 2.0 % [facility] Granulocytes, immature (%) 0.0 0.0 - 0.9 % [facility] ABSOLUTE NEUTS 1.51(L) 1.80 - 7.70 K/uL [facility] ABSOLUTE LYMPHS 0.68(L) 1.00 - 3.10 K/uL [facility] ABSOLUTE MONOS 0.25 0.20 - 0.80 K/uL [facility] ABSOLUTE EOS 0.09 0.00 - 0.80 K/uL [facility] ABSOLUTE BASOS 0.04 0.00 - 0.09 K/uL [facility] Granulocytes, immature 0.00 0.00 - 0.05 K/uL [facility] Blood 06/17/2022 10:3 5 AM EST 06/17/2022 10:41 AM EST Cara Castillo [facility] LAB BLOOD ORDERABLES Final Result Performing Organization Address [facility] de Phone Number [address] [address] * Immunoglobulin A (06/17/2022 10:35 AM EST) IgA 187 70 - 400 mg/dL [facility] Blood 06/17/2022 10:3 5 AM EST 06/17/2022 10:41 AM EST [facility] LAB BLOOD ORDERABLES Final Result Performing Organization Address [facility] Phone Number [address] [address] * Tissue transglutaminase IgA (06/17/2022 10:35 AM EST) TTG IGA ANTIBODY <1.2 <4.0 (Negative) U/mL [facility] Blood 06/17/2022 10:3 5 AM EST 06/17/2022 10:41 AM EST [facility] LAB BLOOD ORDERABLES Final Result Performing Organization Address [facility] de Phone Number [facility] [address] [place] [address] documented in this encounter Visit Diagnoses Diagnosis Constipation, unspecified constipation type- Primary Change in bowel habits Other symptoms involving digestive system documented in this encounter Care Teams Methods Specialist Engineer Relationship Specialty Start Date End Date Abraham Sutton MD [address] [place] [address] PCP - General Internal Medicine 05/13/18 documented as of this encounter Additional Source Comments The information contained in this document represents components of the legal health record. It is not the complete legal health record.[facility]
--- OUTSIDE RECORDS SUMMARY | 2025-04-19 18:21 | XMS_ITS | Patient Health Record ---
Author Organization [facility] antony [place] Address [address] [facility] [place] [address] Care Team Providers Care Director Of Email Marketing Name Role Phone Abraham Stuton Primary Care Provider Unavailabl e Bc Elle Unavailable [phone] Allergies Allergen (clinical drug ingredient) Drug/Non Drug [...] primary osteoarthritis of the ankle and/or foot (714015366) Primary osteoarthrit is, right ankle and foot (M19.071) Active confirmed Problem Localized, primary osteoarthritis of the ankle and/or foot (021453188) Primary osteoarthrit is, left ankle and foot (M19.072) Active confirmed Problem Acquired hammer toe of right foot ([id number]) Other hammer toe(s) (acquired), right foot (M20.41) Active confirmed Problem Acquired hammer toe of left foot ([id number]) Other hammer toe(s) (acquired), left foot (M20.42) Active confirmed Plan Of Treatment No Information Insurance Providers Payer Name Payer Address Payer Phone Subscriber Number Group Number Insured Name Patient Relationship to Insured Coverage Start Date Coverage End Date Medicare National Govt Svcs Inc [address] [facility] [place] [address] [id number] Pema Yancey Self - patient is the insured [employer] Blue Shield [address] [place] [address] [id number] Pema Yancey Self - patient is [...]
--- OUTSIDE RECORDS SUMMARY | 2025-04-19 18:21 | XMS_ITS | Clinical Summary ---
Author Organization [facility] Address [address] [place] [address] Care Team Providers Care Paper Reel Operator Name Role Phone Abraham Sutton MD Primary Care Provider [phone] Allergies Active Allergy Reactions Criticality Noted Date [...] MG CAPS Take by mouth. 0 Active Truchas-3 Fatty Acids (FISH OIL) 600 MG CAPS [...] age to complete this topic Care Teams Paper Reel Operator Relationship Specialty Start Date End Date Abraham Sutton MD [address] [place] [address] PCP - General Internal Medicine 03/02/17
--- OUTSIDE RECORDS SUMMARY | 2025-04-19 18:21 | XMS_ITS | Clinical Summary ---
Author Organization [facility] Address [address] [address] Phone Care Team Providers Care Cutter Aluminum Sheet Name Role Phone Abraham Sutotn MD Primary Care Provider [phone] Allergies Active Allergy Reactions Criticality Noted Date [...] file Insurance MEDICARE PART A & B [facility] MEDEX SUPPLEMENT MEDICARE PART A & B [employer] MEDEX SUPPLEMENT MEDICARE PART A & B [employer] MEDEX SUPPLEMENT MEDICARE PART A & B [employer] MEDEX SUPPLEMENT MEDICARE PART A & B [employer] MEDEX SUPPLEMENT MEDICARE PART A & B [employer] MEDEX SUPPLEMENT MEDICARE PART A & B [employer]UE [employer] MEDEX SUPPLEMENT MEDICARE PART A & B [employer] MEDEX SUPPLEMENT MEDICARE PART A & B [employer] CROSS MEDEX SUPPLEMENT Member Subscriber Plan / Payer (Ef fective 2015-Present) Name:Pema Yancey Relation to Subscriber:Self Name:Pema Yancey Payer ID:[id number] (NAIC) Type:Indemnity Address: [address] [place] [id number] Care Teams Cutter Aluminum Sheet Relationship Specialty Start Date End Date Abraham Sutton MD [address] [place] [address] [email or web address] PCP - General Internal Medicine 05/13/18 Additional Source Comments The information contained in this document represents components of the legal health record. It is not the complete legal health record.[facility]
--- OUTSIDE RECORDS SUMMARY | 2025-04-19 18:21 | XMS_ITS | Data Portability ---
Author Organization [place] [facility] Mandy Shoemaker [address] [place] Address [address] [place] [address] Care Team Providers Care Distilling Department Supervisor Name Role Phone SEBASTIÁN BATISTA Primary Care [...] Patient verbalizes understanding and agreement with plan. [email or web address] Not available 05/06/2023 13:13:32 Plan of Treatment Reminders Order Date Submit Date Provider Last Modified By Organization Details Last Modified Time Details Appointments None recorded. Lab None recorded. Referral None recorded. Procedures None recorded. Surgeries None recorded. Imaging XR, shoulder, 2 or more view 023 023 [email or web address] [facility], [address], [place], [address], 16:11:58 Medication Orders Synvisc-O ne 48 mg/6 mL intra-art icular syringe 023 [email or web address] [id number], [address] [place], [address], 14:52:52 Patient TargetsNo targets recorded. Patient Instructions Encounter Date Encounter Id Patient Instructions Last Modified By Organization Details Last Modified Time 12/11/2022 [id number] You have been pr ovided with a [...] following the injection. This is called a shelbie thomas . To help minimize the chances of this, please see the post-injection instructions above. There is a less than 1% chance of an infection. If you notice any signs of infection (redness, warmth, drainage, fever greater than 100 degrees) please call our office or contact us through the portal [facility]. [email or web address] Not available 12/11/2022 14:08:34 05/03/2023 [id number] views of the r ight shoulder were obtained today 05/03/2023 in the [place] office. Mild glenohumeral joint space narrowing. Mild degenerative changes of the glenoid as well as the AC joint. On the oblique view there is a small projection off the lateral edge of the acromion, osteophyte vs os acromiale. Type I acromion. No acute fracture or dislocation. Findings: Mild degenerative changes. Interpreted by: Nata Aquino PA-C [email or web address] Not available 05/06/2023 13:10:39 Reason for Referral None Reported. Problems Name Problem SNOMED Code Status Onset Date Resolution Date Notes Provider Name and Address Organization Details Recorded Time Rupture of rotator cuff of right shoulder [id number] 03 Active 2022 NATA AQUINO PA-C [address], [place], [address], [place] [facility] 3 12:57:56 Problem Notes None recorded. Procedures Surgical History Date Name Laterality Status Provider Name and Address Organization Details Recorded Time 12/11/2022 Synvisc-On e Knee Inj completed ERYN BAEZ PA-C [address], [place], [address], [place] [facility] 12/11/2022 14:37:46 Imaging Results None recorded. Procedure Notes None recorded. Medical Equipment None Reported. Allergies Allergen ID Allergen Name Allergen Category Reaction Reaction Severity Criticality Documentation Date Start Date Code Code System Note Provider Name and Address Organization Details Recorded Time 84853 erythromy lulu medicatio n Not available Not available Not available 04/17/20252016 4053 RxNorm Not Available [facility] 01:16:11 96130 Product containin g penicilli n (product) medicatio n Not available Not available Not available 04/17/20252016 06738 8001 SNOMED Not Available [facility] 5 01:16:11 Medications Name Sig Start Date Stop Date [...] completed Not Available Not Available Not Available clindamycin HCl 300 mg capsule Take 2 capsules 1 hour prior to dental appointme nt or colonosco py 2016 active Not Available Not Available Not Avai lable azithromyci n 250 mg tablet TAKE 2 TABLETS BY MOUTH TODAY, THEN TAKE 1 TABLET DAILY FOR 4 DAYS 05/03 completed Not Available Not Available Not Available tolterodine ER 4 mg capsule,ext ended release 24 hr 2016 active Not Available Not Available Not Avai lable tyrosine 500 mg capsule Take by mouth. active Not Available Not Available No t Available clonazepam 1 mg tablet TAKE 1 TABLET BY MOUTH EVERY MORNING AND TAKE 1 & 1/2 - 2 TABLETS AT BEDTIME active Not Available Not Available No t Available calcium 600 mg (as carbonate)- vitamin D3 5 mcg (200 unit) tablet Take by mouth. active Not Available Not Available No t Available ciprofloxac in 500 mg tablet Take 1 tab one hour prior to any dental work 2020 active Not Available Not Available Not Avai lable vancomycin 125 mg capsule TAKE 1 CAPSULE BY MOUTH TWICE A DAY WITH FOOD active Not Available Not Available No t Available ketorolac 0.5 % eye drops INSTILL 1 DROP INTO AFFECTED EYE 3 TIMES A DAY DIRECTED START 2 DAYS PRIOR TO SURGERY. TAPER active Not Available Not Available No t Available venlafaxine 100 mg tablet Take 100 mg by mouth 2 (two) times a day. active Not Available Not Available No t Available cephalexin 500 mg capsule TAKE 1 CAPSULE BY MOUTH 4 TIMES A DAY FOR 5 DAYS active Not Available Not Available No t Available Effexor XR 150 mg capsule,ext ended release Take 1 capsule every day by oral route. active Not Available Not Available No t Available ascorbic acid (vitamin C) 500 mg chewable tablet Take 500 mg by mouth daily. active Not Available Not Available No t Available bisacodyl 5 mg tablet,andrew yed release TAKE 4 TABLETS ONCE FOR 1 DAY NEEDED 05/03 completed Not Available Not Available Not Available gabapentin 100 mg capsule Take 1 capsule (100 mg total) by mouth 3 (three) times a day for 30 days. 07/23 completed Not Available Not Available Not Available [...] Not Available Not Available No t Available estradiol [address] vaginally . active Not Available Not Available No t Available cetirizine 10 mg capsule 2019 active Not Available Not Available Not Avai lable loratadine 10 mg capsule Take by mouth. active Not Available Not Available No t Available mirabegron ER 25 mg tablet,exte nded release 24 hr active Not Available Not Available Not Available hyaluronate sodium, stabilized 88 mg/4 mL intra-artic ular syringe 05/26 completed Not Available Not Available Not Available Readi-Cat 2 2 % (w/v) oral suspension DRINK DIRECTED active Not Available Not Available No t Available hyaluronate sodium, stabilized 60 mg/3 mL intra-artic ular syringe 11/18 completed Not Available Not Available Not Available Gemtesa 75 mg tablet active Not [...] Diagnosis SNOMED-CT Code Diagnosis ICD10 Code Diagnosis IMO Codes Diagnosis Note [id number] ERYN BAEZ PA-C [facility] [address] [address] 12/11/2022 14:04:37 12/11/2022 14:29:36 Osteoarthritis of left knee joint [id number] 32003 M17.12 [id number] NATA AQUINO PA-C [facility] [address] [address] 05/03/2023 13:26:58 05/03/2023 14:23:33 Pain of right shoulder joint [id number] 1040660 M25.511 Rupture of rotator cuff of right shoulder [id number] M75.101 Health Concerns Section Related Observation LastModified by Organization Detai ls LastModified Time None Recorded Concern Status LastModified by Organization Details LastModified Time None Recorded Advance Directives Directive None Recorded Payers Insurance Date Sequence Insurance Name Policy Number Policy Mckinnon Covered Member ID Mckinnon Member ID Guarantor Name 05/19/2023 2 [place] [id number] Pema Bc [id number] Pema Bc 05/04/2023 1 [place] [employer] Pema Yancey [id number] Pema [employer] Notes Date Note Type Note Provider Name and Address Organization Details Recorded Time 12/11/2022 text/html This is a pleasant 72-year-old female here for Synvisc 1 injection [...] her stretching exercises. ERYN BAEZ PA-C [address] [facility],[address], [place], [address], [place] [facility] 12/11/2022 14:38:56 05/03/2023 text/html ROS as noted in the HPI Pleasant 73-year-old female presents to the office [...] retired. Never smoker. NATA AQUINO PA-C [address] [facility],[address], [place], [address], [place] [facility] 05/06/2023 13:13:58 OBGyn Episode No OBEpisode recorded.
== END 2025-04-19 14:50 | disposition home or self-care (01) ==
LOC: HO.RHES 13:51
PROVIDERS: Visit Provider Internal Medicine Rheumatology
DX: R76.8 Other specified abnormal immunological findings in serum (principal); I73.00 Raynaud's syndrome without gangrene; M35.00 Sjogren syndrome, unspecified
CPT/HCPCS: 99214; G2211

== ENCOUNTER → 2025-04-19 13:50 | Outpatient (BNVA) | payer MEDICARE, SELFPAY | PROVIDERS: Visit Provider Internal Medicine Rheumatology | DX: R76.8 Other specified abnormal immunological findings in serum (principal); I73.00 Raynaud's syndrome without gangrene; M35.00 Sjogren syndrome, unspecified | CPT/HCPCS: 99212 ==

== ENCOUNTER → 2025-04-27 15:06 | Outpatient (BNV) | payer MEDICARE, SELFPAY | PROVIDERS: Visit Provider Internal Medicine | DX: D72.819 Decreased white blood cell count, unspecified (principal); D69.6 Thrombocytopenia, unspecified | CPT/HCPCS: 99204; G2211 ==

== ENCOUNTER 2025-06-05 11:10 | Outpatient (AMB) | payer MEDICARE, SELFPAY ==
[2025-06-05 11:12] VITALS: BP 108/68; PULSE 91; TEMP 36.3; O2SAT 90; BMI 27.1
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
[2025-06-05 11:49] VITALS: O2SAT 99
--- OUTSIDE RECORDS SUMMARY | 2025-06-05 13:20 | XMS_ITS | Patient Health Record ---
Author Organization [facility] antony [place] Address [address] [place] [address] Care Team Providers Care Real Estate Management Specialist Name Role Phone Abraham Sutton Primary Care Provider Unavailabl e Bc Elle Unavailable [phone] Allergies Allergen (clinical drug ingredient) Drug/Non Drug [...] primary osteoarthritis of the ankle and/or foot (392352557) Primary osteoarthrit is, right ankle and foot (M19.071) Active confirmed Problem Localized, primary osteoarthritis of the ankle and/or foot (150301296) Primary osteoarthrit is, left ankle and foot (M19.072) Active confirmed Problem Acquired hammer toe of right foot (6309989831407895) Other hammer toe(s) (acquired), right foot (M20.41) Active confirmed Problem Acquired hammer toe of left foot (3581237274890726) Other hammer toe(s) (acquired), left foot (M20.42) Active confirmed Plan Of Treatment No Information Insurance Providers Payer Name Payer Address Payer Phone Subscriber Number Group Number Insured Name Patient Relationship to Insured Coverage Start Date Coverage End Date Medicare National Govt Svcs Inc [address] [place] [address] [id number] Pema Yancey Self - patient is the insured [employer] Blue Shield [address] [place] [address] [id number] Pema Yancey Self - patient is [...]
--- OUTSIDE RECORDS SUMMARY | 2025-06-05 13:20 | XMS_ITS | Clinical Summary ---
Author Organization [facility] Address [address] [place] [address] Phone Care Team Providers Care Franchise Field Consultant Name Role Phone Ebony Jarrett Primary Care Provider [phone] Surgical History Surgery Date Site/Laterality Comments KNEE [...] Health Maintenance Due Date Last Done Comments Colorectal Cancer Screening: Colonoscopy 1950 Pneumococcal Vaccine: 50+ Years (2 of 2 - PCV) 03/25/2017 03/25/2016 Zoster Vaccines (2 of 2) 06/05/2019 04/10/2019 Falls Risk Assessment 07/03/2022 Hepatitis C Screening 07/03/2022 Medicare Annual Wellness Visit 07/03/2022 Social Influencers of Health Screening 07/03/2022 Depression Screening 07/26/2024 COVID-19 Vaccine ( season) 2025 08/18/2024, 04/23/2023, 04/10/2022, Additional history [...] Encounter for screening mammogram for breast cancer RABIA DEXA AXIAL SKELETON Routine 06/26/2022 3:59 PM [...] year. 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 TISSUE DENSITY: There are scattered [...] year. [facility]amm[facility] location: [facility] [address] [place], [address] -------- FINAL REPORT -------- Dictated By: Ger Varghese Dictated Date: 02/22/2025 07:14 ET Assigned Physician: Ger Varghese Reviewed and Electronically Signed By: Ger Varghese Signed Date: 02/22/2025 07:19 ET Workstation ID: [id number] Transcribed By: Self Edit Transcribed Date: 02/22/2025 07:14 ET us Self Referral Sppl IMG BI PROCEDURES Final Resul t * RABIA DEXA AXIAL SKELETON (06/26/2022 3:59 PM EST) Anatomical Region Laterality Modality Mammography 06/26/2022 9:28 AM EST Narrative 06/26/2022 3:59 PM EST [facility] Diagnostic Imaging Department [address] [place] [address] Patient: HECTOR LINDQUISTCESIA Best/Age/Sex: 1950 - 72 - F Unit#: [id number] Location/Status: SPDIMAM/REG CLI Mnemonic/Ordering Site: [facility] Order[place] Physician: CHIP TAO MD [facility] Dexa Axial Skeleton - 06/26/22 - 1018 [facility] Dexa Axial Skeleton INDICATION: POSTMENOPAUSAL Technique: Bone [...] IMPRESSION: Findings suggesting normal bone mineral density. [id number] Dictating Physician: UMAIR TAYLOR MD Electronically Signed by: UMAIR TAYLOR MD Dic Date/Time: 06/26/221557 Sign date/Time: 06/26/221558 Procedure Note Umair Taylor MD - 08/27/2023 [facility] Diagnostic Imaging Department [address] [place] [address] Patient: LEXAMARITZA Best/Age/Sex: 1950 - 72 - F Unit#: [id number] Location/Status: SPDIMAM/REG CLI Mnemonic/Ordering Site: [facility]/SPMAM Ordering Physician: CHIP TAO MD Rabia Dexa Axial Skeleton - 06/26/22 - 1019 [facility] Dexa Axial Skeleton INDICATION: POSTMENOPAUSAL Technique: Bone [...] IMPRESSION: Findings suggesting normal bone mineral density. [id number] Dictating Physician: UMAIR TAYLOR MD Electronically Signed by: UMAIR TAYLOR MD Dic Date/Time: 06/26/221557 Sign date/Time: 06/26/221558 Chip Tao MD IMG BI PROCEDURES Final Result from Last 3 Months or Most Recently Relevant to Health Maintenance Insurance MEDICARE [facility] Care Teams Franchise Field Consultant Relationship Specialty Start Date End Date Ebony Jarrett PA [address] [place] [address], [address] [place] [address] PCP - General 02/21/25
--- OUTSIDE RECORDS SUMMARY | 2025-06-05 13:20 | XMS_ITS | Clinical Summary ---
Author Organization [facility] Address [address] [address] Phone Care Team Providers Care Fiberglass Insulation Installer Name Role Phone Abraham Sutton MD Primary Care Provider [phone] Allergies Active Allergy Reactions Criticality Noted Date [...] file Insurance MEDICARE PART A & B [facility] MEDEX SUPPLEMENT MEDICARE PART A & B [employer] MEDEX SUPPLEMENT MEDICARE PART A & B [employer] MEDEX SUPPLEMENT MEDICARE PART A & B [employer] MEDEX SUPPLEMENT MEDICARE PART A & B [employer] MEDEX SUPPLEMENT MEDICARE PART A & B [employer] MEDEX SUPPLEMENT MEDICARE PART A & B [employer]UE [employer] MEDEX SUPPLEMENT MEDICARE PART A & B [employer] MEDEX SUPPLEMENT MEDICARE PART A & B [employer] CROSS MEDEX SUPPLEMENT Member Subscriber Plan / Payer (Ef fective 2015-Present) Name:Pema Yancey Relation to Subscriber:Self Name:Pema Yancey Payer ID:[id number] (NAIC) Type:Indemnity Address: [address] [place] [id number] Care Teams Fiberglass Insulation Installer Relationship Specialty Start Date End Date Abraham Sutton MD [address] [place] [address] PCP - General Internal Medicine 05/13/18 Additional Source Comments The information contained in this document represents components of the legal health record. It is not the complete legal health record.[facility]
--- OUTSIDE RECORDS SUMMARY | 2025-06-05 13:20 | XMS_ITS | Data Portability ---
Author Organization [facility] Mandy Shoemaker [place] Address [address] [place] [address] Care Team Providers Care Investigation Lieutenant Name Role Phone SEBASTIÁN BATISTA Primary Care [...] view 023 023 agustin 3 [facility], [address], [address], [place], [address], 16:11:58 Medication Orders Synvisc-O ne 48 mg/6 mL intra-art icular syringe 023 [email or web address] [id number], [address] [place], [address], 14:52:52 Patient TargetsNo targets recorded. Patient Instructions Encounter Date Encounter Id Patient Instructions Last Modified By Organization Details Last Modified Time 12/11/2022 [id number] You have been pr ovided with a [...] ROCIO. [email or web address] Not available 12/11/2022 14:08:34 05/03/2023 [id number] 3 views of the r ight shoulder were obtained today 05/03/2023 in the [place] office. Mild glenohumeral joint space narrowing. Mild [...] Rupture of rotator cuff of right shoulder [id number] 03 Active 2022 NATA AQUINO PA-C [address], [place], [address], [place] [facility], P 3 12:57:56 Problem Notes None recorded. Procedures Surgical History Date Name Laterality Status Provider Name and Address Organization Details Recorded Time 12/11/2022 Synvisc-On e Knee Inj completed ERYN BAEZ PA-C [address], [place], [address], [place] [facility], [facility] 12/11/2022 14:37:46 Imaging Results None recorded. Procedure Notes None recorded. Medical Equipment None Reported. Allergies Allergen ID Allergen Name Allergen Category Reaction Reaction Severity Criticality Documentation Date Start Date Code Code System Note Provider Name and Address Organization Details Recorded Time 98913 erythromy lulu medicatio n Not available Not available Not available 04/17/20252016 4053 RxNorm Not Available [facility] 01:16:11 86144 Product containin g penicilli n (product) medicatio n Not available Not available Not available 04/17/20252016 29824 8001 SNOMED Not Available [facility] 5 01:16:11 Medications Name Sig Start Date [...] ICD10 Code Diagnosis IMO Codes Diagnosis Note [id number] ERYN BAEZ PA-C [facility] [address] [address] 12/11/2022 14:04:37 12/11/2022 14:29:36 Osteoarthritis of left knee joint 0954599217 38617 M17.12 [id number] NATA AQUINO PA-C [facility] [address] [address] 05/03/2023 13:26:58 05/03/2023 14:23:33 Pain of right shoulder joint 8898226768 4538800 M25.511 Rupture of rotator cuff of right shoulder 1272148470 6661667 M75.101 Health Concerns Section Related Observation LastModified by Organization Detai ls LastModified Time None Recorded Concern Status LastModified by Organization Details LastModified Time None Recorded Advance Directives Directive None Recorded Payers Insurance Date Sequence Insurance Name Policy Number Policy Mckinnon Covered Member ID Mckinnon Member ID Guarantor Name 05/19/2023 2 [place] [id number] Pema Bc [id number] Pema Bc 05/04/2023 1 [place]OVERNMENT [place] Pema Yancey [id number] Pema Bc Notes Date Note Type [...] her stretching exercises. ERYN BAEZ PA-C [address] [facility],[address], [place], [address], [place] [facility], [facility] 12/11/2022 14:38:56 05/03/2023 text/html ROS as [...] retired. Never smoker. NATA AQUINO PA-C [address] [facility], [place], [address], [place] [facility], [facility] 05/06/2023 13:13:58 OBGyn Episode No OBEpisode recorded.
--- OUTSIDE RECORDS SUMMARY | 2025-06-05 13:20 | XMS_ITS | Encounter Summary ---
Author Organization [facility] Address [address] [place] [address] [place] [address] Phone Care Team Providers Care Corporate Law Specialist Name Role Phone Abraham Sutton MD Primary Care Provider [phone] Encounter Details Date Type Department Care Team (Latest Contact Info) Description 06/17/2022 Transcribe Orders [facility] Phleb [address] [address] Cara Castillo CNP [address] [place] [address] [email or web address] Constipation, unspecified constipation type (Primary Dx); Change [...] EST) TSH 4.82(H) 0.27 - 4.20 uIU/mL [facility] Blood 06/17/2022 10:3 5 AM EST 06/17/2022 10:41 AM EST us Cara Sofia Jonathan [facility] LAB BLOOD BKR ORDERABLES F inal Result [address] [address] * C-Reactive Protein (06/17/2022 10:35 AM EST) C REACTIVE PROTEIN <3.0 0.0 - 4.0 mg/L [facility] Blood 06/17/2022 10:3 5 AM EST 06/17/2022 10:41 AM EST Cara Castillo [facility] LAB BLOOD BKR ORDERABLES F inal Result Performing Organization Address City/[facility]/ZIP Co de Phone Number [address] [address] * (ABNORMAL) Comprehensive metabolic panel (06/17/2022 10:35 AM EST) SODIUM 136 133 - 146 mmol/L [facility] POTASSIUM 4.2 3.3 - 5.1 mmol/L [facility] CHLORIDE 101 96 - 108 mmol/L [facility] CO2 25 21 - 35 mmol/L [facility] BUN 22(H) 6 - 19 mg/dL [facility] CREATININE 0.80 0.5 - 1.5 mg/dL [facility] GLUCOSE 83 70 - 99 mg/dL [facility] ALBUMIN 4.4 3.9 - 4.8 g/dL [facility] TOTAL PROTEIN 7.2 6.5 - 8.0 g/dL [facility] CALCIUM 9.6 8.4 - 10.3 mg/dL [facility] ALKALINE PHOSPHATASE 66 39 - 117 U/L [facility] TOTAL BILIRUBIN 0.6 0.0 - 1.2 mg/dL [facility] AST 33 0 - 37 U/L [facility] ALT 18 0 - 40 U/L [facility] GLOBULIN 2.8 1 - 4.8 g/dL [facility] EGFR 78 >59 mL/min/1.7 3m2 [facility] Comment:Estimated glomerular filtration rate calculated using the CKD-EPI refit equation. ANION GAP 14 10 - 20 mmol/L [facility] Blood 06/17/2022 10:3 5 AM EST 06/17/2022 10:41 AM EST us Cara Castillo [facility] LAB BLOOD BKR ORDERABLES F inal Result [facility] [address] [place] [address] * (ABNORMAL) CBC and differential (06/17/2022 10:35 AM EST) WBC 2.57(L) 4.00 - 11.00 K/uL [facility] RBC 4.34 3.72 - 5.30 M/uL [facility] HGB 13.3 11.4 - 15.9 g/dL [facility] HCT 39.8 34.2 - 46.8 % [facility] PLT 170 140 - 430 K/uL [facility] MCV 91.7 78.0 - 97.0 fL [facility] MCH 30.6 25.0 - 33.0 pg [facility] MCHC 33.4 32.0 - 36.0 g/dL [facility] RDW 12.8 11.0 - 16.0 % [facility] MPV 11.9 8.4 - 12.8 fl [facility] DIFF METHOD Auto [facility] NEUTS 58.7 43.0 - 75.0 % [facility] LYMPHS 26.5 18.2 - 47.4 % [facility] MONOS 9.7 4.00 - 11.00 % [facility] EOS 3.5 0.0 - 8.0 % [facility] BASOS 1.6 0.0 - 2.0 % [facility] Granulocytes, immature (%) 0.0 0.0 - 0.9 % [facility] ABSOLUTE NEUTS 1.51(L) 1.80 - 7.70 K/uL [facility] ABSOLUTE LYMPHS 0.68(L) 1.00 - 3.10 K/uL [facility] ABSOLUTE MONOS 0.25 0.20 - 0.80 K/uL [facility] ABSOLUTE EOS 0.09 0.00 - 0.80 K/uL [facility] ABSOLUTE BASOS 0.04 0.00 - 0.09 K/uL [facility] Granulocytes, immature 0.00 0.00 - 0.05 K/uL [facility] Blood 06/17/2022 10:3 5 AM EST 06/17/2022 10:41 AM EST Cara Castillo [facility] LAB BLOOD BKR ORDERABLES F inal Result Performing Organization Address City/[facility]/ZIP Co de Phone Number [address] [address] * Immunoglobulin A (06/17/2022 10:35 AM EST) IgA 187 70 - 400 mg/dL [facility] Blood 06/17/2022 10:3 5 AM EST 06/17/2022 10:41 AM EST [facility] LAB BLOOD BKR ORDERABLES F inal Result Performing Organization Address [facility] Co de Phone Number [address] [address] * Tissue transglutaminase IgA (06/17/2022 10:35 AM EST) TTG IGA ANTIBODY <1.2 <4.0 (Negative) U/mL [facility] Blood 06/17/2022 10:3 5 AM EST 06/17/2022 10:41 AM EST [facility] LAB BLOOD BKR ORDERABLES F inal Result Performing Organization Address [facility] Co de Phone Number [facility] [address] [place] [address] documented in this encounter Visit Diagnoses Diagnosis Constipation, unspecified constipation type- Primary Change in bowel habits Other symptoms involving digestive system documented in this encounter Care Teams Corporate Law Specialist Relationship Specialty Start Date End Date Abraham Sutton MD [address] [place] [address] [email or web address] PCP - General Internal Medicine 05/13/18 documented as of this encounter Additional Source Comments The information contained in this document represents components of the legal health record. It is not the complete legal health record.[facility]
== END 2025-06-05 12:01 | disposition home or self-care (01) ==
LOC: HO.HMCH 11:11
DX: M17.12 Unilateral primary osteoarthritis, left knee (principal); G47.33 Obstructive sleep apnea (adult) (pediatric); R91.8 Other nonspecific abnormal finding of lung field; I73.00 Raynaud's syndrome without gangrene; M34.9 Systemic sclerosis, unspecified; D70.9 Neutropenia, unspecified; K21.9 Gastro-esophageal reflux disease without esophagitis; R41.3 Other amnesia

== ENCOUNTER → 2025-06-05 11:10 | Outpatient (BNVA) | payer MEDICARE, SELFPAY | DX: M25.562 Pain in left knee (principal); M17.12 Unilateral primary osteoarthritis, left knee; G47.33 Obstructive sleep apnea (adult) (pediatric); R91.8 Other nonspecific abnormal finding of lung field; I73.00 Raynaud's syndrome without gangrene; M34.9 Systemic sclerosis, unspecified; D70.9 Neutropenia, unspecified; Z99.89 Dependence on other enabling machines and devices; Z13.31 Encounter for screening for depression | CPT/HCPCS: 96127; 99212 ==

== ENCOUNTER 2025-06-05 12:36 | Outpatient (AMB) | payer MEDICARE, SELFPAY ==
--- NOTE | 2025-06-05 12:44 | MHC.OFFVIS ---
Vital Signs 06/05/25 12:51 Height 4 ft 11 in Weight 134 lb BMI 27.1 Intake Visit Reasons: left knee pain Intake Note: Ms. Yancey presents with complaints of progressively worsening left knee pain. She describes her pain as sharp in nature. She has had cortisone injections which gave her minimal relief. She has failed the last 3 months of conservative treatment which has included Tylenol, anti-inflammatory medicines and a home exercise program. At this point her left knee pain is interfering with her activities of daily living and her ability to sleep well through the night. She wishes to hold off on surgery if at all possible. She has had Durolane injections in the past which gave her good relief. Allergies amoxicillin Allergy (Mild, Verified 06/05/25 12:51) Diarrhea clindamycin Allergy (Mild, Verified 06/05/25 12:51) C-DIFF doxycycline Allergy (Mild, Verified 06/05/25 12:51) Gastrointestinal Upset Penicillins Allergy (Verified 06/05/25 12:51) Hallucinations azithromycin (From Zithromax Z-Butch) Adverse Reaction (Verified 06/05/25 12:51) Stomach Upset cephalexin (From Keflex) Adverse Reaction (Verified 06/05/25 12:51) Stomach Upset azthromycin Adverse Reaction (Uncoded 06/05/25 12:51) Stomach Upset Medication List - Last Reconciled 06/05/25 by Williams Lam MD 5-hydroxytryptophan (5-HTP) ER mg PO acetaminophen (Tylenol Extra Strength) 500 mg PO Q6H PRN amino acids caps PO bupropion HCl SR 150 mg PO DAILY calcium citrate 500 mg PO DAILY cetirizine (Zyrtec) 10 mg PO DAILY PRN clonazepam 1 mg orally QAM and 2 mg QHS; cyclosporine 0.05% (Restasis) drps ophthalmic (eye) fluticasone propionate 50 mcg/actuation sprays intranasal multivitamin 1 tab PO DAILY rixro-2n-uaz-epa-fish oil 350-600 mg (Fish Oil) 1,300 mg triamcinolone acetonide 0.025% appl topical trospium 20 mg PO BID tyrosine 500 mg PO BID venlafaxine ER 150 mg PO DAILY vibegron (Gemtesa) 75 mg PO DAILY PFSH Medical History H/O scleroderma Basal cell carcinoma Surgical History S/P trigger finger release History of carpal tunnel release H/O arthroscopy of right knee Hx of arthroscopy of left knee Status post total right knee replacement Family History Mother Breast cancer Father Heart failure Other Breast cancer metastasized to bone Social History Housing: Condominium Alcohol intake: never Patient Tobacco Use Status: Never used Tobacco e-Cigarette/Vaping Use: Never Used Second Hand Smoke Exposure: No service: No Current occupational status: retired Vision needs: No Physical Exam Vital Signs: BMI result Body Mass Index 27.1 Const Other: Well-nourished well-developed very friendly female awake alert and oriented x3 in no acute distress Extrem Other: Left knee examination shows a minimal effusion, palpable crepitus with range of motion, pain with range of motion, no instability Results Reviewed Results Reviewed: X-rays of the patient's left knee taken previously show joint space narrowing, subchondral sclerosis, no acute bony abnormalities Assessment & Plan Assessment & Plan (1) Osteoarthritis of left knee: Code(s): M17.12 - Unilateral primary osteoarthritis, left knee Category: Medical Plan Ms. Yancey presents with left knee pain due to osteoarthritis. I had a lengthy discussion with the patient regarding the treatment options. She wishes to hold off on surgery if at all possible. I agree with this plan. I did give her a prescription for a Medrol Dosepak. I will also see if the patient's insurance company will cover a Durolane viscosupplementation injection. I will see her back once the injection is approved. Feel free to call me at any time should questions regarding her orthopedic management arise. I spent 22 minutes in reviewing the patient's records and imaging studies, seeing the patient and documenting in the medical record. Medications: New methylprednisolone (Medrol (Butch)) PO PER PKG DIR 21 ea 0RF Coding Level of Care Code Est Pt Level 3 (98340) Complex EM visit Add On G2211 Diagnoses Osteoarthritis of left knee M17.12
[2025-06-05 12:51] VITALS: BMI 27.1
== END 2025-06-05 12:55 | disposition home or self-care (01) ==
LOC: HO.HOS 12:37
PROVIDERS: Visit Provider Orthopaedic Surgery
DX: M17.12 Unilateral primary osteoarthritis, left knee (principal)
CPT/HCPCS: 99213; G2211

== ENCOUNTER 2025-06-19 14:30 | Outpatient (AMB) | payer MEDICARE, SELFPAY ==
--- NOTE | 2025-06-19 14:35 | MHC.OFFVIS ---
Intake Visit Reasons: right knee Durolane Intake Note: Pema is a 75 year old female who presents with complaints of left knee pain. She describes her pain as sharp in nature. She has had cortisone injections in the past which gave her minimal relief. She has failed the last 3 months of conservative treatment. She wishes to hold off on left total knee replacement surgery if at all possible. Allergies amoxicillin Allergy (Mild, Verified 06/19/25 14:35) Diarrhea clindamycin Allergy (Mild, Verified 06/19/25 14:35) C-DIFF doxycycline Allergy (Mild, Verified 06/19/25 14:35) Gastrointestinal Upset Penicillins Allergy (Verified 06/19/25 14:35) Hallucinations azithromycin (From Zithromax Z-Butch) Adverse Reaction (Verified 06/19/25 14:35) Stomach Upset cephalexin (From Keflex) Adverse Reaction (Verified 06/19/25 14:35) Stomach Upset azthromycin Adverse Reaction (Uncoded 06/19/25 14:35) Stomach Upset Medication List - Last Reconciled 06/20/25 by Williams Lam MD 5-hydroxytryptophan (5-HTP) ER mg PO acetaminophen (Tylenol Extra Strength) 500 mg PO Q6H PRN amino acids caps PO bupropion HCl SR 150 mg PO DAILY calcium citrate 500 mg PO DAILY cetirizine (Zyrtec) 10 mg PO DAILY PRN clonazepam 1 mg orally QAM and 2 mg QHS; cyclosporine 0.05% (Restasis) drps ophthalmic (eye) fluticasone propionate 50 mcg/actuation sprays intranasal methylprednisolone (Medrol (Butch)) PO PER PKG DIR multivitamin 1 tab PO DAILY ccaja-6n-mjx-epa-fish oil 350-600 mg (Fish Oil) 1,300 mg triamcinolone acetonide 0.025% appl topical trospium 20 mg PO BID tyrosine 500 mg PO BID venlafaxine ER 150 mg PO DAILY vibegron (Gemtesa) 75 mg PO DAILY PFSH Medical History H/O scleroderma Basal cell carcinoma Surgical History S/P trigger finger release History of carpal tunnel release H/O arthroscopy of right knee Hx of arthroscopy of left knee Status post total right knee replacement Family History Mother Breast cancer Father Heart failure Other Breast cancer metastasized to bone Social History Housing: Condominium Alcohol intake: never Patient Tobacco Use Status: Never used Tobacco e-Cigarette/Vaping Use: Never Used Second Hand Smoke Exposure: No service: No Current occupational status: retired Vision needs: No Physical Exam Extrem Other: Left knee examination shows a minimal effusion, palpable crepitus with range of motion, pain with range of motion, no instability Office Procedures AMB Joint Injection/Aspiration Joint Injection/Aspiration Primary Site: Left Knee Prep: site was prepped using aseptic technique Injected: Durolane, with 3 mL of and 1% plain Lidocaine Procedure: The patient tolerated the procedure well Coding - Large joint Procedure code (CPT) selection complete Results Reviewed Results Reviewed: X-rays of the patient's left knee taken previously show joint space narrowing, subchondral sclerosis, no acute bony abnormalities Assessment & Plan Assessment & Plan (1) Osteoarthritis of left knee: Code(s): M17.12 - Unilateral primary osteoarthritis, left knee Category: Medical Plan Ms. Yancey presents with left knee pain due to osteoarthritis. The risks and benefits of a Durolane viscosupplementation injection were discussed at length with the patient. The patient wished to proceed. She tolerated the injection well. I did give her a prescription to go to formal physical therapy. She will contact me prior to her follow-up appointment in 3 months should any questions or concerns arise. Feel free to call me at any time should questions regarding her orthopedic management arise. I spent 20 minutes in reviewing the patient's records and imaging studies, seeing the patient and documenting in the medical record. Orders: Orders PT Evaluation and Treatment Today M17.12 - Unilateral primary osteoarthritis, left knee AMB Joint Injection/Aspiration 06/19/25 M17.12 - Unilateral primary osteoarthritis, left knee Coding Level of Care Code Est Pt Level 3 (28040) Complex visit Add On G2211 Diagnoses Osteoarthritis of left knee M17.12 CPT Codes Coding - Large joint: 47317 - Large joint ([id number])
--- OUTSIDE RECORDS SUMMARY | 2025-06-19 18:23 | XMS_ITS | Clinical Summary ---
Author Organization [facility] Address [address] [place] [address] Care Team Providers Care Transformation Manager Name Role Phone Abraham Sutton MD Primary Care Provider [phone] Allergies Active Allergy Reactions Criticality Noted Date [...] MG CAPS Take by mouth. 0 Active [place]-3 Fatty Acids (FISH OIL) 600 MG CAPS [...] age to complete this topic Care Teams Transformation Manager Relationship Specialty Start Date End Date Abraham Sutton MD [address] [place] [address] PCP - General Internal Medicine 03/02/17
--- OUTSIDE RECORDS SUMMARY | 2025-06-19 18:23 | XMS_ITS | Clinical Summary ---
Author Organization [facility] Address [address] [place] [address] Phone Care Team Providers Care Building Inspector Name Role Phone Ebony Jarrett Primary Care Provider [phone] Surgical History Surgery Date Site/Laterality Comments KNEE [...] year. 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 TISSUE DENSITY: There are scattered [...] year. Mammography location: [facility] [address] [place], [address] -------- FINAL REPORT -------- Dictated By: Ger Varghese Dictated Date: 02/22/2025 07:14 ET Assigned Physician: Ger Varghese Reviewed and Electronically Signed By: Ger Varghese Signed Date: 02/22/2025 07:19 ET Workstation ID: [id number] Transcribed By: Self Edit Transcribed Date: 02/22/2025 07:14 ET us Self Referral Sppl IMG BI PROCEDURES Final Resul t * RABIA DEXA AXIAL SKELETON (06/26/2022 3:59 PM EST) Anatomical Region Laterality Modality Mammography 06/26/2022 9:28 AM EST Narrative 06/26/2022 3:59 PM EST [facility] Diagnostic Imaging Department [address] [place] [address] Patient: HECTOR LINDQUISTCESIA Best/Age/Sex: 1950 - 72 - F Unit#: [id number] Location/Status: SPDIMAM/REG CLI Mnemonic/Ordering Site: [facility] Ordering Physician: CHIP TAO MD [facility] Dexa Axial Skeleton - 06/26/22 - 1018 [facility] Dexa Axial Skeleton INDICATION: POSTMENOPAUSAL Technique: [...] IMPRESSION: Findings suggesting normal bone mineral density. [id number] Dictating Physician: UMAIR TAYLOR MD Electronically Signed by: UMAIR TAYLOR MD Dic Date/Time: 06/26/221557 Sign date/Time: 06/26/221558 Procedure Note Umair Taylor MD - 08/27/2023 [facility] Diagnostic Imaging Department [address] [place] [address] Patient: LEXAMARITZA Best/Age/Sex: 1950 - 72 - F Unit#: [id number] Location/Status: SPDIMAM/REG CLI Mnemonic/Ordering Site: [facility] Ordering Physician: CHIP TAO MD Rabia Dexa Axial Skeleton - 06/26/22 - 1019 [facility] Dexa Axial Skeleton INDICATION: POSTMENOPAUSAL Technique: [...] IMPRESSION: Findings suggesting normal bone mineral density. [id number] Dictating Physician: UMAIR TAYLOR MD Electronically Signed by: UMAIR TAYLOR MD Dic Date/Time: 06/26/221557 Sign date/Time: 06/26/221558 Chip Tao MD IMG BI PROCEDURES Final Result from Last 3 Months or Most Recently Relevant to Health Maintenance Insurance MEDICARE [facility] Care Teams Building Inspector Relationship Specialty Start Date End Date Ebony Jarrett PA [address] [place] [address], [address] [place] [address] PCP - General 02/21/25
--- OUTSIDE RECORDS SUMMARY | 2025-06-19 18:23 | XMS_ITS | Encounter Summary ---
Author Organization [facility] Address [address] [place] [address] [place] [address] Phone Care Team Providers Care Saturation Diver Name Role Phone Abraham Sutton MD Primary Care Provider [phone] Encounter Details Date Type Department Care Team (Latest Contact Info) Description 06/17/2022 Transcribe Orders [facility] Phleb [address] [address] Cara Castillo CNP [address] [place] [address] [email or web address] Constipation, unspecified constipation type (Primary Dx); Change [...] EST) TSH 4.82(H) 0.27 - 4.20 uIU/mL [facility] Blood 06/17/2022 10:3 5 AM EST 06/17/2022 10:41 AM EST us Cara Sofia Jonathan [facility] LAB BLOOD BKR ORDERABLES F inal Result [address] [address] * C-Reactive Protein (06/17/2022 10:35 AM EST) C REACTIVE PROTEIN <3.0 0.0 - 4.0 mg/L [facility] Blood 06/17/2022 10:3 5 AM EST 06/17/2022 10:41 AM EST Cara Castillo [facility] LAB BLOOD BKR ORDERABLES F inal Result Performing Organization Address City/[facility]/ZIP Co de Phone Number [address] [address] * (ABNORMAL) Comprehensive metabolic panel (06/17/2022 10:35 AM EST) SODIUM 136 133 - 146 mmol/L [facility] POTASSIUM 4.2 3.3 - 5.1 mmol/L [facility] CHLORIDE 101 96 - 108 mmol/L [facility] CO2 25 21 - 35 mmol/L [facility] BUN 22(H) 6 - 19 mg/dL [facility] CREATININE 0.80 0.5 - 1.5 mg/dL [facility] GLUCOSE 83 70 - 99 mg/dL [facility] ALBUMIN 4.4 3.9 - 4.8 g/dL [facility] TOTAL PROTEIN 7.2 6.5 - 8.0 g/dL [facility] CALCIUM 9.6 8.4 - 10.3 mg/dL [facility] ALKALINE PHOSPHATASE 66 39 - 117 U/L [facility] TOTAL BILIRUBIN 0.6 0.0 - 1.2 mg/dL [facility] AST 33 0 - 37 U/L [facility] ALT 18 0 - 40 U/L [facility] GLOBULIN 2.8 1 - 4.8 g/dL [facility] EGFR 78 >59 mL/min/1.7 3m2 [facility] Comment:Estimated glomerular filtration rate calculated using the CKD-EPI refit equation. ANION GAP 14 10 - 20 mmol/L [facility] Blood 06/17/2022 10:3 5 AM EST 06/17/2022 10:41 AM EST us Cara Castillo [facility] LAB BLOOD BKR ORDERABLES F inal Result [facility] [address] [place] [address] * (ABNORMAL) CBC and differential (06/17/2022 10:35 AM EST) WBC 2.57(L) 4.00 - 11.00 K/uL [facility] RBC 4.34 3.72 - 5.30 M/uL [facility] HGB 13.3 11.4 - 15.9 g/dL [facility] HCT 39.8 34.2 - 46.8 % [facility] PLT 170 140 - 430 K/uL [facility] MCV 91.7 78.0 - 97.0 fL [facility] MCH 30.6 25.0 - 33.0 pg [facility] MCHC 33.4 32.0 - 36.0 g/dL [facility] RDW 12.8 11.0 - 16.0 % [facility] MPV 11.9 8.4 - 12.8 fl [facility] DIFF METHOD Auto [facility] NEUTS 58.7 43.0 - 75.0 % [facility] LYMPHS 26.5 18.2 - 47.4 % [facility] MONOS 9.7 4.00 - 11.00 % [facility] EOS 3.5 0.0 - 8.0 % [facility] BASOS 1.6 0.0 - 2.0 % [facility] Granulocytes, immature (%) 0.0 0.0 - 0.9 % [facility] ABSOLUTE NEUTS 1.51(L) 1.80 - 7.70 K/uL [facility] ABSOLUTE LYMPHS 0.68(L) 1.00 - 3.10 K/uL [facility] ABSOLUTE MONOS 0.25 0.20 - 0.80 K/uL [facility] ABSOLUTE EOS 0.09 0.00 - 0.80 K/uL [facility] ABSOLUTE BASOS 0.04 0.00 - 0.09 K/uL [facility] Granulocytes, immature 0.00 0.00 - 0.05 K/uL [facility] Blood 06/17/2022 10:3 5 AM EST 06/17/2022 10:41 AM EST Cara Castillo [facility] LAB BLOOD BKR ORDERABLES F inal Result Performing Organization Address City/[facility]/ZIP Co de Phone Number [address] [address] * Immunoglobulin A (06/17/2022 10:35 AM EST) IgA 187 70 - 400 mg/dL [facility] Blood 06/17/2022 10:3 5 AM EST 06/17/2022 10:41 AM EST [facility] LAB BLOOD BKR ORDERABLES F inal Result Performing Organization Address [facility] Co de Phone Number [address] [address] * Tissue transglutaminase IgA (06/17/2022 10:35 AM EST) TTG IGA ANTIBODY <1.2 <4.0 (Negative) U/mL [facility] Blood 06/17/2022 10:3 5 AM EST 06/17/2022 10:41 AM EST Cara Black [facility] LAB BLOOD BKR ORDERABLES F inal Result Performing Organization Address [facility] Co de Phone Number [facility] [address] [place] [address] documented in this encounter Visit Diagnoses Diagnosis Constipation, unspecified constipation type- Primary Change in bowel habits Other symptoms involving digestive system documented in this encounter Care Teams Saturation Diver Relationship Specialty Start Date End Date Abraham Sutton MD [address] [place] [address] [email or web address] PCP - General Internal Medicine 05/13/18 documented as of this encounter Additional Source Comments The information contained in this document represents components of the legal health record. It is not the complete legal health record.[facility]
--- OUTSIDE RECORDS SUMMARY | 2025-06-19 18:23 | XMS_ITS | Data Portability ---
Author Organization [facility] Mandy Shoemaker [employer] Address [address] [place] [address] Care Team Providers Care Chief Order Dispatcher Name Role Phone SEBASTIÁN BATISTA Primary Care Provider [phone] Assessment Encounter Date Assessment Date Assessment LastModified [...] view 023 023 agustin 3 [facility], [address], [place], [address], 16:11:58 Medication Orders Synvisc-O ne 48 mg/6 mL intra-art icular syringe 023 [email or web address] [id number], [address] [place], [address], 14:52:52 Patient TargetsNo targets recorded. Patient Instructions Encounter Date Encounter Id Patient Instructions Last Modified By Organization Details Last Modified Time 12/11/2022 [id number] You have been pr ovided with a [...] ROCIO. [email or web address] Not available 12/11/2022 14:08:34 05/03/2023 [id number] 3 views of the r ight shoulder were obtained today 05/03/2023 in the [place] office. Mild glenohumeral joint space narrowing. Mild [...] Rupture of rotator cuff of right shoulder [id number] 03 Active 2022 NATA AQUINO PA-C [address], [place], [address], [place] [facility], P 3 12:57:56 Problem Notes None recorded. Procedures Surgical History Date Name Laterality Status Provider Name and Address Organization Details Recorded Time 12/11/2022 Synvisc-On e Knee Inj completed ERYN BAEZ PA-C [address], [place], [address], [place] [facility], [facility] 12/11/2022 14:37:46 Imaging Results None recorded. Procedure Notes None recorded. Medical Equipment None Reported. Allergies Allergen ID Allergen Name Allergen Category Reaction Reaction Severity Criticality Documentation Date Start Date Code Code System Note Provider Name and Address Organization Details Recorded Time 50407 erythromy lulu medicatio n Not available Not available Not available 04/17/20252016 4053 RxNorm Not Available [facility] 01:16:11 95529 Product containin g penicilli n (product) medicatio n Not available Not available Not available 04/17/20252016 21359 8001 SNOMED Not Available [facility] 01:16:11 Medications Name Sig Start Date [...] ICD10 Code Diagnosis IMO Codes Diagnosis Note [id number] ERYN BAEZ PA-C [facility] [address] [address] 12/11/2022 14:04:37 12/11/2022 14:29:36 Osteoarthritis of left knee joint 1972550120 55778 M17.12 05805 NATA AQUINO PA-C [facility] [address] [address] 05/03/2023 13:26:58 05/03/2023 14:23:33 Pain of right shoulder joint 0059747971 2400962 M25.511 Rupture of rotator cuff of right shoulder 0953739007 9692158 M75.101 Health Concerns Section Related Observation LastModified by Organization Detai ls LastModified Time None Recorded Concern Status LastModified by Organization Details LastModified Time None Recorded Advance Directives Directive None Recorded Payers Insurance Date Sequence Insurance Name Policy Number Policy Mckinnon Covered Member ID Mckinnon Member ID Guarantor Name 05/19/2023 2 [place] [id number] Pema Bc [id number] Pema Bc 05/04/2023 1 [place] Pema Yancey [id number] Pema Bc Notes Date Note Type [...] her stretching exercises. ERYN BAEZ PA-C [address] [employer] [address], [place], [address], [place] [facility], P 12/11/2022 14:38:56 05/03/2023 text/html ROS as [...] retired. Never smoker. NATA AQUINO PA-C [address] [employer] [address], [place], [address], [place] [facility] 05/06/2023 13:13:58 OBGyn Episode No OBEpisode recorded.
--- OUTSIDE RECORDS SUMMARY | 2025-06-19 18:23 | XMS_ITS | Clinical Summary ---
Author Organization [facility] Address [address] [address] Phone Care Team Providers Care Travel Agency Manager Name Role Phone Abraham Sutton MD Primary Care Provider [phone] Allergies Active Allergy Reactions Criticality Noted Date [...] file Insurance MEDICARE PART A & B [facility] MEDEX SUPPLEMENT MEDICARE PART A & B [employer] MEDEX SUPPLEMENT MEDICARE PART A & B [employer] MEDEX SUPPLEMENT MEDICARE PART A & B [employer] MEDEX SUPPLEMENT MEDICARE PART A & B [employer] MEDEX SUPPLEMENT MEDICARE PART A & B [employer] MEDEX SUPPLEMENT MEDICARE PART A & B [employer] MEDEX SUPPLEMENT MEDICARE PART A & B [employer] MEDEX SUPPLEMENT MEDICARE PART A & B [employer] CROSS MEDEX SUPPLEMENT Member Subscriber Plan / Payer (Ef fective 2015-Present) Name:Pema Yancey Relation to Subscriber:Self Name:Pema Yancey Payer ID:[id number] (NAIC) Type:Indemnity Address: [address] [place] [id number] Care Teams Travel Agency Manager Relationship Specialty Start Date End Date Abraham Sutton MD [address] [place] [address] [email or web address] PCP - General Internal Medicine 05/13/18 Additional Source Comments The information contained in this document represents components of the legal health record. It is not the complete legal health record.[facility]
--- OUTSIDE RECORDS SUMMARY | 2025-06-19 18:23 | XMS_ITS | Patient Health Record ---
Author Organization [facility] [place] Address [address] [facility] [place] [address] Care Team Providers Care Kier Pleater Name Role Phone Abraham Sutton Primary Care Provider Unavailabl e Bc Elle Unavailable [phone] Allergies Allergen (clinical drug ingredient) Drug/Non Drug [...] primary osteoarthritis of the ankle and/or foot (623513206) Primary osteoarthrit is, right ankle and foot (M19.071) Active confirmed Problem Localized, primary osteoarthritis of the ankle and/or foot (973413158) Primary osteoarthrit is, left ankle and foot (M19.072) Active confirmed Problem Acquired hammer toe of right foot (2269803659197870) Other hammer toe(s) (acquired), right foot (M20.41) Active confirmed Problem Acquired hammer toe of left foot (8416577596296071) Other hammer toe(s) (acquired), left foot (M20.42) Active confirmed Plan Of Treatment No Information Insurance Providers Payer Name Payer Address Payer Phone Subscriber Number Group Number Insured Name Patient Relationship to Insured Coverage Start Date Coverage End Date Medicare National Govt Svcs Inc [address] [facility] [place] [address] [id number] Pema Yancey Self - patient is the insured Med[employer] Blue Shield [address] [place] [address] [id number] Pema Yancey Self - patient is [...]
== END 2025-06-19 14:53 | disposition home or self-care (01) ==
LOC: HO.HOS 14:31
PROVIDERS: Visit Provider Orthopaedic Surgery
DX: M17.12 Unilateral primary osteoarthritis, left knee (principal)
CPT/HCPCS: 20610; 99213

== ENCOUNTER → 2025-06-19 14:30 | Outpatient (BNVA) | payer MEDICARE, SELFPAY | PROVIDERS: Visit Provider Orthopaedic Surgery | DX: M17.12 Unilateral primary osteoarthritis, left knee (principal); Z96.651 Presence of right artificial knee joint | CPT/HCPCS: 20610; 99212; J2003; J7318 ==

== ENCOUNTER 2025-06-27 10:21 | Outpatient (AMB) | payer MEDICARE, SELFPAY ==
--- NOTE | 2025-06-27 10:24 | A.OFFVIS_ITS ---
Vital Signs 06/27/25 10:25 Height 4 ft 11 in Weight 136 lb 3.931 oz BMI 27.5 BP 140/70 H Blood Pressure Location Rt brachial Position Sitting Pulse 111 H Pulse Source Pulse Oximeter Pulse Oximetry (%) 100 Oxygen Delivery Method Room Air Intake Visit Reasons: f/u Intake Note: Patient here to be seen for Raynauds. 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 She reports she had Nicky's test results. I do not have report of her recent eye exam. Raynaud's syndrome is active. Increase frequency daily with fingers turning purple and numb. Warming is not helping. She has her temperature set up in her home higher during the day to 70 degrees F. She continues to have dry mouth and dry eyes. [facility] Medical History H/O scleroderma Basal cell carcinoma Surgical History S/P trigger finger release History of carpal tunnel release H/O arthroscopy of right knee Hx of arthroscopy of left knee Status post total right knee replacement Family History Mother Breast cancer Father Heart failure Other Breast cancer metastasized to bone Social History Housing: Condominium Alcohol intake: never Patient Tobacco Use Status: Never used Tobacco e-Cigarette/Vaping Use: Never Used Second Hand Smoke Exposure: No service: No Current occupational status: retired Vision needs: No Physical Exam Vital Signs: Last Vital Signs Pulse 111 H 06/27/25 10:25 BP 140/70 H 06/27/25 10:25 Pulse Ox 100 06/27/25 10:25 Oxygen Delivery Method Room Air 06/27/25 10:25 BMI result Body Mass Index 27.5 Const Other: General: Comfortable CVS: RRR Respiratory: clear to auscultation bilaterally. Good respiratory effort Skin: Telangiectasia anterior chest. No sclerodactyly. No tightening of skin in upper extremities and lower extremities. Fingertips are red extending to the palmar aspect of fingers. She has periungual erythema. MSK: No tender joints. Heberden nodes present. No synovitis. Normal range of motion of upper extremities and lower extremities. Assessment & Plan Assessment & Plan (1) Positive TATA (antinuclear antibody): Comment: High titer positive 1: 1280, 1:320 with low titer positive rheumatoid factor, sicca symptoms, telangiectasia and Raynaud's phenomenon concerning for Sjogren's syndrome. Negative SSA/SSB. CT chest reveals mild interstitial lung disease. Recently she had PFTs last week. I reviewed pulmonology note 05/30/2025. Antibody profile of elevated TATA and rheumatoid factor can be seen in Sjogren syndrome. She is currently being treated for dry eyes with Restasis. She had Nicky's test but I do not have report. We discussed next steps in diagnostic evaluation for Sjogren syndrome with considering minor salivary gland biopsy after I review eye exam report. Answered patient's questions to her satisfaction. Code(s): R76.8 - Other specified abnormal immunological findings in serum Category: Medical Plan: I am requesting recent eye exam that patient had for evaluation of keratoconjunctivitis sicca and Nicky's test with Dr. Cardenas. Continue dry eye management with Ophthalmology. I will consider minor salivary gland biopsy after reviewing eye exam report Labs ordered including complements and SPEP Requesting PFTs results performed last week Return to clinic in 3 months (2) Raynaud disease without gangrene: Comment: Thirty year history. Raynaud's phenomenon is conservatively managed. Active daily with frequent episodes throughout the day causing fingers to change color with the associated numbness. We discussed management with calcium channel isabella. Code(s): I73.00 - Raynaud's syndrome without gangrene Category: Medical Plan: Continue conservative management Start amlodipine 2.5 mg daily Nurse visit in 1 month for blood pressure check. If her Raynaud's syndrome ep isodes are unchanged on amlodipine 2.5 mg daily and her blood pressure is stable, I will increase dose of amlodipine to 5 mg daily to better control Raynaud's syndrome during the fall/winter months Return to clinic in 3 months or sooner if needed (3) Sicca syndrome: Code(s): M35.00 - Sjogren syndrome, unspecified Category: Medical Plan: See above Orders: Orders Erythrocyte Sedimentation Rate Today M35.00 - Sjogren syndrome, unspecified Immunofixation Pnl, Serum Today M35.00 - Sjogren syndrome, unspecified Complement C4 Today M35.00 - Sjogren syndrome, unspecified Complement C3 Today M35.00 - Sjogren syndrome, unspecified C Reactive Protein Today M35.00 - Sjogren syndrome, unspecified Medications: New amlodipine 2.5 mg PO DAILY 30 tabs 11RF amlodipine 2.5 mg PO DAILY 30 tabs 5RF Coding Level of Care Code Est Pt Level 4 (41192) Complex visit Add On G2211 Diagnoses Positive TATA (antinuclear antibody) R76.8 Raynaud disease without gangrene I73.00 Sicca syndrome M35.00
[2025-06-27 10:25] VITALS: BP 140/70; PULSE 111; O2SAT 100; BMI 27.5
--- OUTSIDE RECORDS SUMMARY | 2025-06-27 11:52 | XMS_ITS | Encounter Summary ---
Author Organization [facility] Address [address] [place] [address] [place] [address] Phone Care Team Providers Care Friction Saw Operator Name Role Phone Abraham Sutton MD Primary Care Provider [phone] Encounter Details Date Type Department Care Team (Latest Contact Info) Description 06/17/2022 Transcribe Orders [facility] Phleb [address] [address] Cara Castillo CNP [address] [place] [id number] [email or web address] Constipation, unspecified constipation type (Primary Dx); Change [...] EST) TSH 4.82(H) 0.27 - 4.20 uIU/mL [facility] Blood 06/17/2022 10:3 5 AM EST 06/17/2022 10:41 AM EST us Cara Sofia Ojnathan [facility] LAB BLOOD BKR ORDERABLES F inal Result [address] [address] * C-Reactive Protein (06/17/2022 10:35 AM EST) C REACTIVE PROTEIN <3.0 0.0 - 4.0 mg/L [facility] Blood 06/17/2022 10:3 5 AM EST 06/17/2022 10:41 AM EST Cara Castillo CAMER[employer] SUPERVIS[employer] LAB BLOOD BKR ORDERABLES F inal Result Performing Organization Address City/[facility]/ZIP Co de Phone Number [address] [address] * (ABNORMAL) Comprehensive metabolic panel (06/17/2022 10:35 AM EST) SODIUM 136 133 - 146 mmol/L [facility] POTASSIUM 4.2 3.3 - 5.1 mmol/L [facility] CHLORIDE 101 96 - 108 mmol/L [facility] CO2 25 21 - 35 mmol/L [facility] BUN 22(H) 6 - 19 mg/dL [facility] CREATININE 0.80 0.5 - 1.5 mg/dL [facility] GLUCOSE 83 70 - 99 mg/dL [facility] ALBUMIN 4.4 3.9 - 4.8 g/dL [facility] TOTAL PROTEIN 7.2 6.5 - 8.0 g/dL [facility] CALCIUM 9.6 8.4 - 10.3 mg/dL [facility] ALKALINE PHOSPHATASE 66 39 - 117 U/L [facility] TOTAL BILIRUBIN 0.6 0.0 - 1.2 mg/dL [facility] AST 33 0 - 37 U/L [facility] ALT 18 0 - 40 U/L [facility] GLOBULIN 2.8 1 - 4.8 g/dL [facility] EGFR 78 >59 mL/min/1.7 3m2 [facility] Comment:Estimated glomerular filtration rate calculated using the CKD-EPI refit equation. ANION GAP 14 10 - 20 mmol/L [facility] Blood 06/17/2022 10:3 5 AM EST 06/17/2022 10:41 AM EST us Cara Castillo CAMER[employer] SUPERVIS[employer] LAB BLOOD BKR ORDERABLES F inal Result [facility] [address] [place] [address] * (ABNORMAL) CBC and differential (06/17/2022 10:35 AM EST) WBC 2.57(L) 4.00 - 11.00 K/uL [facility] RBC 4.34 3.72 - 5.30 M/uL [facility] HGB 13.3 11.4 - 15.9 g/dL [facility] HCT 39.8 34.2 - 46.8 % [facility] PLT 170 140 - 430 K/uL [facility] MCV 91.7 78.0 - 97.0 fL [facility] MCH 30.6 25.0 - 33.0 pg [facility] MCHC 33.4 32.0 - 36.0 g/dL [facility] RDW 12.8 11.0 - 16.0 % [facility] MPV 11.9 8.4 - 12.8 fl [facility] DIFF METHOD Auto [facility] NEUTS 58.7 43.0 - 75.0 % [facility] LYMPHS 26.5 18.2 - 47.4 % [facility] MONOS 9.7 4.00 - 11.00 % [facility] EOS 3.5 0.0 - 8.0 % [facility] BASOS 1.6 0.0 - 2.0 % [facility] Granulocytes, immature (%) 0.0 0.0 - 0.9 % [facility] ABSOLUTE NEUTS 1.51(L) 1.80 - 7.70 K/uL [facility] ABSOLUTE LYMPHS 0.68(L) 1.00 - 3.10 K/uL [facility] ABSOLUTE MONOS 0.25 0.20 - 0.80 K/uL [facility] ABSOLUTE EOS 0.09 0.00 - 0.80 K/uL [facility] ABSOLUTE BASOS 0.04 0.00 - 0.09 K/uL [facility] Granulocytes, immature 0.00 0.00 - 0.05 K/uL [facility] Blood 06/17/2022 10:3 5 AM EST 06/17/2022 10:41 AM EST Cara Castillo [facility] LAB BLOOD BKR ORDERABLES F inal Result Performing Organization Address City/[facility]/ZIP Co de Phone Number [address] [address] * Immunoglobulin A (06/17/2022 10:35 AM EST) IgA 187 70 - 400 mg/dL [facility] Blood 06/17/2022 10:3 5 AM EST 06/17/2022 10:41 AM EST [facility] LAB BLOOD BKR ORDERABLES F inal Result Performing Organization Address [facility] Co de Phone Number [address] [address] * Tissue transglutaminase IgA (06/17/2022 10:35 AM EST) TTG IGA ANTIBODY <1.2 <4.0 (Negative) U/mL [facility] Blood 06/17/2022 10:3 5 AM EST 06/17/2022 10:41 AM EST Cara Black [facility] LAB BLOOD BKR ORDERABLES F inal Result Performing Organization Address [facility] Co de Phone Number [facility] [address] [place] [address] documented in this encounter Visit Diagnoses Diagnosis Constipation, unspecified constipation type- Primary Change in bowel habits Other symptoms involving digestive system documented in this encounter Care Teams Friction Saw Operator Relationship Specialty Start Date End Date Abraham Sutton MD [address] [place] [address] [email or web address] PCP - General Internal Medicine 05/13/18 documented as of this encounter Additional Source Comments The information contained in this document represents components of the legal health record. It is not the complete legal health record.[facility]
--- OUTSIDE RECORDS SUMMARY | 2025-06-27 11:52 | XMS_ITS | Data Portability ---
Author Organization [place] [facility] Mandy Shoemaker [facility] [place] Address [address] [place] [address] Care Team Providers Care Property Management Bookkeeper Name Role Phone SEBASTIÁN BATISTA Primary Care [...] view [phone] agustin 3 [facility], [address], [place], [address], 16:11:58 Medication Orders Synvisc-O ne 48 mg/6 mL intra-art icular syringe 023 [email or web address] [id number], [address] [place], [address], 14:52:52 Patient TargetsNo targets recorded. Patient Instructions Encounter Date Encounter Id Patient Instructions Last Modified By Organization Details Last Modified Time 12/11/2022 [id number] You have been pr ovided with a [...] ROCIO. [email or web address] Not available 12/11/2022 14:08:34 05/03/2023 [id number] 3 views of the r ight shoulder were obtained today 05/03/2023 in the [place] office. Mild glenohumeral joint space narrowing. Mild [...] Rupture of rotator cuff of right shoulder [id number] 03 Active 2022 NATA AQUINO PA-C [address], [place], [address], [place] [facility], [facility] 3 12:57:56 Problem Notes None recorded. Procedures Surgical History Date Name Laterality Status Provider Name and Address Organization Details Recorded Time 12/11/2022 Synvisc-On e Knee Inj completed ERYN BAEZ PA-C [address], [place], [address], [place] [facility] 12/11/2022 14:37:46 Imaging Results None recorded. Procedure Notes None recorded. Medical Equipment None Reported. Allergies Allergen ID Allergen Name Allergen Category Reaction Reaction Severity Criticality Documentation Date Start Date Code Code System Note Provider Name and Address Organization Details Recorded Time 56756 erythromy lulu medicatio n Not available Not available Not available 04/17/20252016 4053 RxNorm Not Available [facility] 01:16:11 20825 Product containin g penicilli n (product) medicatio n Not available Not available Not available 04/17/20252016 18189 8001 SNOMED Not Available [facility] 5 01:16:11 Medications Name Sig Start [...] ICD10 Code Diagnosis IMO Codes Diagnosis Note [id number] ERYN BAEZ PA-C [facility] [address] [address] 12/11/2022 14:04:37 12/11/2022 14:29:36 Osteoarthritis of left knee joint 4458084514 99357 M17.12 [id number] NATA AQUINO PA-C [facility] [address] [address] 05/03/2023 13:26:58 05/03/2023 14:23:33 Pain of right shoulder joint 9952059917 0916305 M25.511 Rupture of rotator cuff of right shoulder 6796783403 0399977 M75.101 Health Concerns Section Related Observation LastModified by Organization Detai ls LastModified Time None Recorded Concern Status LastModified by Organization Details LastModified Time None Recorded Advance Directives Directive None Recorded Payers Insurance Date Sequence Insurance Name Policy Number Policy Mckinnon Covered Member ID Mckinnon Member ID Guarantor Name 05/19/2023 2 [place] [id number] Pema Bc [id number] Pema Bc 05/04/2023 1 [place] Pema Yancey [id number] Pema Bc Notes Date Note Type [...] her stretching exercises. ERYN BAEZ PA-C [address] [facility],[address], [place], [address], [place] [facility] 12/11/2022 14:38:56 05/03/2023 text/html ROS as [...] retired. Never smoker. NATA AQUINO PA-C [address] [facility],[address], [place], [address], [place] [facility] 05/06/2023 13:13:58 OBGyn Episode No OBEpisode recorded.
--- OUTSIDE RECORDS SUMMARY | 2025-06-27 11:52 | XMS_ITS | Clinical Summary ---
Author Organization [facility] Address [address] [address] Phone Care Team Providers Care Supervisor Engraving Name Role Phone Abraham Sutton MD Primary Care Provider [phone] Allergies Active Allergy Reactions Criticality Noted Date [...] file Insurance MEDICARE PART A & B [facility] MEDEX SUPPLEMENT MEDICARE PART A & B [employer] MEDEX SUPPLEMENT MEDICARE PART A & B [employer] MEDEX SUPPLEMENT MEDICARE PART A & B [employer] MEDEX SUPPLEMENT MEDICARE PART A & B [employer] MEDEX SUPPLEMENT MEDICARE PART A & B [employer] MEDEX SUPPLEMENT MEDICARE PART A & B [employer]UE [employer] MEDEX SUPPLEMENT MEDICARE PART A & B [employer] MEDEX SUPPLEMENT MEDICARE PART A & B [email or web address] CROSS MEDEX SUPPLEMENT Member Subscriber Plan / Payer (Ef fective 2015-Present) Name:Pema Yancey Relation to Subscriber:Self Name:Pema Yancey Payer ID:[id number] (NAIC) Type:Indemnity Address: [address] [place] [id number] Care Teams Supervisor Engraving Relationship Specialty Start Date End Date Abraham Sutton MD [address] [place] [address] [email or web address] PCP - General Internal Medicine 05/13/18 Additional Source Comments The information contained in this document represents components of the legal health record. It is not the complete legal health record.[facility]
--- OUTSIDE RECORDS SUMMARY | 2025-06-27 11:52 | XMS_ITS | Clinical Summary ---
Author Organization [facility] Address [address] [place] [address] Care Team Providers Care Garment Patternmaker Name Role Phone Abraham Sutton MD Primary Care Provider [phone] Allergies Active Allergy Reactions Criticality Noted Date [...] MG CAPS Take by mouth. 0 Active Towanda-3 Fatty Acids (FISH OIL) 600 MG CAPS [...] age to complete this topic Care Teams Garment Patternmaker Relationship Specialty Start Date End Date Abraham Sutton MD [address] [place] [address] PCP - General Internal Medicine 03/02/17
--- OUTSIDE RECORDS SUMMARY | 2025-06-27 11:52 | XMS_ITS | Clinical Summary ---
Author Organization [facility] Address [address] [place] [address] Phone Care Team Providers Care International [employer] Music Librarian Name Role Phone Ebony Jarrett Primary Care Provider [phone] Surgical History Surgery Date Site/Laterality Comments KNEE [...] year. 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 TISSUE DENSITY: There are scattered [...] year. Mammography location: [facility] [address] [place], [address] -------- FINAL REPORT -------- Dictated By: Ger Varghese Dictated Date: 02/22/2025 07:14 ET Assigned Physician: Ger Varghese Reviewed and Electronically Signed By: Ger Varghese Signed Date: 02/22/2025 07:19 ET Workstation ID: [id number] Transcribed By: Self Edit Transcribed Date: 02/22/2025 07:14 ET us Self Referral Sppl IMG BI PROCEDURES Final Resul t * RABIA DEXA AXIAL SKELETON (06/26/2022 3:59 PM EST) Anatomical Region Laterality Modality Mammography 06/26/2022 9:28 AM EST Narrative 06/26/2022 3:59 PM EST [facility] Diagnostic Imaging Department [address] [place] [address] Patient: HECTOR LINDQUISTCESIA Best/Age/Sex: 1950 - 72 - F Unit#: [id number] Location/Status: SPDIMAM/REG CLI Mnemonic/Ordering Site: [facility] Ordering Physician: CHIP TAO MD [facility] Dexa Axial Skeleton - 06/26/22 - 1018 [facility] Dexa Axial Skeleton INDICATION: POSTMENOPAUSAL Technique: [...] IMPRESSION: Findings suggesting normal bone mineral density. [id number] Dictating Physician: UMAIR TAYLOR MD Electronically Signed by: UMAIR TAYLOR MD Dic Date/Time: 06/26/221557 Sign date/Time: 06/26/221558 Procedure Note Umair Taylor MD - 08/27/2023 [facility] Diagnostic Imaging Department [address] [place] [address] Patient: LEXAMARITZA Best/Age/Sex: 1950 - 72 - F Unit#: [id number] Location/Status: SPDIMAM/REG CLI Mnemonic/Ordering Site: [facility] Ordering Physician: CHIP TAO MD [facility] Dexa Axial Skeleton - 06/26/22 - 1019 [facility] Dexa Axial Skeleton INDICATION: POSTMENOPAUSAL Technique: [...] IMPRESSION: Findings suggesting normal bone mineral density. [id number] Dictating Physician: UMAIR TAYLOR MD Electronically Signed by: UMAIR TAYLOR MD Dic Date/Time: 06/26/221557 Sign date/Time: 06/26/221558 Chip Tao MD IMG BI PROCEDURES Final Result from Last 3 Months or Most Recently Relevant to Health Maintenance Insurance MEDICARE [facility] Care Teams International [employer] Music Librarian Relationship Specialty Start Date End Date Ebony Jarrett PA [address] [place] [address], [address] [place] [address] PCP - General 02/21/25
== END 2025-06-27 11:18 | disposition home or self-care (01) ==
LOC: HO.RHES 10:22
PROVIDERS: Visit Provider Internal Medicine Rheumatology
DX: R76.89 Other specified abnormal immunological findings in serum (principal); I73.00 Raynaud's syndrome without gangrene; M35.00 Sjogren syndrome, unspecified
CPT/HCPCS: 99214; G2211

== ENCOUNTER 2025-06-27 10:21 | Outpatient (REF) | payer MEDICARE, SELFPAY ==
--- OUTSIDE RECORDS SUMMARY | 2025-06-27 13:39 | XMS_ITS | Patient Health Record ---
Author Organization [facility] [place] Address [address] [facility] [place] [address] Care Team Providers Care Employment Attorney Name Role Phone Abraham Sutton Primary Care Provider Unavailabl e Bc Elle Unavailable [phone] Allergies Allergen (clinical drug ingredient) Drug/Non Drug [...] primary osteoarthritis of the ankle and/or foot (649333055) Primary osteoarthrit is, right ankle and foot (M19.071) Active confirmed Problem Localized, primary osteoarthritis of the ankle and/or foot (944845584) Primary osteoarthrit is, left ankle and foot (M19.072) Active confirmed Problem Acquired hammer toe of right foot (7851917068665549) Other hammer toe(s) (acquired), right foot (M20.41) Active confirmed Problem Acquired hammer toe of left foot (0522027935367166) Other hammer toe(s) (acquired), left foot (M20.42) Active confirmed Plan Of Treatment No Information Insurance Providers Payer Name Payer Address Payer Phone Subscriber Number Group Number Insured Name Patient Relationship to Insured Coverage Start Date Coverage End Date Medicare National Govt Svcs Inc [address] [place] [address] [id number] Pema Yancey Self - patient is the insured [employer] Blue Shield [address] [place] [address] [id number] Pema Yancey Self - patient is [...]
[2025-06-27 14:03] LABS: Erythrocyte Sedimentation Rate 21 MM/HR (0-20)
== END 2025-06-27 10:22 | disposition home or self-care (01) ==
LOC: HO.HKASLDS 10:21
PROVIDERS: Visit Provider Internal Medicine Rheumatology
DX: R76.89 Other specified abnormal immunological findings in serum (principal); I73.00 Raynaud's syndrome without gangrene; M35.00 Sjogren syndrome, unspecified; Z01.84 Encounter for antibody response examination
CPT/HCPCS: 36415; 82784; 85652; 86140; 86160; 86334; 99212